=== PATIENT | male | born 1955 | race Caucasian/White ===

== ENCOUNTER → 2020-04-18 10:44 | Outpatient (BNVA) | payer OTHER, SELFPAY | PROVIDERS: Family Provider Family Medicine; Visit Provider Nurse Practitioner | DX: U07.1 COVID-19 (principal) | CPT/HCPCS: 87635 ==

== ENCOUNTER 2021-01-16 09:17 | Outpatient (CLI) | payer OTHER, MEDICARE, SELFPAY ==
--- NOTE | 2021-01-16 09:26 | MR_ITS ---
WS: [id number] MRI LUMBAR SPINE NONCONTRAST HISTORY: Paresthesia; chronic BACK PAIN COMPARISON: CT lumbar spine 02/23/2013 TECHNIQUE: Sagittal and axial multisequence imaging is submitted. Normal lumbar alignment with no compression fractures or marrow edema. Mild disc space narrowing and desiccation at L3-4. No marrow edema or fracture. Conus terminates normally at L1-2 disc level. L1-L2: Normal. L2-L3: Mild asymmetric disc bulging to the LEFT. Broad-based disc protrusion with annular fissure in the LEFT foramen and extraforaminal. L3-L4: Mild annular disc bulging and osteophytic ridging. Mild bilateral foraminal stenosis and subar ticular recess narrowing. L4-L5: Mild annular disc bulging. Diffuse osteophytic ridging around the vertebral bodies with ligame ntum flavum disease and facet arthritis. Moderate bilateral foraminal stenosis L5-S1: Mild annular disc bulge is asymmetric to the LEFT. Disc osteophyte complex extending into the LEFT foramen with facet arthritis. Central shallow disc protrusion. More broad-based disc protrusion with annular fissure into the LEFT foramen. Severe LEFT foraminal stenosis and mild on the RIGHT. Paravertebral soft tissues are normal. MR/MR lumbar spine wo con* [id number] IMPRESSION: 1. No fracture. 2. Severe LEFT foraminal stenosis at L5-S1. 3. Moderate bilateral foraminal stenosis at L4-5. 4. Multilevel facet joint arthritis and spondylosis. 5. Broad-based disc protrusion LEFT foramen and extraforaminal at L2-3.
== END 2021-01-16 09:18 | disposition home or self-care (01) ==
LOC: RADSHAW 09:18
PROVIDERS: PCP Family Medicine; Visit Provider Family Medicine
DX: R20.9 Unspecified disturbances of skin sensation (principal); M54.89 Other dorsalgia; M48.07 Spinal stenosis, lumbosacral region; M48.061 Spinal stenosis, lumbar region without neurogenic claudication; M51.26 Other intervertebral disc displacement, lumbar region; M47.816 Spondylosis without myelopathy or radiculopathy, lumbar region
CPT/HCPCS: 72148

== ENCOUNTER 2021-09-18 14:37 | Outpatient (CLI) | payer MEDICARE, SELFPAY ==
--- NOTE | 2021-09-18 14:43 | XR_ITS ---
WS: [id number] XR shoulder RT min 2V* [id number] REASON FOR EXAM: RIGHT SHOULDER PAIN FINDINGS: No fracture or dislocation. No focal bone lesion. Narrowing of the acromioclavicular joint with marginal osteophytes. Glenohumeral joint is intact and relatively well-preserved. No soft tissue abnormality. XR/XR shoulder RT min 2V* [id number] IMPRESSION: No acute abnormality. Osteoarthritis of the acromioclavicular joint.
== END 2021-09-18 14:38 | disposition home or self-care (01) ==
LOC: RAD 14:40
PROVIDERS: PCP Family Medicine; Visit Provider Family Medicine
DX: M19.011 Primary osteoarthritis, right shoulder (principal)
CPT/HCPCS: 73030

== ENCOUNTER 2021-09-30 12:00 | Outpatient (CLI) | payer MEDICARE, SELFPAY | END 2021-09-30 12:01 | disposition home or self-care (01) | LOC: SLEEP 10-02 11:52 | PROVIDERS: PCP Family Medicine; Visit Provider Family Medicine | DX: G47.10 Hypersomnia, unspecified (principal) | CPT/HCPCS: G0399 ==

== ENCOUNTER → 2022-05-07 09:50 | Outpatient (BNVA) | payer MEDICARE, SELFPAY | PROVIDERS: PCP Family Medicine; Visit Provider Family Medicine | DX: E78.5 Hyperlipidemia, unspecified (principal) | CPT/HCPCS: 80053; 80061 ==

== ENCOUNTER → 2022-08-02 16:03 | Outpatient (BNVA) | payer MEDICARE, SELFPAY | PROVIDERS: PCP Family Medicine; Visit Provider Registered Nurse Neonatal Intensive Care | DX: R05.9 Cough, unspecified (principal) | CPT/HCPCS: 87426 ==

== ENCOUNTER → 2023-02-05 10:16 | Outpatient (BNVA) | payer MEDICARE, SELFPAY | PROVIDERS: PCP Family Medicine; Visit Provider Family Medicine | DX: Z00.00 Encounter for general adult medical examination without abnormal findings (principal); E78.00 Pure hypercholesterolemia, unspecified; I10 Essential (primary) hypertension; Z13.1 Encounter for screening for diabetes mellitus | CPT/HCPCS: 80053; 80061; 83036; 84153; 85025 ==

== ENCOUNTER → 2023-05-13 09:47 | Outpatient (BNVA) | payer MEDICARE, SELFPAY | PROVIDERS: PCP Family Medicine; Visit Provider Family Medicine | DX: E78.5 Hyperlipidemia, unspecified (principal); I25.10 Atherosclerotic heart disease of native coronary artery without angina pectoris | CPT/HCPCS: 80048; 80061 ==

== ENCOUNTER → 2023-07-06 08:38 | Outpatient (BNVA) | payer MEDICARE, SELFPAY | PROVIDERS: PCP Family Medicine; Visit Provider Family Medicine | DX: E78.00 Pure hypercholesterolemia, unspecified (principal) | CPT/HCPCS: 80061 ==

== ENCOUNTER → 2023-11-12 10:03 | Outpatient (BNVA) | payer MEDICARE, SELFPAY | PROVIDERS: PCP Family Medicine; Visit Provider Family Medicine | DX: R73.9 Hyperglycemia, unspecified (principal) | CPT/HCPCS: 83036 ==

== ENCOUNTER → 2023-12-02 10:09 | Outpatient (BNVA) | payer MEDICARE, SELFPAY | PROVIDERS: PCP Family Medicine; Visit Provider Family Medicine | DX: E11.9 Type 2 diabetes mellitus without complications (principal); E78.00 Pure hypercholesterolemia, unspecified | CPT/HCPCS: 80053; 80061; 83036 ==

== ENCOUNTER → 2024-05-02 08:02 | Outpatient (BNVA) | payer MEDICARE, SELFPAY | PROVIDERS: PCP Family Medicine; Visit Provider Family Medicine | DX: Z00.00 Encounter for general adult medical examination without abnormal findings (principal); I10 Essential (primary) hypertension; E78.00 Pure hypercholesterolemia, unspecified; E11.9 Type 2 diabetes mellitus without complications | CPT/HCPCS: 85025 ==

== ENCOUNTER → 2024-05-04 09:50 | Outpatient (BNVA) | payer MEDICARE, SELFPAY | PROVIDERS: PCP Family Medicine; Visit Provider Family Medicine | DX: N18.9 Chronic kidney disease, unspecified (principal) | CPT/HCPCS: 80053; 80061; 83036; 85025 ==

== ENCOUNTER → 2024-09-15 10:00 | Outpatient (BNVA) | payer MEDICARE, SELFPAY | PROVIDERS: PCP Family Medicine; Visit Provider Family Medicine | DX: N18.9 Chronic kidney disease, unspecified (principal); E11.9 Type 2 diabetes mellitus without complications; Z00.00 Encounter for general adult medical examination without abnormal findings; E78.00 Pure hypercholesterolemia, unspecified; I10 Essential (primary) hypertension | CPT/HCPCS: 80053; 80061; 83036; 85025 ==

== ENCOUNTER → 2025-06-20 08:18 | Outpatient (BNVA) | payer MEDICARE, SELFPAY | PROVIDERS: PCP Family Medicine; Visit Provider Family Medicine | DX: R73.9 Hyperglycemia, unspecified (principal); I25.10 Atherosclerotic heart disease of native coronary artery without angina pectoris; R35.1 Nocturia | CPT/HCPCS: 80053; 80061; 83036; 84153; 85025 ==

== ENCOUNTER → 2025-06-25 16:48 | Outpatient (BNVA) | payer MEDICARE, SELFPAY | PROVIDERS: PCP Family Medicine; Visit Provider Family Medicine | DX: R09.81 Nasal congestion (principal) | CPT/HCPCS: 85025; 85651; 86140 ==

== ENCOUNTER 2025-09-03 12:32 | Emergency (ER) | payer MEDICARE, SELFPAY ==
[2025-09-03 12:50] VITALS: BP 167/80; PULSE 58; TEMP 36.6; O2SAT 99; BMI 24.3
--- OUTSIDE RECORDS SUMMARY | 2025-09-03 12:58 | XMS_ITS | Encounter Summary ---
Author Organization [facility] Address [address] [place] [address] Care Team Providers Care Breast Worker Name Role Phone Charlie Magana MD Primary Care Provider + [phone] Encounter Details Date Type Department Care Team (Latest Contact Info) Description 10/26/2006 Outpatient Historical [facility] Cardiology- Johan [address] [place] [address] Gillian Cantu FNP [address] [place] [address] Benign Hypertension (Primary Dx); Family History of Other Cardiovascular Diseases; Other and Unspecified Hyperlipidemia Social History Tobacco Use Types Packs/Day Years Used Date Smoking Tobacco: Never Assessed Sex and Gender Information Value Date Recorded Sex Assigned at Not on file Legal Sex Male 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
--- OUTSIDE RECORDS SUMMARY | 2025-09-03 12:58 | XMS_ITS | Encounter Summary ---
Author Organization [facility] Address [address] [place] [address] Care Team Providers Care Link Machine Operator Name Role Phone Charlie Magana MD Primary Care Provider + [phone] Encounter Details Date Type Department Care Team (Latest Contact Info) Description 08/11/2008 Outpatient Historical [facility] Cardiac [address] [place] [phone] Ed, Physician NO ADDRESS ON FILE Harvey Joseph MD NO ADDRESS ON FILE Jules Mensah MD [address] [place] [address] [place] [phone] Unspecified Chest Pain Social History Tobacco Use Types Packs/Day Years Used Date Smoking Tobacco: Never Assessed Sex and Gender Information Value Date Recorded Sex Assigned at Not on file Legal Sex Male 4:31 AM SUPERVISOR KENNEL Gender Identity Not on file Sexual Orientation Not on file documented as of this encounter Plan of Treatment Not on file documented as of this encounter Procedures Procedure Name Priority Date/Time Associated Diagnosis Comments POC GLUCOSE Routine 08/12/2008 8:54 PM SUPERVISOR KENNEL CARDIAC ENZYMES Routine 08/12/2008 12:25 PM SUPERVISOR KENNEL CARDIAC ENZYMES Routine 08/12/2008 6:09 AM SUPERVISOR KENNEL CBC WITH DIFFERENTIAL Routine 08/12/2008 6:09 AM SUPERVISOR KENNEL BASIC METABOLIC PANEL Routine 08/12/2008 6:09 AM SUPERVISOR KENNEL CARDIAC ENZYMES Stat 08/12/2008 12:25 AM SUPERVISOR KENNEL CBC WITH DIFFERENTIAL Stat 08/12/2008 12:25 AM SUPERVISOR KENNEL PTT Stat 08/12/2008 12:25 AM SUPERVISOR KENNEL PROTIME-INR Stat 08/12/2008 12:25 AM SUPERVISOR KENNEL BASIC METABOLIC PANEL Stat 08/12/2008 12:25 AM SUPERVISOR KENNEL XR CHEST PA OR AP 1 VW Routine 08/12/2008 12:19 AM SUPERVISOR KENNEL documented in this encounter Results * (ABNORMAL) POC GLUCOSE (08/12/2008 8:54 PM SUPERVISOR KENNEL) Pathologist [facility] GLUCOSE POC 119(H) 60 - 100 mg/dL [facility] Venous blood specimen (specimen) 08/12/2008 8:54 PM SUPERVISOR KENNEL 08/12/2008 9:28 PM SUPERVISOR KENNEL us Jules Mensah MD POINT OF CARE TESTING Final Re sult INTERFACE SYSTEM Refer to clinic/hospital department [facility]# [id number] [address] [place] [address] * CARDIAC ENZYMES (08/12/2008 12:25 PM SUPERVISOR KENNEL) [facility] TROPONIN I <0.1 0.0 - 1.3 ng/mL [facility] CKMB 0.3 0.0 - 5.0 ng/mL [facility] Blood specimen (specimen) 08/12/2008 12:25 PM SUPERVISOR KENNEL 08/12/2008 12:31 PM SUPERVISOR KENNEL us Harvey Joseph MD CHEMISTRY ORDERABLES Shaista l Result Performing Organization Address [facility] de Phone Number INTERFACE SYSTEM Refer to clinic/hospital department [facility] CLIA# [id number] [address] [place] [address] * CARDIAC ENZYMES (08/12/2008 6:09 AM SUPERVISOR KENNEL) TROPONIN I <0.1 0.0 - 1.3 ng/mL [facility] CKMB 0.5 0.0 - 5.0 ng/mL [facility] Blood specimen (specimen) 08/12/2008 6:09 AM SUPERVISOR KENNEL 08/12/2008 6:17 AM SUPERVISOR KENNEL Harvey Joseph MD CHEMISTRY ORDERABLES Shaista l Result Performing Organization Address [facility] de Phone Number INTERFACE SYSTEM Refer to clinic/hospital department [facility] CLIA# [id number] [address] [place] [phone] * BASIC METABOLIC PANEL (08/12/2008 6:09 AM SUPERVISOR KENNEL) Pathologist [facility] OSMOLALITY, CALCULATED 293 275 - 295 mOsm/Kg [facility] CREATININE 1.1 0.7 - 1.5 mg/dL [facility] CALCIUM 9.5 8.4 - 10.5 mg/dL [facility] GLUCOSE 110 70 - 110 mg/dL [facility] CHLORIDE 106 95 - 110 mEq/L [facility] ANION GAP 13 9 - 20 mEq/L [facility] SODIUM 141 136 - 145 mEq/L [facility] BUN 18 9 - 20 mg/dL [facility] CO2 26 22 - 32 mmol/l [facility] POTASSIUM 4.2 3.5 - 5.0 mEq/L [facility] Blood specimen (specimen) 08/12/2008 6:09 AM SUPERVISOR KENNEL 08/12/2008 6:17 AM SUPERVISOR KENNEL Jules Mensah MD CHEMISTRY ORDERABLES Final Res ult INTERFACE SYSTEM Refer to clinic/hospital department [facility] CLIA# [id number] [facility] [place] [address] * (ABNORMAL) CBC WITH DIFFERENTIAL (08/12/2008 6:09 AM SUPERVISOR KENNEL) NEUTROPHIL ABSOLUTE 5.3 2.0 - 8.0 K/ul [facility] NEUTROPHILS 62.6 42.2 - 75.2 % [facility] HEMATOCRIT 41.8 41.0 - 53.0 % [facility] EOSINOPHILS 3.3 0.0 - 7.0 % [facility] PLATELETS 276 140 - 440 K/ul [facility] EOSINOPHIL ABSOLUTE 0.3 0.0 - 0.7 K/ul [facility] RBC 4.62 4.60 - 6.20 Mil/ul [facility] LYMPHOCYTES 22.4(L) 24.0 - 44.0 % [facility] MCHC 34.0 30.0 - 35.0 g/dL [facility] LYMPHOCYTE ABSOLUTE 1.9 1.2 - 4.0 K/ul [facility] MCV 90.5 84.0 - 103.0 Fl [facility] MPV 9.1 8.9 - 12.8 Fl [facility] BASOPHILS ABSOLUTE 0.1 0.0 - 0.2 K/ul [facility] BASOPHILS 0.6 0.0 - 1.0 % [facility] HEMOGLOBIN 14.2 14.0 - 18.0 g/dL [facility] RDW 13.3 11.0 - 14.5 % [facility] MONOCYTE ABSOLUTE 0.9(H) 0.1 - 0.6 K/ul [facility] MONOCYTES 11.1(H) 2.0 - 10.0 % [facility] WBC 8.4 4.8 - 10.8 K/ul [facility] MCH 30.7 27.0 - 34.0 pg [facility] Blood specimen (specimen) 08/12/2008 6:09 AM SUPERVISOR KENNEL 08/12/2008 6:17 AM SUPERVISOR KENNEL Jules Mensah MD HEMATOLOGY ORDERABLES Final Re sult Performing Organization Address [facility] Phone Number INTERFACE SYSTEM Refer to clinic/hospital department [facility] CLIA# [id number] [address] [place] [address] * (ABNORMAL) BASIC METABOLIC PANEL (08/12/2008 12:25 AM SUPERVISOR KENNEL) ANION GAP 9 9 - 20 mEq/L [facility] SODIUM 136 136 - 145 mEq/L [facility] BUN 21(H) 9 - 20 mg/dL [facility] CO2 28 22 - 32 mmol/l [facility] POTASSIUM 3.9 3.5 - 5.0 mEq/L [facility] OSMOLALITY, CALCULATED 284 275 - 295 mOsm/Kg [facility] CREATININE 1.1 0.7 - 1.5 mg/dL [facility] CALCIUM 9.6 8.4 - 10.5 mg/dL [facility] GLUCOSE 115(H) 70 - 110 mg/dL [facility] CHLORIDE 103 95 - 110 mEq/L [facility] Blood specimen (specimen) 08/12/2008 12:25 AM SUPERVISOR KENNEL 08/12/2008 12:25 AM SUPERVISOR KENNEL Harvey Joseph MD CHEMISTRY ORDERABLES Shaista l Result Performing Organization Address [facility] Phone Number INTERFACE SYSTEM Refer to clinic/hospital department [facility] CLIA# [id number] [facility] [place] [address] * (ABNORMAL) CBC WITH DIFFERENTIAL (08/12/2008 12:25 AM SUPERVISOR KENNEL) WBC 11.3(H) 4.8 - 10.8 K/ul [facility] MCH 31.1 27.0 - 34.0 pg [facility] NEUTROPHIL ABSOLUTE 8.5(H) 2.0 - 8.0 K/ul [facility] NEUTROPHILS 75.8(H) 42.2 - 75.2 % [facility] HEMATOCRIT 44.6 41.0 - 53.0 % [facility] EOSINOPHILS 2.4 0.0 - 7.0 % [facility] PLATELETS 318 140 - 440 K/ul [facility] EOSINOPHIL ABSOLUTE 0.3 0.0 - 0.7 K/ul [facility] RBC 4.99 4.60 - 6.20 Mil/ul [facility] LYMPHOCYTES 13.5(L) 24.0 - 44.0 % [facility] MCHC 34.8 30.0 - 35.0 g/dL [facility] LYMPHOCYTE ABSOLUTE 1.5 1.2 - 4.0 K/ul [facility] MCV 89.4 84.0 - 103.0 Fl [facility] MPV 9.2 8.9 - 12.8 Fl [facility] BASOPHILS ABSOLUTE 0.0 0.0 - 0.2 K/ul [facility] BASOPHILS 0.3 0.0 - 1.0 % [facility] HEMOGLOBIN 15.5 14.0 - 18.0 g/dL [facility] RDW 13.2 11.0 - 14.5 % [facility] MONOCYTE ABSOLUTE 0.9(H) 0.1 - 0.6 K/ul [facility] MONOCYTES 8.0 2.0 - 10.0 % [facility] Blood specimen (specimen) 08/12/2008 12:25 AM SUPERVISOR KENNEL 08/12/2008 12:25 AM SUPERVISOR KENNEL Harvey Joseph MD HEMATOLOGY ORDERABLES Fin al Result INTERFACE SYSTEM Refer to clinic/hospital department [facility] CLIA# [id number] [address] [place] [phone] * PTT (08/12/2008 12:25 AM SUPERVISOR KENNEL) PTT 31.2 22.5 - 36.5 Secs [facility] Comment: Therapeutic Range: Hi-level PE/DVT heparin protocol 80.1 -95.0 sec Lo-level PE/DVT heparin protocol 67.1 - 80.0 sec Cardiac Heparin Protocol 67.1 - 85.0 sec Neuro Heparin Protocol 67.1 - 80.0 sec As of 12/22/2007 note change in APTT Normal Range. Blood specimen (specimen) 08/12/2008 12:25 AM SUPERVISOR KENNEL 08/12/2008 12:25 AM SUPERVISOR KENNEL us Harvey Joseph MD HEMATOLOGY ORDERABLES Fin al Result INTERFACE SYSTEM Refer to clinic/hospital department [facility] CLIA# [id number] [address] [place] [phone] * PROTIME-INR (08/12/2008 12:25 AM SUPERVISOR KENNEL) INR 1.0 [facility] Comment: Expected Values for INR: DVT/PE Goal INR 2.5; range 2.0 - 3.0 Valve Replacement Tissue Goal INR 2.5; range 2.0 - 3.0 Mechanical Goal INR 3.0; range 2.5 - 3.5 POST-PR Goal INR 2.5; range 2.0 - 3.0 or Goal 3.0; range 2.5 - 3.5 Atrial Fibrillation Goal INR 2.5; range 2.0 - 3.0 Ischemic Stroke Goal INR 2.5; range 2.0 - 3.0 For additional information see Guidelines for Anticoagulation available from the pharmacy [facility] [phone] PROTIME 14.1 12.8 - 15.8 Secs [facility] Comment:As of 2007 not e change in normal range. Blood specimen (specimen) 08/12/2008 12:25 AM SUPERVISOR KENNEL 08/12/2008 12:25 AM SUPERVISOR KENNEL us Harvey Joseph MD HEMATOLOGY ORDERABLES Fin al Result Performing Organization Address [facility] Phone Number INTERFACE SYSTEM Refer to clinic/hospital department [facility] CLIA# [id number] [address] [place] [id number] * CARDIAC ENZYMES (08/12/2008 12:25 AM SUPERVISOR KENNEL) TROPONIN I <0.1 0.0 - 1.3 ng/mL [facility] CKMB 0.3 0.0 - 5.0 ng/mL [facility] Blood specimen (specimen) 08/12/2008 12:25 AM SUPERVISOR KENNEL 08/12/2008 12:25 AM SUPERVISOR KENNEL Harvey Joseph MD CHEMISTRY ORDERABLES Shaista l Result Performing Organization Address [facility] Phone Number INTERFACE SYSTEM Refer to clinic/hospital department [facility] CLIA# [id number] [address] [place] [id number] * XR CHEST PA OR AP (08/12/2008 12:19 AM SUPERVISOR KENNEL) Anatomical Region Laterality Modality Chest Other 08/12/2008 12:1 9 AM SUPERVISOR KENNEL Narrative 08/13/2008 12:52 AM SUPERVISOR KENNEL Exam: Chest - Portable Date/Time of Exam: Aug 12, 2008 12:19:59 AM History: Chest pain. Comparison: None. Findings: Lungs show no confluent airspace disease or air bronchograms. There is a radiodensity over the left anterior 6th rib end that is secondary to confluence of shadows. No effusions are present. Cardiac silhouette and pulmonary vasculature are unremarkable. Extensive calcification in the subcarinal nodes is present. Cardiac silhouette is within normal limits in size. vasculature is unremarkable. Bony structures are unremarkable. Impression: Unremarkable study. - Dictated By: MD Bryce Lyles Electronically Signed By: MD Bryce LylesMD Date Signed: 08/13/08 Procedure Note Bryce Lyles A - 08/13/2008 Exam: Chest - Portable Date/Time of Exam: Aug 12, 2008 12:19:59 AM History: Chest pain. Comparison: None. Findings: Lungs show no confluent airspace disease or air bronchograms. There is aradiodensity over the left anterior 6th rib end that is secondary to confluence of shadows. Noeffusions are present. Cardiac silhouette and pulmonary vasculature are unremarkable. Extensivecalcification in the subcarinal nodes is present. Cardiac silhouette is within normal limits in size. vasculatureis unremarkable. Bony structures are unremarkable. Impression: Unremarkable study. - Dictated By: MD Bryce Lyles Electronically Signed By: MD Bryce LylesMD Date Signed: 08/13/08 Harvey Joseph MD DIAGNOSTIC IMAGING ORDERA BLES Final Result documented in this encounter Visit Diagnoses Diagnosis Chest pain, unspecified documented in this encounter Care Teams Link Machine Operator Relationship Specialty [place] [address] [place] [phone] PCP - General Family Practice 12/01/16 documented as of this encounter
--- OUTSIDE RECORDS SUMMARY | 2025-09-03 12:58 | XMS_ITS | Encounter Summary ---
Author Organization [facility] Address [address] [place] [address] Care Team Providers Care Deflector Operator Name Role Phone Charlie Magana MD Primary Care Provider + [phone] Encounter Details Date Type Department Care Team (Latest Contact Info) Description 09/30/2008 Outpatient Historical [facility] Emergency Department [address] [place] [phone] Ed, Physician NO ADDRESS ON FILE Manny James MD [address] [place] [phone] Jules Mensah MD [address] [place] [address], [place] [address] Unspecified Chest Pain; Unspecified Essential Hypertension; Other and Unspecified Hyperlipidemia; Intermediate Coronary Syndrome (CMS/HCC) Social History Tobacco Use Types Packs/Day Years Used Date Smoking Tobacco: Never Assessed Sex and Gender Information Value Date Recorded Sex Assigned at Not on file Legal Sex Male 4:31 AM ROOFER METAL Gender Identity Not on file Sexual Orientation Not on file documented as of this encounter Plan of Treatment Not on file documented as of this encounter Procedures Procedure Name Priority Date/Time Associated Diagnosis Comments CARDIAC ENZYMES Routine 10/01/2008 6:16 AM ROOFER METAL CARDIAC ENZYMES Routine 10/01/2008 12:03 AM ROOFER METAL XR CHEST PA OR AP 1 VW Routine 09/30/2008 6:30 PM ROOFER METAL CARDIAC ENZYMES Stat 09/30/2008 6:22 PM ROOFER METAL CBC WITH DIFFERENTIAL Stat 09/30/2008 6:22 PM ROOFER METAL PTT Stat 09/30/2008 6:22 PM ROOFER METAL PROTIME-INR Stat 09/30/2008 6:22 PM ROOFER METAL BASIC METABOLIC PANEL Stat 09/30/2008 6:22 PM ROOFER METAL documented in this encounter Results * CARDIAC ENZYMES (10/01/2008 6:16 AM ROOFER METAL) TROPONIN I <0.1 0.0 - 1.3 ng/mL [facility] CKMB 0.5 0.0 - 5.0 ng/mL [facility] Blood specimen (specimen) 10/01/2008 6:16 AM ROOFER METAL 10/01/2008 6:25 AM ROOFER METAL us Manny James MD CHEMISTRY ORDERABLES Final R esult INTERFACE SYSTEM Refer to clinic/hospital department [facility]# [id number] [address] [place] [address] * CARDIAC ENZYMES (10/01/2008 12:03 AM ROOFER METAL) TROPONIN I <0.1 0.0 - 1.3 ng/mL [facility] CKMB 0.6 0.0 - 5.0 ng/mL [facility] Blood specimen (specimen) 10/01/2008 12:03 AM ROOFER METAL 10/01/2008 12:12 AM ROOFER METAL us Manny James MD CHEMISTRY ORDERABLES Final R esult INTERFACE SYSTEM Refer to clinic/hospital department [facility] CLIA# [id number] [facility] [place] [address] * XR CHEST PA OR AP (09/30/2008 6:30 PM ROOFER METAL) Anatomical Region Laterality Modality Chest Other 09/30/2008 6:30 PM ROOFER METAL Narrative 09/30/2008 7:24 PM ROOFER METAL A portable chest at 1826 was obtained and the prior exam is August 12, 2008. Heart size is normal and the aorta is ectatic. Calcified mediastinal lymph nodes are noted. There is no focal airspace opacity or effusion and no pneumothorax. Degenerative changes are noted in the spine. Impression: 1. No active pulmonary disease. Old granulomatous changes are noted. - Dictated By: Miranda Green M.D. Electronically Signed By: Miranda Green M.D. Date Signed: 09/30/08 Procedure Note Miranda Green MD - 09/30/2008 A portable chest at 1826 was obtained and the prior exam is August. Heart size is normal and the aorta is ectatic. Calcified mediastinal lymphnodes are noted. There is no focal airspace opacity or effusion and no pneumothorax. Degenerativechanges are noted in the spine. Impression: 1. No active pulmonary disease. Old granulomatous changes are noted. - Dictated By: Miranda Green M.D. Electronically Signed By: Miranda Green M.D. Date Signed: 09/30/08 us Manny James MD DIAGNOSTIC IMAGING ORDERABLE S Final Result * (ABNORMAL) BASIC METABOLIC PANEL (09/30/2008 6:22 PM ROOFER METAL) POTASSIUM 3.9 3.5 - 5.0 mEq/L [facility] OSMOLALITY, CALCULATED 296(H) 275 - 295 mOsm/Kg [facility] SODIUM 143 136 - 145 mEq/L [facility] CALCIUM 9.7 8.4 - 10.5 mg/dL [facility] CREATININE 1.0 0.7 - 1.5 mg/dL [facility] CHLORIDE 107 95 - 110 mEq/L [facility] BUN 16 9 - 20 mg/dL [facility] ANION GAP 14 9 - 20 mEq/L [facility] GLUCOSE 118(H) 70 - 110 mg/dL [facility] CO2 26 22 - 32 mmol/l [facility] Blood specimen (specimen) 09/30/2008 6:22 PM ROOFER METAL 09/30/2008 6:31 PM ROOFER METAL us Manny James MD CHEMISTRY ORDERABLES Final R esult INTERFACE SYSTEM Refer to clinic/hospital department [facility] CLIA# [id number] [address] [place] [address] * (ABNORMAL) CBC WITH DIFFERENTIAL (09/30/2008 6:22 PM ROOFER METAL) LYMPHOCYTE ABSOLUTE 1.2 1.2 - 4.0 K/ul [facility] MCV 88.2 84.0 - 103.0 Fl [facility] MPV 9.4 8.9 - 12.8 Fl [facility] BASOPHILS ABSOLUTE 0.0 0.0 - 0.2 K/ul [facility] BASOPHILS 0.4 0.0 - 1.0 % [facility] HEMOGLOBIN 15.6 14.0 - 18.0 g/dL [facility] RDW 13.2 11.0 - 14.5 % [facility] MONOCYTE ABSOLUTE 0.9(H) 0.1 - 0.6 K/ul [facility] MONOCYTES 11.1(H) 2.0 - 10.0 % [facility] WBC 8.5 4.8 - 10.8 K/ul [facility] MCH 30.8 27.0 - 34.0 pg [facility] NEUTROPHIL ABSOLUTE 6.1 2.0 - 8.0 K/ul [facility] NEUTROPHILS 72.2 42.2 - 75.2 % [facility] HEMATOCRIT 44.7 41.0 - 53.0 % [facility] EOSINOPHILS 2.2 0.0 - 7.0 % [facility] PLATELETS 287 140 - 440 K/ul [facility] EOSINOPHIL ABSOLUTE 0.2 0.0 - 0.7 K/ul [facility] RBC 5.07 4.60 - 6.20 Mil/ul [facility] LYMPHOCYTES 14.1(L) 24.0 - 44.0 % [facility] MCHC 34.9 30.0 - 35.0 g/dL [facility] Blood specimen (specimen) 09/30/2008 6:22 PM ROOFER METAL 09/30/2008 6:31 PM ROOFER METAL Manny James MD HEMATOLOGY ORDERABLES Final Result Performing Organization Address [facility] Phone Number INTERFACE SYSTEM Refer to clinic/hospital department [facility] CLIA# [id number] [address] [place] [address] * PTT (09/30/2008 6:22 PM ROOFER METAL) PTT 29.0 22.5 - 36.5 Secs [facility] Comment: Therapeutic Range: Hi-level PE/DVT heparin protocol 80.1 -95.0 sec Lo-level PE/DVT heparin protocol 67.1 - 80.0 sec Cardiac Heparin Protocol 67.1 - 85.0 sec Neuro Heparin Protocol 67.1 - 80.0 sec As of 12/22/2007 note change in APTT Normal Range. Blood specimen (specimen) 09/30/2008 6:22 PM ROOFER METAL 09/30/2008 6:31 PM ROOFER METAL Manny James MD HEMATOLOGY ORDERABLES Final Result Performing Organization Address [facility] Phone Number INTERFACE SYSTEM Refer to clinic/hospital department [facility] CLIA# [id number] [address] [place] [address] * PROTIME-INR (09/30/2008 6:22 PM ROOFER METAL) INR 1.0 [facility] Comment: Expected Values for INR: DVT/PE Goal INR 2.5; range 2.0 - 3.0 Valve Replacement Tissue Goal INR 2.5; range 2.0 - 3.0 Mechanical Goal INR 3.0; range 2.5 - 3.5 POST-AZ Goal INR 2.5; range 2.0 - 3.0 or Goal 3.0; range 2.5 - 3.5 Atrial Fibrillation Goal INR 2.5; range 2.0 - 3.0 Ischemic Stroke Goal INR 2.5; range 2.0 - 3.0 For additional information see Guidelines for Anticoagulation available from the pharmacy [facility] [phone] PROTIME 14.0 12.8 - 15.8 Secs [facility] Comment:As of 2007 not e change in normal range. Blood specimen (specimen) 09/30/2008 6:22 PM ROOFER METAL 09/30/2008 6:31 PM ROOFER METAL Manny James MD HEMATOLOGY ORDERABLES Final Result Performing Organization Address [facility] Phone Number INTERFACE SYSTEM Refer to clinic/hospital department [facility] CLIA# [id number] [address] [place] [address] * CARDIAC ENZYMES (09/30/2008 6:22 PM ROOFER METAL) CKMB 0.7 0.0 - 5.0 ng/mL [facility] TROPONIN I <0.1 0.0 - 1.3 ng/mL [facility] Blood specimen (specimen) 09/30/2008 6:22 PM ROOFER METAL 09/30/2008 6:31 PM ROOFER METAL Manny James MD CHEMISTRY ORDERABLES Final R esult Performing Organization Address [facility] de Phone Number INTERFACE SYSTEM Refer to clinic/hospital department [facility] CLIA# [id number] [address] [place] [address] documented in this encounter Visit Diagnoses Diagnosis Chest pain, unspecified Unspecified essential hypertension Other and unspecified hyperlipidemia Intermediate coronary syndrome (CMS/HCC) Intermediate coronary syndrome documented in this encounter Care Teams Deflector Operator Relationship Specialty Start Date End Date Charlie Magana MD [address] [place] [phone] PCP - General Family Practice 12/01/16 documented as of this encounter
--- OUTSIDE RECORDS SUMMARY | 2025-09-03 12:58 | XMS_ITS | Encounter Summary ---
Author Organization [facility] Address [address] [place] [address] Care Team Providers Care Power Reactor Supervisor Name Role Phone Charlie Magana MD Primary Care Provider + [phone] Encounter Details Date Type Department Care Team (Latest Contact Info) Description 05/26/2005 Outpatient Historical [facility] [address] [place] [phone] Pj Meraz MD NO ADDRESS ON FILE Benign hypertension (Primary Dx); MIXED HYPERLIPIDEMIA Social History Tobacco Use Types Packs/Day Years Used Date Smoking Tobacco: Never Assessed Sex and Gender Information Value Date Recorded Sex Assigned at Not on file 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
--- OUTSIDE RECORDS SUMMARY | 2025-09-03 12:58 | XMS_ITS | Clinical Summary ---
Author Organization [facility] Address [address] [place] [address] Care Team Providers Care Booster Pump Operator Name Role Phone Charlie Magana MD Primary Care Provider + [phone] Allergies Active Allergy Reactions Criticality Noted Date Comments Ampicillin Rash High 10/17/2008 Beta-Blockers (Beta-Adrenergic Blocking Agts) Other (See Comments) 11/21/2014 Fatigue and weakness Penicillins Rash,Unknown High 10/17/2008 Medications vit C/E/Zn/coppr/lut ein/zeaxan (PRESERVISION AREDS-2 ORAL) Take by mouth 2 times daily. 9 Active azelastine (ASTELIN) 137 mcg/actuation nasal spray Administer 2 Sprays in each nostril 2 times daily. Active pantoprazole (PROTONIX) 40 mg Tablet, Delayed Release (E.C.) Take 1 Tablet (40 mg) by mouth daily. 90 Tablet 3 3 Active aspirin (ECOTRIN EC) 81 mg Tablet, Delayed Release (E.C.) Take 81 mg by mouth daily. Active loratadine (CLARITIN) 10 mg tablet Active nitroglycerin (NITROSTAT) 0.4 mg Tablet, Sublingual Place 1 Tablet (0.4 mg) under tongue every 5 minutes as needed for Chest Pain. 25 Tablet 3 4 Active clopidogreL (PLAVIX) 75 mg Tablet Take 1 tablet by mouth once daily 90 Tablet 3 5 Active hydroCHLOROthiaz edy 25 mg tablet Take 1 tablet by mouth once daily 90 Tablet 3 5 Active rosuvastatin (CRESTOR) 40 mg tabletIndication s:Coronary artery disease, unspecified vessel or lesion type, unspecified whether angina present, unspecified whether [place] or transplanted heart,Dyslipidem ia TAKE 1 TABLET BY MOUTH ONCE DAILY AT BEDTIME 90 Tablet 3 5 Active dilTIAZem (Cartia XT) 240 mg Controlled Delivery 24 hour capsule Take 1 capsule by mouth once daily 90 Capsule 3 5 Active losartan (COZAAR) 100 mg tablet Take 1 tablet by mouth once daily 90 Tablet 3 5 Active evolocumab (Repatha SureClick) 140 mg/mL Pen Injector Inject 1 mL (140 mg) by subcutaneous injection every 2 weeks. 2 mL Active Active Problems Problem Noted Date Diagnosed Date Dyspnea on exertion 07/18/2024 Decreased exercise tolerance 07/18/2024 Abnormal cardiovascular stress test 07/11/2024 HTN, goal below 130/80 07/06/2024 Dyslipidemia, goal LDL below 70 07/06/2024 Exudative age-related macula r degeneration of left eye with active choroidal neovascularization 03/29/2024 Bilateral carotid artery stenosis 12/07/2018 Dyslipidemia 04/02/2015 Overview (07/06/2024): Dyslipidemia; 04/02/2015 9:05AM by Merlyn De La Rosa CMT, Office Visit; Promoted; acuity set as *; Nuclear sclerotic cataract of both eyes, early 1 10/09/2013 Age-related macular degeneration, dry, both eyes 08/09/2014 Lumbar radiculopathy 02/24/2013 Benign hypertension 10/17/2008 Overview (07/06/2024): HTN - Status is Inactive; 01/28/2018 4:46PM by Merlyn De La Rosa CMT, Annotation/Addendum; Promoted; acuity set as *; Coronary arteriosclerosis 10/17/2008 Overview (07/06/2024): August 2008 - Coronary angiography for evaluation of ACS revealse severe obstructive plaque throughout the proximal, mid and distal codominant RCA. LVEF 65%. Overlapping 3.5 x 18 mm, 3.5 x 28 mm, 3.5 x 33 mm and 3.5 x 23 mm Cypher drug eluting stents were successfully deployed to the RCA. 10/01/2008 - coronary angiography for Evaluation of chest pain reveals an ostial 95% right coronary artery lesion. The long stented area of the proximal to mid right coronary artery was widely patent except for a small focal 70% stenosis in the mid vessel. The left main was widely patent. The circumflex and the codominant vessel. There was a 20% proximal lesion and a 25% lesion in the posterolateral branch. TheLAD had a 25% mid lesion. LVEF 60%. A 3.5 X 13 MM Cypher was deployed to the ostial RCA and a 3.5 x 8 mm Cypher was deployed to the in-stent restenosis of the RCA. 10/19/2008 - Coronary angiography for evaluation of chest pain reveled widely patent stented area from the ostium down to the posterior descending branch of the codominant right coronary artery. Mild calcified obstructive plaque along the proximal and mid circumflex coronary artery and along the mid left anterior descending. Normal left ventricular function. No mitral insufficiency 11/2010 - Stress ECHO for routine evaluation does not reveal any evidence for coronary ischemia. 07/2012 - Nuclear ST for evaluation of chest pAIN: 1. Myocardial perfusion imaging is normal. No obvious reversible defect is noted to suggest significant myocardial ischemia . No obvious fixed defect is noted to suggest transmural myocardial injury. 2. Global left ventricular systolic function is normal without segmental abnormalities and ejection fraction of 68%. 3. Nonischemic response to stress by electrocardiographic criterion with development of chest pain (optimal for myocardial imaging and reported separately). Excellent functional capacity. 4. No previous study is available for direct comparison. August 2008 - Coronary angiography for evaluation of ACS revealse severe obstructive plaque throughout the proximal, mid and distal codominant RCA. LVEF 65%. Overlapping 3.5 x 18 mm, 3.5 x 28 mm, 3.5 x 33 mm and 3.5 x 23 mm Cypher drug eluting stents were successfully deployed to the RCA. 10/01/2008 - coronary angiography for Evaluation of chest pain reveals an ostial 95% right coronary artery lesion. The long stented area of the proximal to mid right coronary artery was widely patent except for a small focal 70% stenosis in the mid vessel. The left main was widely patent. The circumflex and the codominant vessel. There was a 20% proximal lesion and a 25% lesion in the posterolateral branch. TheLAD had a 25% mid lesion. LVEF 60%. A 3.5 X 13 MM Cypher was deployed to the ostial RCA and a 3.5 x 8 mm Cypher was deployed to the in-stent restenosis of the RCA. 10/19/2008 - Coronary angiography for evaluation of chest pain reveled widely patent stented area from the ostium down to the posterior descending branch of the codominant right coronary artery. Mild calcified obstructive plaque along the proximal and mid circumflex coronary artery and along the mid left anterior descending. Normal left ventricular function. No mitral insufficiency 11/2010 - Stress ECHO for routine evaluation does not reveal any evidence for coronary ischemia. 07/2012 - Nuclear ST for evaluation of chest pAIN: 1. Myocardial perfusion imaging is normal. No obvious reversible defect is noted to suggest significant myocardial ischemia . No obvious fixed defect is noted to suggest transmural myocardial injury. 2. Global left ventricular systolic function is normal without segmental abnormalities and ejection fraction of 68%. 3. Nonischemic response to stress by electrocardiographic criterion with development of chest pain (optimal for myocardial imaging and reported separately). Excellent functional capacity. 4. No previous study is available for direct comparison. CAD (CORONARY ARTERY DISEASE); 01/28/2018 4:29PM by Merlyn De La Rosa CMT, Office Visit; Promoted; acuity set as *; Resolved Problems Problem Noted Date Diagnosed Date Resolved Date Post-COVID chronic cough 07/06/202412/2023 Penile pain 07/20/2019 07/06/2024 Acute sinusitis 07/23/2016 07/06/2024 Overview (07/06/2024): ACUTE SINUSITIS - Status is Inactive; Recorded 07/23/2016 4:49PM by Vero Melendez LPN, Annotation/Addendum; Promoted; acuity set as *; Substernal chest pain 07/13/20122023 Other and unspecified hyperlipidemia 12/12/2008 07/06/2024 Overview (01/30/2021): July 2009 - total cholesterol 116 HDL 30 and LDL 65, triglycerides of 106 December 2009 - total cholesterol 163, HDL 36, triglycerides of 110, LDL 105 February 2010 - total cholesterol 127, HDL 41, LDL 70 and [id number] October 2010 - total cholesterol 149, HDL 36, LDL 99 and triglycerides 72 12/2011 - total cholesterol 114, HDL 29, LDL 67 and triglycerides 90, AST 21, ALT 21 Gastritis 11/20/2008 07/06/2024 Overview (07/06/2024): GASTRITIS - Status is Inactive; Recorded 07/23/2016 4:49PM by Vero Melendez LPN, Annotation/Addendum; Promoted; acuity set as *; Burning chest pain 10/17/2008 9 Encounters Date Type Department Care Team Description 06/26/2025 9:40 AM CDT Office Visit [facility] Ophthalmology [place] [address] [place] [address] Leslie Fields MD Exudative age-related macular degeneration of both eyes with active choroidal neovascularization (CMS/HCC) (Primary Dx); Cystoid macular edema of both eyes; Nuclear sclerotic cataract of both eyes; Night blindness 06/19/2025 Refill [facility] [address] [place] [address] Prince Lui MD 06/05/2025 External Device Data STL ABSTRACTION Provider, Abstract from Last 3 Months Immunizations Immunization Administration Dates Next Due (PNEUMOVAX 23)(50 YRS UP) PN EUMOCOCCAL POLYSACCHARIDE (PPV23) 0.5 ML, IM 10/02/2008 (TDVAX)(7 YRS UP) TETANUS AN D DIPHTHERIA TOXOIDS, ADSORBED (2 LF OF TETANUS TOXOID AND 2 LF OF DIPHTHERIA TOXOID), 0.5ML (PF), IM 10/17/1999 Influenza Seasonal Unspecifi ed Formulation IM 07/13/2015,10/02/2008,10/17/2004 Family History Medical History Relation Name Comments Heart Disease Father Macular Degen Father Stroke Father Glaucoma Maternal Grandmother Heart Disease Mother Stroke Mother Glaucoma Paternal Grandfather Macular Degen Paternal Grandfather Glaucoma Paternal Grandmother Macular Degen Paternal Uncle 1 Macular Degen Paternal Uncle 2 Heart Disease Sister Relation Name Status Comments Father Maternal Grandmother Mother Paternal Grandfather Paternal Grandmother Paternal Uncle 1 Paternal Uncle 2 Sister Social History Tobacco Use Types Packs/Day Years Used Date Smoking Tobacco: Never Smokeless Tobacco: Former Quit: 10/04/2015 Tobacco Cessation:Counseling Given: Not Answered Alcohol Use Standard Drinks/Week Comments No 0 (1 standard drink = 0.6 oz pur e alcohol) Feeling Safe Answer Date Recorded Are you in a relationship wi th someone who hurts you emotionally and/or physically? No 07/18/2024 Sex and Gender Information Value Date Recorded Sex Assigned at Not on file Legal Sex Male 7:59 AM GEAR KEEPER Gender Identity Not on file Sexual Orientation Not on file Last Filed Vital Signs Vital Sign Reading Time Taken Comments Blood Pressure 156/82 10/10/2024 12:06 PM GEAR KEEPER Pulse 55 10/10/2024 12:06 PM GEAR KEEPER Temperature 36.5 C (97.7 F) 07/18/2024 8:05 AM CDT Respiratory Rate 18 06/14/2021 7:10 AM CDT Oxygen Saturation 96% 10/10/2024 12:06 PM GEAR KEEPER Inhaled Oxygen Concentration - - Weight 79.8 kg (176 lb) 10/10/2024 12:06 PM GEAR KEEPER Height 175.3 cm (5' 9 ) 10/10/2024 12:06 PM GEAR KEEPER Body Mass Index 25.99 10/10/2024 12:06 PM GEAR KEEPER Plan of Treatment Upcoming Encounters Date Type Department Care Team (Late st Contact Info) Description 09/04/2025 9:50 AM GEAR KEEPER Office Visit [facility] Ophthalmology [place] [address] [address] Leslie Fields MD [address] [place] [address] 10/16/2025 8:30 AM GEAR KEEPER Procedure visit [facility] Audiology [address] [place] [address] Charlie Gardner AU.D [address] [place] [address] 10/16/2025 9:00 AM GEAR KEEPER Office Visit [facility] Th[facility] [address] [place] [address] Ganesh Mari MD [address] [place] [address] Health Maintenance Due Date Last Done Comments DTAP/TDAP/TD VACCINES (1 - Tdap) 10/18/1999 10/17/19 00 COLORECTAL SCREENING 2000 Colorectal Cancer Screening 2000 FIT-DNA Q 3 years 2000 FIT/FOBT Q 1 year 2000 Flex Sig/CT Colonography Q 5 years 2000 RSV VACCINE (60+ or ) (1 - Risk 50-74 years 1-dose series) 2005 ZOSTER VACCINE (1 of 2) 2005 PNEUMOCOCCAL VACCINE 50+ YEA RS (2 of 2 - PCV) 10/02/2009 10/02/2008 INFLUENZA VACCINE (#1) 2025 , 07/10/2020, 07/13/2015, Additional history exists COVID-19 Vaccine (4 - 2024-2 6 season) 2025 10/11/2021, 12/19/2020, 11/19/2020 Pre-Diabetes and Diabetes Screening 09/15/2027 09/15/2024, 11/30/2019 Procedures Procedure Name Priority Date/Time Associated Diagnosis Comments ZINC LEVEL Routine 06/27/2025 8:30 AM CDT Night blindness VITAMIN A LEVEL Routine 06/27/2025 8:30 AM CDT Night blindness INTRAVITREAL INJECTION, PHARMACOLOGIC AGENT - OU - BOTH EYES Routine 06/26/2025 11:36 AM CDT Exudative age-related macular degeneration of both eyes with active choroidal neovascularization (CMS/HCC) EYE DROPS Routine 06/26/2025 11:36 AM CDT Exudative age-related macular degeneration of both eyes with active choroidal neovascularization (CMS/HCC) EYE DROPS Routine 06/26/2025 11:36 AM CDT Exudative age-related macular degeneration of both eyes with active choroidal neovascularization (CMS/HCC) OCT, RETINA - OU - BOTH EYES Routine 06/26/2025 10:26 AM CDT Exudative age-related macular degeneration of both eyes with active choroidal neovascularization (CMS/HCC) HEMOGLOBIN A1C Routine 09/15/2024 from Last 3 Months or Most Recently Relevant to Health Maintenance Results * (ABNORMAL) ZINC LEVEL (06/27/2025 8:30 AM CDT) ZINC LEVEL 140(H) 60 - 130 mcg/dL [facility] Comment: (Note) This test was developed and its analytical performance characteristics have been determined by [facility]. It has not been cleared or approved by the FDA. This assay has been validated pursuant to the CLIA regulations and is used for clinical purposes. [facility] [address] [place] [address],[address] [place] [address] Bella Scott MD, PhD Test Performed at: @[facility] [address] [place] [address], [address] [place] [phone] Bella Scott MD,PhD Blood 06/27/2025 8:30 AM CDT 06/27/2025 8:31 AM CDT Leslie Fields MD CHEMISTRY ORDERABLES Final Resu lt [facility] [phone] [facility] [address] [place] [address], [address] [place] [phone] * VITAMIN A LEVEL (06/27/2025 8:30 AM CDT) VITAMIN A LEVEL 72 38 - 98 mcg/dL [facility] Comment: (Note) Clin Chem Vol. 34.No.8. [id number]. 1998 Vitamin supplementation within 24 hours prior to blood draw may affect the accuracy of results. This test was developed and its analytical performance characteristics have been determined by [facility]. It has not been cleared or approved by the FDA. This assay has been validated pursuant to the CLIA regulations and is used for clinical purposes. [facility] [address] [facility] [address] [facility] [address] Bella Scott MD, PhD Test Performed at: [facility] [address] [place] [address], [address] [place] [address] Bella Scott MD,PhD Blood 06/27/2025 8:30 AM CDT 06/27/2025 8:31 AM CDT Leslie Fields MD CHEMISTRY ORDERABLES Final Resu lt Performing Organization Address City/[facility]/ZIP Co de Phone Number [facility] [phone] [facility] [address] [place] [address], [address] [place] [address] * INTRAVITREAL INJECTION, PHARMACOLOGIC AGENT - OU - BOTH EYES (06/26/2025 11:36 AM CDT) Narrative [facility] - 06/26/2025 11:36 AM CDT Time Out 06/26/2025. 11:25 AM. Confirmed correct patient, procedure, site, and patient consented. Procedure Right Eye Injection: 2 mg aflibercept (EYLEA) 2 mg/0.05 mL intravitreal syringe Route: Intravitreal, Site: Eye, Right ND: 16623-293-81, Lot: [id number], Expiration date: 09/02/2026 Left Eye Injection: 2 mg aflibercept (EYLEA) 2 mg/0.05 mL intravitreal syringe Route: Intravitreal, Site: Eye, Left ND: 37607-191-34, Lot: [id number], Expiration date: 09/02/2026 Leslie Fields MD OPHTH CLINIC PROCEDURES Final R esult [facility] [id number] [address] [address] * EYE DROPS (06/26/2025 11:36 AM CDT) Narrative [facility] - 06/26/2025 11:36 AM CDT Medications Eye Drops: 2 Drop lidocaine PF (AKTEN PF) 3.5 % ophthalmic gel Route: Both Eyes NDC: 79395-973-60, Lot: [id number] 5 Drop povidone-iodine in balanced salt solution 0.25% Route: Topical, Site: Eye, Bilateral NDC: 7535-6322-58-18-001, Lot: [id number], Expiration date: 06/27/2025 5 Drop proparacaine 0.5 % Route: Topical, Site: Eye, Bilateral NDC: 55387-256-81, Lot: [id number], Expiration date: 03/02/2027 5 Drop tetracaine HCl (PF) 0.5 % Route: Topical, Site: Eye, Bilateral NDC: 6196-4454-32, Lot: [id number] Notes Eye drop orders per protocol for Intravitreal Injection Administer the following medications approximately 1 minute apart into the procedural/operative/affected eye 5 drops proparacaine (OPHTHAINE) 0.5% ophthalmic solution 5 drops of tetracaine (PF) 0.5% ophthalmic solution 5 drop of betadine mixture us Leslie Fields MD [facility] PROCEDURES Final R esult [facility] CLIA# [id number] [address] [address] * EYE DROPS (06/26/2025 11:36 AM CDT) Narrative [facility] - 06/26/2025 11:36 AM CDT Medications Eye Drops: 1 Drop phenylephrine 2.5 % Route: Topical NDC: 75569-754-98, Lot: [id number], Expiration date: 03/04/2026 1 Drop proparacaine 0.5 % Route: Topical NDC: 49179-239-46, Lot: [id number], Expiration date: 10/05/2026 1 Drop tropicamide 1 % Route: Topical NDC: 59820-003-67, Lot: [id number], Expiration date: 11/04/2025 Notes Eye drop orders per protocol for Basic Ordnance Engineering Technician Eye Exam (Dilated) 1 Drop proparacaine (OPHTHAINE) 0.5% ophthalmic solution prior to tonometry 1 Drop tropicamide (MYDRIACYL) 1% ophthalmic solution 1 Drop phenylephrine (AK-DILATE, MYDFRIN) 2.5% ophthalmic solution Result [facility] Leslie Fields MD OPHTH CLINIC PROCEDURES Final R esult Performing Organization Address City/[facility] Co de Phone Number [facility] CLIA# [id number] [address] [place] [address] * OCT, RETINA - OU - BOTH EYES (06/26/2025 10:26 AM CDT) Narrative [facility] OPHTHALMOLOGY ORDERS - 06/26/2025 11:36 AM CDT Optical Coherence Tomography ordered to evaluate the status of the macula: RIGHT EYE: Patchy atrophy There is mild intraretinal fluid LEFT EYE: Few cystic changes Patchy atrophy Leslie Fields MD OPHTH TOMOGRAPHY Final Result Performing Organization Address [facility] Co de Phone Number [facility] OPHTHALMOLOGY ORDERS * HEMOGLOBIN A1C (09/15/2024) ABSTRACTED HGB A1C 6.2 % EXTERNAL LAB Blood 09/15/2024 Result [facility] Charlie Magana MD CHEMISTRY ORDERABLES Final R esult Performing Organization Address City/State/[facility] Co de Phone Number EXTERNAL LAB from Last 3 Months or Most Recently Relevant to Health Maintenance Insurance MEDICARE PART A AND B Advance Directives For more information, please contact: [phone] * Full Code (Latest Code Status on File) Date Activated Date Inactivated Comments 07/18/2024 7:44 AM 07/18/2024 4:10 PM Care Teams Booster Pump Operator Relationship Specialty Start Date End Date Charlie Magana MD [address] [place] [address] PCP - General Family Practice 12/01/16
--- OUTSIDE RECORDS SUMMARY | 2025-09-03 12:58 | XMS_ITS | Encounter Summary ---
Author Organization [facility] Address [address] [place] [address] Care Team Providers Care Supervisor Process Testing Name Role Phone Charlie Magana MD Primary Care Provider + [phone] Encounter Details Date Type Department Care Team (Late st Contact Info) Description 11/22/2007 Outpatient Historical [facility] Cardiology- [place] [address] [place] [phone] Jules Mensah MD [address] [place] [phone] Social History Tobacco Use Types Packs/Day Years Used Date Smoking Tobacco: Never Assessed Sex and Gender Information Value Date Recorded Sex Assigned at Not on file Legal Sex Male 4:31 AM GARAGE WORKER Gender Identity Not on file Sexual Orientation Not on file documented as of this encounter Plan of Treatment Not on file documented as of this encounter Visit Diagnoses Not on filedocumented in this encounter Care Teams Supervisor Process Testing Relationship Specialty Start Date End Date Charlie Magana MD [address] [place] [phone] PCP - General Family Practice 12/01/16 documented as of this encounter
--- OUTSIDE RECORDS SUMMARY | 2025-09-03 12:58 | XMS_ITS | Encounter Summary ---
Author Organization [facility] Address [address] [place] [address] Care Team Providers Care Postal Service Sectional Center Manager Name Role Phone Charlie Magana MD Primary Care Provider + [phone] Encounter Details Date Type Department Care Team (Late st Contact Info) Description 11/25/2007 Outpatient Historical [facility] Cardiology Ancillary Services[facility] [address] [place] [address] Marcio Muñoz MD NO ADDRESS ON FILE Social History Tobacco Use Types Packs/Day Years Used Date Smoking Tobacco: Never Assessed Sex and Gender Information Value Date Recorded Sex Assigned at Not on file Legal Sex Male 4:31 AM VISUAL ARTIST Gender Identity Not on file Sexual Orientation Not on file documented as of this encounter Procedure Notes * Martin Moran - 11/25/2007 12:00 AM CSTAssociated Order(s): ECHOCARDIOGRAM REPORT TREADMILL STRESS ECHOCARDIOGRAM PATIENT NAME: Pritesh Saunders ORDERING PHYSICIAN: Jules Mensah M.D. DATE OF SERVICE: 11/25/2007 SEX: M TECH: : 1955 INDICATIONS: Hypertension, hyperlipidemia, dyspnea, family history of CAD. MEDICATIONS: Benicar, Crestor, Zetia, aspirin. VITAL SIGNS: Resting blood pressure was 130/70 mmHg with a heart rate of 67 beats per minute. Peak blood pressure was 160/80 mmHg. Peak heart rate was 153 bpm (91% of maximal predicted heart rate). ELECTROCARDIOGRAM: Resting electrocardiogram shows sinus rhythm with nonspecific ST-T changes. Withstress, up to 0.[address] depression was noted. No significant arrhythmia was seen. EXERCISE AND SYMPTOMS: He walked 11 minutes on a ramped Raymundo protocol. The test was discontinued due to dyspnea and fatigue. No chest pain was reported. Total workload was 12.8 METs with a double product of 24,480. ECHOCARDIOGRAM: Cardiac chambers are normal in size. Left ventricular wall thickness appears mildlyincreased. Overall systolic function appears normal with an ejection fraction of around 55-60%. Trace mitral, tricuspid and pulmonic insufficiency is seen. Inferior vena cava is normal in size. Rightventricular systolic function appears normal. Post stress, there appears to be improvement in left ventricular contractility and reduction of LV cavity size. No definite new wall motion abnormalities are seen. IMPRESSION: 1. Normal left ventricular systolic function with an ejection fraction of 55-60% and mild hypertrophy, no gross cardiac chamber enlargement or trace valvular regurgitation. 2. Excellent exercise tolerance, attaining 12.8 METs of workload. 3. Mild electrocardiographic changes are seen with exercise, which do not meet diagnostic criteria for ischemia. He denied any chest pain and no new echocardiographic changes were seen post stress tosuggest ischemia at high workload and 91% of maximal predicted heart rate. Martin Moran M.D., F.A.C.C. Cardiology Electronically Signed by Martin Moran M.D. 11/28/2007 08:59 11/25/2007, 4:26 P 11/25/2007 4:59 P, 575 Document #: [id number] cc: AL ARTIST documented in this encounter Plan of Treatment Not on file documented as of this encounter Procedures Procedure Name Priority Date/Time Associated Diagnosis Comments ECHOCARDIOGRAM REPORT 11/28/2007 8:59 AM VISUAL ARTIST documented in this encounter Results * ECHOCARDIOGRAM REPORT (11/28/2007 8:59 AM VISUAL ARTIST) Narrative Transcriptions Martin Moran - 11/25/2007 12:00 AM CST TREADMILL STRESS ECHOCARDIOGRAM PATIENT NAME: Pritesh Saunders ORDERING PHYSICIAN: Jules Mensah M.D. DATE OF SERVICE: 11/25/2007 SEX: M TECH: : 1955 INDICATIONS: Hypertension, hyperlipidemia, dyspnea, family history ofCAD. MEDICATIONS: Benicar, Crestor, Zetia, aspirin. VITAL SIGNS: Resting blood pressure was 130/70 mmHg with a heart rate of67 beats per minute. Peak blood pressure was 160/80 mmHg. Peak heart ratewas 153 bpm (91% of maximal predicted heart rate). ELECTROCARDIOGRAM: Resting electrocardiogram shows sinus rhythm withnonspecific ST-T changes. With stress, up to 0.8 mm upsloping STdepression was noted. No significant arrhythmia was seen. EXERCISE AND SYMPTOMS: He walked 11 minutes on a ramped Raymundo protocol.The test was discontinued due to dyspnea and fatigue. No chest pain wasreported. Total workload was 12.8 METs with a double product of 24,480. ECHOCARDIOGRAM: Cardiac chambers are normal in size. Left ventricularwall thickness appears mildly increased. Overall systolic function appearsnormal with an ejection fraction of around 55-60%. Trace mitral,tricuspid and pulmonic insufficiency is seen. Inferior vena cava is normalin size. Right ventricular systolic function appears normal. Post stress, there appears to be improvement in left ventricularcontractility and reduction of LV cavity size. No definite new wallmotion abnormalities are seen. IMPRESSION: 1. Normal left ventricular systolic function with an ejection fraction of55-60% and mild hypertrophy, no gross cardiac chamber enlargement or tracevalvular regurgitation. 2. Excellent exercise tolerance, attaining 12.8 METs of workload. 3. Mild electrocardiographic changes are seen with exercise, which do notmeet diagnostic criteria for ischemia. He denied any chest pain and no newechocardiographic changes were seen post stress to suggest ischemia athigh workload and 91% of maximal predicted heart rate. Martin Moran M.D., F.A.C.C. Cardiology Electronically Signed by Martin Moran M.D. 11/28/2007 08:59 11/25/2007, 4:26 P 11/25/2007 4:59 P, 575 Document #: [id number] cc: us Martin Moran MD ECHO ORDERABLES Final Result documented in this encounter Visit Diagnoses Not on filedocumented in this encounter Care Teams Postal [employer] Sectional Center Manager Relationship Specialty Start Date End Date Charlie Magana MD [address] [place] [address] PCP - General Family Practice 12/01/16 documented as of this encounter
--- OUTSIDE RECORDS SUMMARY | 2025-09-03 12:58 | XMS_ITS | Encounter Summary ---
Author Organization [facility] Address [address] [place] [address] Care Team Providers Care Broaching Machine Operator Name Role Phone Charlie Magana MD Primary Care Provider + [phone] Encounter Details Date Type Department Care Team (Late st Contact Info) Description 10/07/2008 Emergency [facility] Emergency Department [address] [place] [phone] Ed, Physician NO ADDRESS ON FILE Eddie Quijano MD NO ADDRESS ON FILE Social History Tobacco Use Types Packs/Day Years Used Date Smoking Tobacco: Never Assessed Sex and Gender Information Value Date Recorded Sex Assigned at Not on file Legal Sex Male 4:31 AM ANALYSIS MANAGER Gender Identity Not on file Sexual Orientation Not on file documented as of this encounter Plan of Treatment Not on file documented as of this encounter Procedures Procedure Name Priority Date/Time Associated Diagnosis Comments XR CHEST PA OR AP 1 VW Routine 10/07/2008 5:57 PM ANALYSIS MANAGER CARDIAC ENZYMES Stat 10/07/2008 5:48 PM ANALYSIS MANAGER CBC WITH DIFFERENTIAL Stat 10/07/2008 5:48 PM ANALYSIS MANAGER PTT Stat 10/07/2008 5:48 PM ANALYSIS MANAGER PROTIME-INR Stat 10/07/2008 5:48 PM ANALYSIS MANAGER BASIC METABOLIC PANEL Stat 10/07/2008 5:48 PM ANALYSIS MANAGER documented in this encounter Results * XR CHEST PA OR AP (10/07/2008 5:57 PM ANALYSIS MANAGER) Anatomical Region Laterality Modality Chest Other 10/07/2008 5:57 PM ANALYSIS MANAGER Narrative 10/08/2008 12:36 AM ANALYSIS MANAGER Exam: Chest - Portable Date/Time of Exam: Oct 07, 2008 5:57:49 PM History: Chest pain. Comparison: Prior study 09/30/2008. Findings: The lungs show no confluent airspace disease or air bronchograms. Cardiac silhouette and pulmonary vasculature is unremarkable. No silhouetting of the hemidiaphragms is noted. Comparison to prior study shows no new findings. Impression: Stable exam. - Dictated By: MD Bryce Lyles Electronically Signed By: MD Catarina Lyles Date Signed: 10/08/08 SDM Procedure Note Bryce Lyles MD - 10/08/2008 Exam: Chest - Portable Date/Time of Exam: Oct 07, 2008 5:57:49 PM History: Chest pain. Comparison: Prior study 09/30/2008. Findings: The lungs show no confluent airspace disease or air bronchograms. Cardiacsilhouette and pulmonary vasculature is unremarkable. No silhouetting of the hemidiaphragms isnoted. Comparison to prior study shows no new findings. Impression: Stable exam. - Dictated By: MD Bryce Lyles Electronically Signed By: MD Bryce LylesMD Date Signed: 10/08/08 SDM Eddie Quijano MD DIAGNOSTIC IMAGING ORDERABLES Fi nal Result * (ABNORMAL) BASIC METABOLIC PANEL (10/07/2008 5:48 PM ANALYSIS MANAGER) CREATININE 1.0 0.7 - 1.5 mg/dL [facility] CALCIUM 9.9 8.4 - 10.5 mg/dL [facility] GLUCOSE 150(H) 70 - 110 mg/dL [facility] CHLORIDE 105 95 - 110 mEq/L [facility] SODIUM 140 136 - 145 mEq/L [facility] ANION GAP 13 9 - 20 mEq/L [facility] BUN 14 9 - 20 mg/dL [facility] CO2 26 22 - 32 mmol/l [facility] OSMOLALITY, CALCULATED 291 275 - 295 mOsm/Kg [facility] POTASSIUM 4.0 3.5 - 5.0 mEq/L [facility] Blood specimen (specimen) 10/07/2008 5:48 PM ANALYSIS MANAGER 10/07/2008 6:16 PM ANALYSIS MANAGER us Eddie Quijano MD CHEMISTRY ORDERABLES Final Resul t INTERFACE SYSTEM Refer to clinic/hospital department [facility] CLIA# [id number] [address] [place] [address] * (ABNORMAL) CBC WITH DIFFERENTIAL (10/07/2008 5:48 PM ANALYSIS MANAGER) EOSINOPHIL ABSOLUTE 0.2 0.0 - 0.7 K/ul [facility] RBC 5.67 4.60 - 6.20 Mil/ul [facility] LYMPHOCYTES 17.6(L) 24.0 - 44.0 % [facility] MCHC 34.5 30.0 - 35.0 g/dL [facility] LYMPHOCYTE ABSOLUTE 1.5 1.2 - 4.0 K/ul [facility] MCV 88.4 84.0 - 103.0 Fl [facility] MPV 9.5 8.9 - 12.8 Fl [facility] BASOPHILS ABSOLUTE 0.0 0.0 - 0.2 K/ul [facility] BASOPHILS 0.5 0.0 - 1.0 % [facility] HEMOGLOBIN 17.3 14.0 - 18.0 g/dL [facility] RDW 13.2 11.0 - 14.5 % [facility] MONOCYTE ABSOLUTE 0.7(H) 0.1 - 0.6 K/ul [facility] MONOCYTES 8.6 2.0 - 10.0 % [facility] WBC 8.6 4.8 - 10.8 K/ul [facility] MCH 30.5 27.0 - 34.0 pg [facility] NEUTROPHIL ABSOLUTE 6.1 2.0 - 8.0 K/ul [facility] NEUTROPHILS 70.6 42.2 - 75.2 % [facility] HEMATOCRIT 50.1 41.0 - 53.0 % [facility] EOSINOPHILS 2.7 0.0 - 7.0 % [facility] PLATELETS 303 140 - 440 K/ul [facility] Blood specimen (specimen) 10/07/2008 5:48 PM ANALYSIS MANAGER 10/07/2008 6:16 PM ANALYSIS MANAGER us Eddie Quijano MD HEMATOLOGY ORDERABLES Final Resu lt Performing Organization Address [facility] Phone Number INTERFACE SYSTEM Refer to clinic/hospital department [facility] CLIA# [id number] [address] [place] [place] [address] * PTT (10/07/2008 5:48 PM ANALYSIS MANAGER) PTT 26.0 22.5 - 36.5 Secs [facility] Comment: Therapeutic Range: Hi-level PE/DVT heparin protocol 80.1 -95.0 sec Lo-level PE/DVT heparin protocol 67.1 - 80.0 sec Cardiac Heparin Protocol 67.1 - 85.0 sec Neuro Heparin Protocol 67.1 - 80.0 sec As of 12/22/2007 note change in APTT Normal Range. Blood specimen (specimen) 10/07/2008 5:48 PM ANALYSIS MANAGER 10/07/2008 6:16 PM ANALYSIS MANAGER us Eddie Quijano MD HEMATOLOGY ORDERABLES Final Resu lt Performing Organization Address [facility] de Phone Number INTERFACE SYSTEM Refer to clinic/hospital department [facility] CLIA# [id number] [address] [place] [place] [address] * PROTIME-INR (10/07/2008 5:48 PM ANALYSIS MANAGER) INR 0.9 [facility] Comment: Expected Values for INR: DVT/PE Goal INR 2.5; range 2.0 - 3.0 Valve Replacement Tissue Goal INR 2.5; range 2.0 - 3.0 Mechanical Goal INR 3.0; range 2.5 - 3.5 POST-CT Goal INR 2.5; range 2.0 - 3.0 or Goal 3.0; range 2.5 - 3.5 Atrial Fibrillation Goal INR 2.5; range 2.0 - 3.0 Ischemic Stroke Goal INR 2.5; range 2.0 - 3.0 For additional information see Guidelines for Anticoagulation available from the pharmacy Meredith Viramontes D. [phone] PROTIME 13.5 12.8 - 15.8 Secs [facility] Comment:As of 2007 not e change in normal range. Blood specimen (specimen) 10/07/2008 5:48 PM ANALYSIS MANAGER 10/07/2008 6:16 PM ANALYSIS MANAGER us Eddie Quijano MD HEMATOLOGY ORDERABLES Final Resu lt Performing Organization Address [facility] de Phone Number INTERFACE SYSTEM Refer to clinic/hospital department [facility] CLIA# [id number] [address] [place] [address] * CARDIAC ENZYMES (10/07/2008 5:48 PM ANALYSIS MANAGER) CKMB 0.6 0.0 - 5.0 ng/mL [facility] TROPONIN I <0.1 0.0 - 1.3 ng/mL [facility] Blood specimen (specimen) 10/07/2008 5:48 PM ANALYSIS MANAGER 10/07/2008 6:16 PM ANALYSIS MANAGER us Eddie Quijano MD CHEMISTRY ORDERABLES Final Resul t Performing Organization Address [facility] Co de Phone Number INTERFACE SYSTEM Refer to clinic/hospital department [facility] CLIA# [id number] [address] [place] [address] documented in this encounter Visit Diagnoses Not on filedocumented in this encounter Care Teams Broaching Machine Operator Relationship Specialty Start Date End Date Charlie Magana MD [address] [place] [phone] PCP - General Family Practice 12/01/16 documented as of this encounter
--- OUTSIDE RECORDS SUMMARY | 2025-09-03 12:58 | XMS_ITS | Clinical Summary ---
Author Organization [facility] Address [address] [place] [address] Care Team Providers Care Staff Nurse Midwife Name Role Phone Charlie Magana MD Primary Care Provider + [phone] Allergies Active Allergy Reactions Criticality Noted Date Comments Ampicillin Rash High 10/17/2008 Beta-Blockers (Beta-Adrenergic Blocking Agts) Other (See Comments) 11/21/2014 Fatigue and weakness Medications azelastine (ASTELIN) 137 mcg/actuation nasal spray Administer 2 Sprays in each nostril 2 times daily. Active FLUoxetine (PROzac) 10 mg tablet Take 10 mg by mouth daily. Active aspirin (ECOTRIN EC) 81 mg Tablet, Delayed Release (E.C.) Take 81 mg by mouth daily. Active nitroglycerin (NITROSTAT) 0.4 mg Tablet, Sublingual Place 1 Tablet (0.4 mg) under tongue every 5 minutes as needed for Chest Pain. 25 Tablet 3 8 Active vit C/E/Zn/coppr/real tein/zeaxan (PRESERVISION AREDS-2 ORAL) Take by mouth 2 times daily. Active sildenafil, antihypertensiv e, (REVATIO) 20 mg Tablet Take 1-5 Tablets (20-100 mg) by mouth 1 time daily as needed for Other (See Comment) (ED). 30 Tablet 11 9 Active diltiaZEM (CARDIZEM CD) 240 mg Controlled Delivery 24 hour capsule TAKE 1 CAPSULE BY MOUTH DAILY 90 Capsule 3 10/21/202 0 Active clopidogreL (PLAVIX) 75 mg Tablet TAKE 1 TABLET BY MOUTH DAILY 90 Tablet 3 0 Active HYDROCHLOROTHIA ZIDE 25 mg tablet TAKE 1 TABLET BY MOUTH EVERY DAY 90 Tablet 3 0 Active ezetimibe (ZETIA) 10 mg tablet TAKE 1 TABLET BY MOUTH DAILY 90 Tablet 3 1 Active pantoprazole (PROTONIX) 40 mg Tablet, Delayed Release (E.C.) TAKE 1 TABLET BY MOUTH EVERY DAY 90 Tablet 3 1 Active losartan (COZAAR) 50 mg tablet Take 1 Tablet (50 mg) by mouth daily. 90 Tablet 3 1 Active niacin (NIASPAN ER) 1,000 mg Extended Release 24 hour tablet TAKE 2 TABLETS BY MOUTH AT BEDTIME 60 Tablet 2 1 Active rosuvastatin (CRESTOR) 40 mg tablet Take 1 Tablet (40 mg) by mouth daily at bedtime. 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 06/19/2015 Age-related macular degeneration, dry, both eyes 08/09/2014 Nuclear sclerotic cataract of both eyes, early 1 10/09/2013 Lumbar radiculopathy 02/24/2013 Substernal chest pain 07/13/2012 Other and unspecified hyperlipidemia 12/12/2008 Overview (12/18/2011): July 2009 - total cholesterol 116 HDL 30 and LDL 65, triglycerides of 106 December 2009 - total cholesterol 163, HDL 36, triglycerides of 110, LDL 105 February 2010 - total cholesterol 127, HDL 41, LDL 70 and [id number] October 2010 - total cholesterol 149, HDL 36, LDL 99 and triglycerides 72 12/2011 - total cholesterol 114, HDL 29, LDL 67 and triglycerides 90, AST 21, ALT 21 GERD (gastroesophageal reflux disease) 9 CAD (coronary artery disease) 10/17/2008 Overview (07/19/2012): August 2008 - Coronary angiography for evaluation [...] previous study is available for direct comparison. 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 Gender Identity Not on file Sexual Orientation Not on file Last Filed Vital Signs Vital Sign Reading Time Taken Comments Blood Pressure 140/62 04/15/2020 2:11 PM CDT Pulse 70 04/15/2020 2:11 PM CDT Temperature 36.9 C (98.4 F) 03/20/2013 10:43 AM CDT Respiratory Rate 16 03/20/2013 10:43 AM CDT Oxygen Saturation 97% 03/20/2013 10:43 AM CDT Inhaled Oxygen Concentration - - Weight 81.6 kg (180 lb) 04/15/2020 2:11 PM CDT Height 175.3 cm (5' 9 ) 04/15/2020 2:11 PM CDT Body Mass Index 26.58 04/15/2020 2:11 PM CDT Plan of Treatment Health Maintenance Due Date Last Done Comments [...] PCV) 10/02/2009 10/02/2008 INFLUENZA VACCINE (#1) 2025 5, 10/02/2008, 10/17/2004 Insurance [facility] Advance Directives For more information, please contact: [phone] * Full Code (Latest Code Status on File) Date Activated Date Inactivated Comments 10/18/2008 3:50 PM 10/20/2008 9:32 PM Care Teams Staff Nurse Midwife Relationship Specialty Start Date End Date Charlie Magana MD [address] [place] [address] PCP - General Family Practice 12/01/16
--- OUTSIDE RECORDS SUMMARY | 2025-09-03 12:58 | XMS_ITS | Encounter Summary ---
Author Organization [facility] Address [address] [place] [address] Care Team Providers Care Director Marketing Communications Name Role Phone Charlie Magana MD Primary Care Provider + [phone] Encounter Details Date Type Department Care Team (Late st Contact Info) Description 11/12/2010 Ancillary Orders [facility] [address] [place] [phone] Jenniffer Mensah, [facility] [address] [facility] [address] [place] [address] CAD (coronary artery disease) Social History Tobacco Use Types Packs/Day Years Used Date Smoking Tobacco: Every Day Cigarettes Smokeless Tobacco: Current Chew Alcohol Use Standard Drinks/Week Comments No 0 (1 standard drink = 0.6 oz pur e alcohol) Sex and Gender Information Value Date Recorded Sex Assigned at Not on file Legal Sex Male 4:31 AM DISTANCE EDUCATION TEACHER Gender Identity Not on file Sexual Orientation Not on file documented as of this encounter Plan of Treatment Not on file documented as of this encounter Procedures Procedure Name Priority Date/Time Associated Diagnosis Comments ECHO PRE TEST Routine 11/12/2010 11:32 AM DISTANCE EDUCATION TEACHER CAD (coronary artery disease) documented in this encounter Results * ECHO PRE TEST (11/12/2010 11:32 AM DISTANCE EDUCATION TEACHER) Narrative [facility] - 04/05/2013 11:30 AM CDT Final status, expect no report. Procedure Note Sgf Robert Donald, Radiologist, - 04/05/2013 Final status, expect no report. us Jenniffer Mensah LOCKS INSPECTOR US ORDERABLES Final Result [facility] documented in this encounter Visit Diagnoses Diagnosis CAD (coronary artery disease) Coronary atherosclerosis of unspecified type of vessel, levelock or graft documented in this encounter Care Teams Director Marketing Communications Relationship Specialty Start Date End Date Charlie Magana MD [address] [place] [phone] PCP - General Family Practice 12/01/16 documented as of this encounter
--- OUTSIDE RECORDS SUMMARY | 2025-09-03 12:58 | XMS_ITS | Encounter Summary ---
Author Organization [facility] Address [address] [place] [address] Care Team Providers Care Microbiology Technologist Name Role Phone Charlie Magana MD Primary Care Provider + [phone] Encounter Details Date Type Department Care Team (Late st Contact Info) Description 08/03/2008 Inpatient Historical HIS IN BED Jules Mensah MD [address] [place] [address] [address] [place] [phone] Unspecified Chest Pain; Intermediate Coronary Syndrome (CMS/HCC); Unspecified Essential Hypertension; Other and Unspecified Hyperlipidemia; Family History of Ischemic Heart Disease; Family History of Stroke (Cerebrovascular) Social History Tobacco Use Types Packs/Day Years Used Date Smoking Tobacco: Never Assessed Sex and Gender Information Value Date Recorded Sex Assigned at Not on file 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 Gender Identity Not on file Sexual Orientation Not on file documented as of this encounter Plan of Treatment Not on file documented as of this encounter Procedures Procedure Name Priority Date/Time Associated Diagnosis Comments POC ACTIVATED CLOTTING TIME Routine 08/04/2008 3:25 PM CDT POC ACTIVATED CLOTTING TIME Routine 08/04/2008 1:45 PM CDT POC ACTIVATED CLOTTING TIME Routine 08/04/2008 12:49 PM CDT MRSA CULTURE Routine 08/04/2008 11:27 AM CDT PT AND APTT Routine 08/04/2008 7:33 AM CDT CARDIAC ENZYMES Routine 08/04/2008 7:33 AM CDT CBC WITH DIFFERENTIAL Routine 08/04/2008 7:33 AM CDT BASIC METABOLIC PANEL Routine 08/04/2008 7:33 AM CDT CARDIAC ENZYMES Routine 08/04/2008 1:11 AM CDT CARDIAC ENZYMES Routine 08/03/2008 7:18 PM CDT documented in this encounter Results * POC ACTIVATED CLOTTING TIME (08/04/2008 3:25 PM CDT) [facility] POC 143 79 - 149 sec [facility] Blood specimen (specimen) 08/04/2008 3:25 PM CDT 08/05/2008 3:48 PM IRRIGATOR VALVE PIPE Jules Mensah MD POINT OF CARE TESTING Final Re sult Performing Organization Address [facility] de Phone Number INTERFACE SYSTEM Refer to clinic/hospital department [facility] CLIA# [id number] [address] [place] [address] * (ABNORMAL) POC ACTIVATED CLOTTING TIME (08/04/2008 1:45 PM CDT) [facility] ACT POC 170(H) 79 - 149 sec [facility] Blood specimen (specimen) 08/04/2008 1:45 PM CDT 08/05/2008 3:48 PM IRRIGATOR VALVE PIPE Jules Mensah MD POINT OF CARE TESTING Final Re sult Performing Organization Address [facility] de Phone Number INTERFACE SYSTEM Refer to clinic/hospital department [facility] CLIA# [id number] [address] [place] [address] * (ABNORMAL) POC ACTIVATED CLOTTING TIME (08/04/2008 12:49 PM CDT) ACT POC 179(H) 79 - 149 sec [facility] Blood specimen (specimen) 08/04/2008 12:49 PM CDT 08/05/2008 3:48 PM IRRIGATOR VALVE PIPE Jules Mensah MD POINT OF CARE TESTING Final Re sult Performing Organization Address [facility] de Phone Number INTERFACE SYSTEM Refer to clinic/hospital department [facility] CLIA# [id number] [address] [place] [address] * MRSA CULTURE (08/04/2008 11:27 AM CDT) FINAL REPORT Culture screen for MRSA negative INTERFACE SYSTEM ANTERIOR NARES SWAB / Unknown 08/04/2008 11:27 AM CDT 08/04/2008 2:11 PM CDT Jules Mensah MD MICROBIOLOGY - GENERAL ORDERAB LES Final Result Performing Organization Address [facility] Phone Number INTERFACE SYSTEM Refer to clinic/hospital department * PT AND APTT (08/04/2008 7:33 AM CDT) INR 1.0 [facility] Comment: Expected Values for INR: DVT/PE Goal INR 2.5; range 2.0 - 3.0 Valve Replacement Tissue Goal INR 2.5; range 2.0 - 3.0 Mechanical Goal INR 3.0; range 2.5 - 3.5 POST-OK Goal INR 2.5; range 2.0 - 3.0 or Goal 3.0; range 2.5 - 3.5 Atrial Fibrillation Goal INR 2.5; range 2.0 - 3.0 Ischemic Stroke Goal INR 2.5; range 2.0 - 3.0 For additional information see Guidelines for Anticoagulation available from the pharmacy [facility] [phone] PTT 34.6 22.5 - 36.5 Secs [facility] Comment: Therapeutic Range: Hi-level PE/DVT heparin protocol 80.1 -95.0 sec Lo-level PE/DVT heparin protocol 67.1 - 80.0 sec Cardiac Heparin Protocol 67.1 - 85.0 sec Neuro Heparin Protocol 67.1 - 80.0 sec As of 12/22/2007 note change in APTT Normal Range. PROTIME 14.8 12.8 - 15.8 Secs [facility] Comment:As of 2007 not e change in normal range. Blood specimen (specimen) 08/04/2008 7:33 AM CDT 08/04/2008 7:48 AM CDT Jules Mensah MD HEMATOLOGY ORDERABLES Edited Performing Organization Address [facility] de Phone Number INTERFACE SYSTEM Refer to clinic/hospital department [facility] CLIA# [id number] [address] [place] [address] * BASIC METABOLIC PANEL (08/04/2008 7:33 AM CDT) BUN 17 9 - 20 mg/dL [facility] CO2 27 22 - 32 mmol/l [facility] OSMOLALITY, CALCULATED 288 275 - 295 mOsm/Kg [facility] POTASSIUM 4.2 3.5 - 5.0 mEq/L [facility] CREATININE 1.0 0.7 - 1.5 mg/dL [facility] CALCIUM 9.8 8.4 - 10.5 mg/dL [facility] GLUCOSE 102 70 - 110 mg/dL [facility] CHLORIDE 106 95 - 110 mEq/L [facility] SODIUM 139 136 - 145 mEq/L [facility] ANION GAP 10 9 - 20 mEq/L [facility] Blood specimen (specimen) 08/04/2008 7:33 AM CDT 08/04/2008 7:48 AM CDT Jules Mensah MD CHEMISTRY ORDERABLES Final Res ult INTERFACE SYSTEM Refer to clinic/hospital department [facility] CLIA# [id number] [place] [address] * (ABNORMAL) CBC WITH DIFFERENTIAL (08/04/2008 7:33 AM CDT) MCV 88.8 84.0 - 103.0 Fl [facility] BASOPHILS 0.5 0.0 - 1.0 % [facility] MPV 9.2 8.9 - 12.8 Fl [facility] BASOPHILS ABSOLUTE 0.0 0.0 - 0.2 K/ul [facility] HEMOGLOBIN 15.7 14.0 - 18.0 g/dL [facility] MONOCYTES 11.5(H) 2.0 - 10.0 % [facility] RDW 13.5 11.0 - 14.5 % [facility] MONOCYTE ABSOLUTE 0.9(H) 0.1 - 0.6 K/ul [facility] WBC 7.5 4.8 - 10.8 K/ul [facility] NEUTROPHILS 64.2 42.2 - 75.2 % [facility] MCH 30.8 27.0 - 34.0 pg [facility] NEUTROPHIL ABSOLUTE 4.8 2.0 - 8.0 K/ul [facility] HEMATOCRIT 45.3 41.0 - 53.0 % [facility] PLATELETS 253 140 - 440 K/ul [facility] EOSINOPHIL ABSOLUTE 0.4 0.0 - 0.7 K/ul [facility] EOSINOPHILS 4.7 0.0 - 7.0 % [facility] RBC 5.10 4.60 - 6.20 Mil/ul [facility] MCHC 34.7 30.0 - 35.0 g/dL [facility] LYMPHOCYTE ABSOLUTE 1.4 1.2 - 4.0 K/ul [facility] LYMPHOCYTES 19.1(L) 24.0 - 44.0 % [facility] Blood specimen (specimen) 08/04/2008 7:33 AM CDT 08/04/2008 7:48 AM CDT Jules Mensah MD HEMATOLOGY ORDERABLES Final Re sult Performing Organization Address [facility] de Phone Number INTERFACE SYSTEM Refer to clinic/hospital department [facility] CLIA# [id number] [address] [place] [address] * CARDIAC ENZYMES (08/04/2008 7:33 AM CDT) TROPONIN I <0.1 0.0 - 1.3 ng/mL [facility] CKMB 0.7 0.0 - 5.0 ng/mL [facility] Blood specimen (specimen) 08/04/2008 7:33 AM CDT 08/04/2008 7:48 AM CDT Jules Mensah MD CHEMISTRY ORDERABLES Final Res ult Performing Organization Address [facility] de Phone Number INTERFACE SYSTEM Refer to clinic/hospital department [facility] CLIA# [id number] [address] [place] [address] * CARDIAC ENZYMES (08/04/2008 1:11 AM CDT) TROPONIN I <0.1 0.0 - 1.3 ng/mL [facility] CKMB 0.5 0.0 - 5.0 ng/mL [facility] Blood specimen (specimen) 08/04/2008 1:11 AM CDT 08/04/2008 1:55 AM CDT Jules Mensah MD CHEMISTRY ORDERABLES Final Res ult Performing Organization Address [facility] de Phone Number INTERFACE SYSTEM Refer to clinic/hospital department [facility] CLIA# [id number] [address] [place] [address] * CARDIAC ENZYMES (08/03/2008 7:18 PM CDT) TROPONIN I <0.1 0.0 - 1.3 ng/mL [facility] CKMB 0.7 0.0 - 5.0 ng/mL [facility] Blood specimen (specimen) 08/03/2008 7:18 PM CDT 08/03/2008 7:18 PM CDT us Jules Mensah MD CHEMISTRY ORDERABLES Final Res ult INTERFACE SYSTEM Refer to clinic/hospital department [facility] CLIA# [id number] [address] [place] [address] documented in this encounter Visit Diagnoses Diagnosis Chest pain, unspecified Intermediate coronary syndrome (CMS/HCC) Intermediate coronary syndrome Unspecified essential hypertension Other and unspecified hyperlipidemia Family history of ischemic heart disease Family history of stroke (cerebrovascular) documented in this encounter Care Teams Microbiology Technologist Relationship Specialty Start Date End Date Charlie Magana MD [address] [place] [id number] PCP - General Family Practice 12/01/16 documented as of this encounter
--- OUTSIDE RECORDS SUMMARY | 2025-09-03 12:58 | XMS_ITS | Encounter Summary ---
Author Organization [facility] Address [address] [place] [address] Care Team Providers Care Supervisor Pressing Department Name Role Phone Charlie Magana MD Primary Care Provider + [phone] Encounter Details Date Type Department Care Team (Late st Contact Info) Description 04/24/2005 Outpatient Historical [facility] Card[facility] [address] [place] [address] Martin Moran MD [address] [place] [address] CHEST PAIN NOS (Primary Dx) Social History Tobacco Use Types Packs/Day Years Used Date Smoking Tobacco: Never Assessed Sex and Gender Information Value Date Recorded Sex Assigned at Not on file 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
[2025-09-03 13:21] LABS: Glucose Urine UA Negative (Normal); Nitrate Urine Negative (Negative); Specific Gravity, Urine 1.012 (1.005-1.030)
--- NOTE | 2025-09-03 13:22 | ED_ITS ---
HPI - Abdominal Pain 2 General: Chief Complaint: Abdominal Pain Stated Complaint: nausea pain in back left side Time Seen by Provider: 09/03/25 13:09 History of Present Illness: 69-year-old male presents emergency room complaining of left flank pain posterior lower ribs.'s worse with palpation states it is better if he twists or stretches the area denies dysuria urgency or frequency no fever sweats or chills he had been constipated and had taken something for that 6 had loose stools for last couple days denies hematochezia melena hematemesis or coffee-ground emesis. He has been very nauseous but not had any vomiting no chest pain. He has no history of nephrolithiasis. Associated Symptoms: Denies chills, dysuria and fever(s) Related Data Home Medications ?Medication ?Instructions ?Recorded ?Confirmed clopidogrel 75 mg tablet 75 mg PO DAILY 02/25/2310/28 diltiazem HCl 240 mg 240 mg PO DAILY 02/25/2310/28 capsule,extended release 24 hr hydrochlorothiazide 25 mg tablet 25 mg PO DAILY 09/03/25 rosuvastatin 40 mg tablet 40 mg PO BEDTIME 02/25/23 evolocumab 140 mg/mL subcutaneous 140 mg SUBCUT .Q2W 0 11/22/23 09/03/25 pen injector (Wilman Almodovar) nitroglycerin 0.4 mg sublingual See Rx Instructions .R oute .COMPLEX 09/03/25 09/03/25 tablet spironolactone 25 mg tablet 12.5 mg PO DAILY 09/03/25 09/03/25 (Aldactone) Previous Rx's ?Medication ?Instructions ?Recorded losartan 100 mg tablet 100 mg PO DAILY #30 tabs pantoprazole 40 mg tablet,delayed 40 mg PO DAILY #90 t abs 05/10/25 release diclofenac sodium 75 mg 75 mg PO Q12H PRN pain #20 t abs 09/03/25 tablet,delayed release tizanidine 4 mg tablet 4 mg PO Q6H PRN muscle spast icity 09/03/25 #20 tabs Allergies Allergy/AdvReac Type Severity Reaction Status Date / Time Penicillins Allergy Unknown unknown Verified 09/03/25 12:54 Review of Systems 2 Const: Denies: fever(s) or chills Card: Denies: chest pain Resp: Denies: dyspnea GI: Denies: abdominal pain : Denies: dysuria, urinary frequency or urinary urgency Musc: Denies: neck pain or back pain Skin/Breast: Denies: rash PFSH ED 2 PFSH: Medical History Coronary artery disease Diabetes mellitus Hypertension High cholesterol Surgical History History of heart artery stent Family History Other Cancer Diabetes Social History Smoking and tobacco/nicotine status: never used tobacco/nicotine Alcohol intake: never Household members: spouse Marital status: Current occupational status: employed Current occupation: [employer] Physical Exam 2 Const: COMMON NORMALS: no acute distress GENERAL APPEARANCE: cooperative and comfortable ORIENTATION/CONSCIOUSNESS: Yes awake, Yes oriented to person, Yes oriented to place and Yes oriented to time HENMT: COMMON NORMALS: normocephalic, atraumatic and hearing grossly normal bilaterally HEAD & SCALP: normocephalic and atraumatic Resp: COMMON NORMALS: normal respiratory effort, No retractions, No use of accessory muscles and clear to auscultation bilaterally AUSCULTATION: clear to auscultation bilaterally Cardio: COMMON NORMALS: regular rate, regular rhythm and No murmurs present (Cardio) RATE: regular rate RHYTHM: regular rhythm GI: COMMON NORMALS: Soft to palpation and No hepatosplenomegaly present A USCULTATION: Yes normoactive bowel sounds PALPATION: Yes Soft to palpation, No Tenderness to palpation present (GI), No Guarding due to palpation present (GI) and Yes No hepatosplenomegaly present Extremity: COMMON NORMALS: normal to inspection, capillary refill normal, no clubbing, cyanosis or edema, no calf tenderness and no pedal edema Neuro: SENSORIUM/ORIENTATION: Yes oriented to person, Yes oriented to place and Yes oriented to time Skin: COMMON NORMALS: no rashes or lesions noted GENERAL SKIN EXAM: no rashes or lesions noted Course 2 Vital Signs: Vital signs: Vital Signs Temperature 97.9 F 09/03/25 12:50 Pulse Rate 77 09/03/25 14:32 Blood Pressure 141/85 09/03/25 14:32 Pulse Oximetry 96 09/03/25 14:32 Oxygen Delivery Me thod Room Air 09/03/25 12:50 MDM - Abdominal Pain Medical Decision Making Medical decision making Social determinants: None I reviewed the patient's medical record. I reviewed the patient's current home meds Alternate historians: None Differential diagnosis pyelonephritis musculoskeletal back pain varicella- zoster Lab Review: On the chart no leukocytosis slight elevation in liver functions T. bili and alk phos normal rest of chemistries normal UA unremarkable Imaging: None Assessment of risk: Level of risk: Low Hospitalization considerations: No consideration for hospitalization Reexamination: Repeat exam mild improvement after Toradol Assessment and plan: On exam patient has reproducible pain with palpation along the posterior lower ribs. It is also reproducible with some movement. More musculoskeletal in nature. Discharge patient home with anti-inflammatories follow-up with primary care Medical Records I reviewed the patient's medical records. Lab Data I reviewed the patient's lab results. 09/03/25 13:21 09/03/25 13:21 Labs/Radiology: Laboratory Results WBC 10.80 10^3/uL (3.29-11.43) 09/03/25 13:21 RBC 5.27 10^6/uL (3.85-5.65) 09/03/25 13:21 Hgb 14.90 g/dL (11.27-16.99) 09/03/25 13:21 Hct 44.8 % (37-53) 09/03/25 13:21 MCV 85.0 fl (82-101) 09/03/25 13:21 MCH 28.3 pg (27-33) 09/03/25 13:21 MCHC 33.3 g/dL (30-55) 09/03/25 13:21 RDW 15.9 % (12.1-15.1) H 09/03/25 13:21 Plt Count 346 10^3/cmm (157-399) 09/03/25 13:21 MPV 8.8 fL (7.4-10.4) 09/03/25 13:21 Neut % (Auto) 75.0 % 09/03/25 13:21 Lymph % (Auto) 11.0 % 09/03/25 13:21 Glascock % (Auto) 10.3 % 09/03/25 13:21 Eos % (Auto) 2.6 % 09/03/25 13:21 Baso % (Auto) 0.6 % 09/03/25 13:21 Neut # (Auto) 8.10 10^3/uL (1.8-7.7) H 09/03/25 13:21 Lymph # (Auto) 1.2 10^3/uL (0.8-4.8) 09/03/25 13:21 Glascock # (Auto) 1.1 10^3/uL (0.2-0.9) H 09/03/25 13:21 Eos # (Auto) 0.3 10^3/uL (0.0-0.8) 09/03/25 13:21 Baso # (Auto) 0.1 10^3/uL (0.0-0.1) 09/03/25 13:21 Nucleated RBC % (auto) 0 % 09/03/25 13:21 Nucleated RBCs # 0.0 /100WBC 09/03/25 13:21 Sodium 135 mmol/L (136-145) L 09/03/25 13:21 Potassium 4.0 mmol/L (3.5-5.1) 09/03/25 13:21 Chloride 99 mmol/L (98-107) 09/03/25 13:21 Carbon Dioxide 25 mmol/L (22-29) 09/03/25 13:21 Anion Gap 15.0 (5-19) 09/03/25 13:21 BUN 15 mg/dL (8-23) 09/03/25 13:21 Creatinine 1.1 mg/dL (0.7-1.2) 09/03/25 13:21 GFR Calculation 66.4 mL/min (90-130) L 09/03/25 13:21 Glucose 103 mg/dL (65-115) 09/03/25 13:21 Calculated Osmolality 281 mOsm/kg (285-295) L 09/03/25 13:21 Calcium 9.3 mg/dL (8.5-10.5) 09/03/25 13:21 Total Bilirubin 0.7 mg/dL (0.15-1.2) 09/03/25 13:21 AST 44 U/L (0-40) H 09/03/25 13:21 ALT 45 U/L (0-41) H 09/03/25 13:21 Alkaline Phosphatase 116 U/L (40-130) 09/03/25 13:21 Total Protein 8.1 g/dL (6.6-8.7) 09/03/25 13:21 Albumin 4.7 g/dL (3.5-5.2) 09/03/25 13:21 Globulin 3.4 g/dL (1.3-4.6) 09/03/25 13:21 Lipase 30 U/L (13-60) 09/03/25 13:21 Urine Color Yellow (Yellow) 09/03/25 13:02 Urine Appearance Clear (CLEAR) 09/03/25 13:02 Urine pH 8.0 (5-7) A 09/03/25 13:02 Ur Specific Wilmore 1.012 (1.005-1.030) 09/03/25 13:02 Urine Protein Trace (Negative) A 09/03/25 13:02 Urine Glucose (UA) Negative (Normal) 09/03/25 13:02 Urine Ketones Negative (Negative) 09/03/25 13:02 Urine Blood Negative (Negative) 09/03/25 13:02 Urine Nitrate Negative (Negative) 09/03/25 13:02 Urine Bilirubin Negative (Negative) 09/03/25 13:02 Urine Urobilinogen 1.0 mg/dL (Negative) 09/03/25 13:02 Ur Leukocyte Esterase Trace (Negative) A 09/03/25 13:02 Urine RBC 0-2 /hpf (0-2) 09/03/25 13:02 Urine WBC 0-5 /hpf (0-5) 09/03/25 13:02 Ur Squamous Epith Cells 0-5 /hpf (0-5) 09/03/25 13:02 Amorphous Sediment Not Reportable 09/03/25 13:02 Urine Bacteria None seen /hpf (NONE) 09/03/25 13:02 Hyaline Casts 0-4 /lpf H 09/03/25 13:02 No radiology studies performed this visit Discharge Plan Discharge Patient Disposition: Home Clinical Impression: Back pain Condition: Stable Prescriptions: New diclofenac sodium 75 mg tablet,delayed release (DR/EC) 75 mg PO Q12H PRN (Reason: pain) Qty: 20 0RF tizanidine 4 mg tablet 4 mg PO Q6H PRN (Reason: muscle spasticity) Qty: 20 0RF Rx Instructions: do not exceed 3 doses per 24 hrs No Action clopidogrel 75 mg tablet 75 mg PO DAILY diltiazem HCl 240 mg capsule,extended release 24hr 240 mg PO DAILY hydrochlorothiazide 25 mg tablet 25 mg PO DAILY rosuvastatin 40 mg tablet 40 mg PO BEDTIME losartan 100 mg tablet 100 mg PO DAILY Qty: 30 11RF Repatha SureClick 140 mg/mL pen injector 140 mg SUBCUT .Q2W pantoprazole 40 mg tablet,delayed release (DR/EC) 40 mg PO DAILY Qty: 90 3RF nitroglycerin 0.4 mg tablet, sublingual See Rx Instructions .ROUTE .COMPLEX Rx Instructions: DISSOLVE ONE TABLET UNDER THE TONGUE EVERY 5 MINUTES NEEDED FOR CHEST PAIN. DO NOT EXCEED A TOTAL OF 3 DOSES IN 15 MINUTES spironolactone [Aldactone] 25 mg Tablet 12.5 mg PO DAILY Discharge Orders: Discharge ED (Routine); Ordered 09/03/25 Ordered By: Dallin Salmon Referrals: Charlie Magana MD [Primary Care Provider, Family Practice] Discharge Diet: Usual diet Discharge Activity: Resume usual activity Patient Instructions: Abdominal Pain (ED), Opioid Safety, Pain Management, Patient Portal & Hai Instructions Activity Restrictions/Additional Instructions: Thank you for choosing [facility] for your healthcare needs today. It is very important that you follow up as instructed or that you return to the Emergency Department should you have concerns or if your condition changes or worsens in any way. Emergency department visits are focused on emergent conditions, in some cases you may require further evaluation on an outpatient basis. You are seen in the emergency room for back and flank pain. Your white count was normal your chemistries did not show significant abnormality. Your exam showed reproducible pain with palpation at the lower portion of your ribs. Urine did not show any signs nephrolithiasis. Will discharge you home with anti-inflammatories to use for muscle pain and have you follow-up with your primary care doctor (Please note that included in your discharge packet is information concerning opioid safety and pain management. This information is given to all patients were discharged from the ER regardless of their discharge diagnosis or the medicines they usually take or are prescribed.) Print Language: German Coding Level of Care Code ED Acid Blower for Radames Campuzano
[2025-09-03 13:27] LABS: Add Urine Microscopic? YES
[2025-09-03 13:29] LABS: Hematocrit 44.8 % (37-53); Hemoglobin 14.90 g/dL (11.27-16.99); Mean Corpuscular HGB Conc 33.3 g/dL (30-55); Mean Corpuscular Hemoglobin 28.3 pg (27-33); Mean Corpuscular Volume 85.0 fl (82-101); Nucleated Red Blood Cells % 0 %; Platelet Count 346 10^3/cmm (157-399); Red Blood Count 5.27 10^6/uL (3.85-5.65); White Blood Count 10.80 10^3/uL (3.29-11.43)
[2025-09-03 13:49] LABS: Alanine Aminotransferase 45 U/L (0-41); Albumin Level 4.7 g/dL (3.5-5.2); Alkaline Phosphatase 116 U/L (40-130); Anion Gap 15.0 (5-19); Aspartate Amino Transferase 44 U/L (0-40); Blood Urea Nitrogen 15 mg/dL (8-23); Calcium 9.3 mg/dL (8.5-10.5); Carbon Dioxide 25 mmol/L (22-29); Chloride 99 mmol/L (98-107); Creatinine Clr Calc Pharmacy 64.8657; Globulin 3.4 g/dL (1.3-4.6); Glucose 103 mg/dL (65-115); Lipase 30 U/L (13-60); Osmolality Calculated 281 mOsm/kg (285-295); Potassium 4.0 mmol/L (3.5-5.1); Sodium 135 mmol/L (136-145); Total Protein 8.1 g/dL (6.6-8.7)
[2025-09-03 14:32] VITALS: BP 141/85; PULSE 77; O2SAT 96
== END 2025-09-03 14:35 | disposition home or self-care (01) ==
PROVIDERS: Emergency Provider Family Medicine; PCP Family Medicine
DX: M54.9 Dorsalgia, unspecified (principal); Z79.02 Long term (current) use of antithrombotics/antiplatelets; I25.10 Atherosclerotic heart disease of native coronary artery without angina pectoris; E11.9 Type 2 diabetes mellitus without complications; I10 Essential (primary) hypertension
CPT/HCPCS: 36415; 80053; 81001; 83690; 85025; 96374; 99284; J1885

== ENCOUNTER 2025-09-08 10:24 | Emergency (ER) | payer MEDICARE, SELFPAY ==
--- OUTSIDE RECORDS SUMMARY | 2025-09-04 09:50 | XMS_ITS | Encounter Summary ---
Author Organization [facility] Address [address] [place] [address] Care Team Providers Care Reconciliation Coordinator Name Role Phone Charlie Magana MD Primary Care Provider + [phone] Reason for Visit * Reason Comments Follow Up Encounter Details Date Type Department Care Team (Latest Contact Info) Description 09/04/2025 9:50 AM STORE LEADER Office Visit [facility] [place] [address] [place] [phone] Leslie Coleman MD [address] [place] [address] Exudative age-related macular degeneration of both eyes with active choroidal neovascularization (CMS/HCC) (Primary Dx) Social History Tobacco Use Types Packs/Day Years Used Date Smoking Tobacco: Never Smokeless Tobacco: Former Quit: 10/04/2015 Alcohol Use Standard Drinks/Week Comments No 0 (1 standard drink = 0.6 oz pur e alcohol) Feeling Safe Answer Date Recorded Are you in a relationship wi th someone who hurts you emotionally and/or physically? No 07/18/2024 Sex and Gender Information Value Date Recorded Sex Assigned at Not on file Legal Sex Male 7:59 AM STORE LEADER Gender Identity Not on file Sexual Orientation Not on file documented as of this encounter Progress Notes * Margo Pritchard RN - 09/04/2025 9:50 AM CST Pritesh Saunders is a 69 y.o. male Chief Complaint Patient presents with Follow Up HPI Pritesh Saunders is a 69 y.o. male returns for a 10 week follow up of Wet AMD OU. Patient states his vision is stable. Pt states negative for flashes, OU. Pt states positive for floaters. OU, intermittent. X years, nothing new. Pt states negative for pain/discomfort, OU. Drops: Pataday PRN OU Systane PRN OU Vitamins: Preservision, PO BID Last edited by Kavin Ordonez on 09/04/2025 9:47 AM. ROS Positive for: Gastrointestinal, Neurological, Cardiovascular, Eyes Negative for: Constitutional, Skin, Genitourinary, Musculoskeletal, HENT, Endocrine, Respiratory, Psychiatric, Allergic/Imm, Heme/Lymph Last edited by Kavin Ordonez on 09/04/2025 9:44 AM. Visual Acuity Right +/- Left +/- Distance sc: 20/30 20/50 cc: ph sc: 20/25 20/40 ph cc: Near sc: cc: IOP Right Left Tonopen 12 13 Procedures and Testing: OCT, Retina - OU - Both Eyes Optical Coherence Tomography ordered to evaluate the status of the macula: RIGHT EYE: Patchy atrophy There is mild intraretinal fluid Progressed intraretinal fluid LEFT EYE: Few cystic changes Patchy atrophy Progressed intraretinal fluid EYE DROPS Medications Eye Drops: 1 Drop proparacaine 0.5 % Route: Topical NDC: 66142-906-76, Lot: [id number], Expiration date: 10/04/2026 Notes Eye drop orders per protocol for Basic Major Appliance Assembly Supervisor Eye Exam (Non-Dilated) Instill proparacaine (OPHTHAINE) 0.5% ophthalmic solution. Amount: 1 drop per eye prior to tonometry If applanation is preferred method of tonometry: Instill fluorescein-benoxinate (FLURATE) 0.3-0.4 % ophthalmic solution 1 drop per eye during applanation EYE DROPS Medications Eye Drops: 2 Drop lidocaine (PF) 3.5 % Route: Topical, Site: Eye, Bilateral NDC: 85110-729-82, Lot: [id number], Expiration date: 07/03/2027 5 Drop povidone-iodine in balanced salt solution 0.25% Route: Topical, Site: Eye, Bilateral NDC: 5558-1448-77-18-001, Lot: [id number], Expiration date: 09/05/2025 5 Drop proparacaine 0.5 % Route: Topical, Site: Eye, Bilateral NDC: 80617-829-68, Lot: [id number], Expiration date: 03/02/2027 5 Drop tetracaine 0.5 % Route: Topical, Site: Eye, Bilateral NDC: 16560-834-16, Lot: [id number], Expiration date: 07/03/2026 Notes Eye drop orders per protocol for Intravitreal Injection Administer the following medications approximately 1 minute apart into the procedural/operative/affected eye 5 drops proparacaine (OPHTHAINE) 0.5% ophthalmic solution 5 drops of tetracaine (PF) 0.5% ophthalmic solution 5 drop of betadine mixture Intravitreal Injection, Pharmacologic Agent - OU - Both Eyes (38300) Time Out 09/04/2025. 11:14 AM. Confirmed correct patient, procedure, site, and patient consented. Procedure Right Eye Injection: 2 mg aflibercept 2 mg/0.05 mL Route: Intravitreal, Site: Eye, Right NDC: 00102-318-54, Lot: [id number], Expiration date: 09/02/2026 Left Eye Injection: 2 mg aflibercept 2 mg/0.05 mL Route: Intravitreal, Site: Eye, Left NDC: 46807-570-12, Lot: [id number], Expiration date: 10/03/2026 Encounter Diagnosis Name Primary? Exudative age-related macular degeneration of both eyes with active choroidal neovascularization (CMS/HCC) Yes Right Eye: History of Eylea right eye: worsening leakage/activity from the patient's condition Left Eye: History of Eylea left eye: worsening leakage/activity from the patient's condition PLAN: Patient counseled on the above findings. Based on today's diagnostic studies, and/or exam, and/or review of records we discussed the need for continued injections as a maintenance therapy to preserve/improve the current level of vision and reduce the risk of further vision loss. The determination was made for treatment today. Proceed with Eylea injection BOTH eyes today. Mr. Saunders understands and agrees with the plan. Tighten to 8 weeks. Symptoms of endophthalmitis reviewed. She understands the importance of continuing to monitor her vision carefully, including the use of an Amsler grid, and to call right away with any changes including worsening vision, distortion, or new areas of scotoma. We have discussed the pros and cons of doing injections in both eyes on the same day, versus on separate days. All questions answered RETURN: Return in about 8 weeks (around 10/30/2025) for OCT OU, DILATE OU. I reviewed the documentation of the patient's history, examination, and encounter visit. I have verified and edited as necessary, the systems technician and/or scribe's documentation of the patient's visit. Today's exam and progress note was completed with the assistance of Margo Pritchard RN, acting as behavioral medical director. LESLIE COLEMAN MD. E LEADER documented in this encounter Miscellaneous Notes * Patient Instructions - Leslie Coleman MD - 09/04/2025 11:16 AM CST Images from the original note were not included. After Your Injection Prepared for: Pritesh Saunders 09/04/2025 Leslie Coleman MD [facility] Please review these instructions carefully. 1. It is normal to have some blurred vision for several hours after the injection. It is also normal to have a deep red area of blood on the white part of your eye. This is due to bleeding from a surface blood vessel, is considered normal, and will improve over the next one to two weeks. 2. Occasionally, there are irregularities of the surface of the eye in the first several hours after an injection. This can cause fairly significant discomfort, and a arabella or foreign body sensation of the eye. When this happens, it usually lasts only a few hours, and gets better on its own overnight. Keep a cool wash cloth on the eyes and try to keep both eyes closed. If the pain persists beyond 24 hours, please call the office. 3. Eyedrops: Use artificial tears as often as you wish, to help soothe the surface of the eye. 4. Infection can rarely occur after an injection, and can be a serious complication. The symptoms may include worsening redness, increasing pain, and decreasing vision. If these symptoms develop in the first few days after the injection, make sure to call our office right away so we can determine if you should be seen. 5. Remember that the injections are intended to stabilize your vision, though many patients do experience some improvement. This can take several weeks, however. 6. If you start to have worsening vision more than a week or so before your next visit, please callour office so we can determine if you should be seen sooner. We encourage you to use your Amsler Grid to monitor your vision, preferably on a daily basis. 7. With the medications we used to treat your eye today, there is a theoretical risk of stroke or other blood vessel complications. In the studies that have been done to date, however, there is no clear increase in this complication in patients receiving this treatment, when compared to the people not receiving the treatment. Although the likelihood of serious complications affecting other organs of my body is low, immediately contact your primary care physician or go to the Emergency Room if you experience abdominal painassociated with constipation and vomiting, abnormal bleeding, chest pain, severe headache, slurred speech, or weakness on one side of the body. As soon as possible, also notify our office. Please remember: Your eyes have been dilated (your pupils have been made large) for today's examination. This dilation will usually last for three to five hours. During that time, you may have some blurring of your vision, and a significant amount of glare. Because of this, we strongly recommend that you do not drive until the dilation of your pupils has resolved. You can expect that one or both of your pupils will be dilated at each of your examinations, and for that reason, we also recommend that you have a bellman driver for each visit. Please remember: Your eyes have been dilated (your pupils have been made large) for today's examination. This dilation will usually last for three to five hours. During that time, you may have some blurring of your vision, and a significant amount of glare. We strongly recommend that you DO NOT DRIVE until the dilation of your pupils has resolved. You can expect that one or both of your pupils will be dilated at each of your examinations, and for that reason, we also recommend that you have a bellman driver for each visit. Thanks, The [facility] Retina Team [facility] Patient Instructions Dilated Retinal Exam: About This Test What is it? A dilated retinal exam is a test that lets your doctor see the inside of the back of your eye. To do this, your doctor uses a magnifying instrument called an ophthalmoscope and a light source. A testdone with an ophthalmoscope is called ophthalmoscopy. Why is this test done? A dilated retinal exam is done to look for eye problems and eye diseases. It also can be used to find other problems, such as head injuries or brain tumors. This exam is usually done as part of a regular eye exam. Other eye tests that may be done include vision testing and testing for glaucoma. What happens during the test? Your doctor will use eyedrops to widen (dilate) your pupils. This makes it easier to see the back of the eye. Your doctor may also use eyedrops to numb the surface of your eyes. It takes about 15 to 20 minutes to fully dilate the pupils. The dilating eyedrops may make your eyes sting and cause a medicine taste in your mouth. When your pupils are dilated, your doctor will shine a bright light into your eyes and examine them. Tell your doctor if you or anyone in your family has glaucoma and if you are allergic to any type of eyedrops. What happens after the test? Your vision will be blurry for several hours. You will probably be able to go home or back to your usual activities right away. But your eyes will be sensitive. Protect them from the sun by wearing sunglasses. Do not drive for several hours after your eyes have been dilated. When should you call for help? Watch closely for changes in your health, and be sure to contact your doctor if you have questions about the test. Follow-up care is a ring part of your treatment and safety. Be sure to make and go to all appointments, and call your doctor if you are having problems. It's also a good idea to keep a list of the medicines you take. Ask your doctor when you can expect to have your test results. Where can you learn more? Go to [email or web address].net in the Health Information search box. Enter A863 in the search box to learn more about Dilated Retinal Exam: About This Test. Last Revised: September 24, 2011 ?? [id number] [employer]. Care instructions adapted under license by [employer]. [employer] disclaims any warranty or liability for your use of this information. This information is not intended to represent the ethical and latter-day beliefs of [facility]. This care instruction is for use with your licensed healthcare professional. If you have questions about a medical condition or this instruction, always ask your healthcare professional. [employer], [facility] disclaims any warranty or liability for your use of this information. If you have any questions, a quick way to get answers is to use Results Scorecard. Please go to [email or web address] and follow the easy instructions to get signed up. Then you can use Results Scorecard to send questions and information directly to your physician and staff. No more worries about missing a return call, because the answer comes right back to you in your [employer] Inbox. You can use [employer]card to ask questions, request refills, make payments and much more. It is also available right from your smartphone or other mobile device, so you can manage your healthcare wherever you are. E LEADER documented in this encounter Plan of Treatment Upcoming Encounters Date Type Department Care Team (Late st Contact Info) Description 10/16/2025 8:30 AM STORE LEADER Procedure visit [facility] [address] [address] [place] [phone] Charlie Gardner AU.D [address] [place] [phone] 10/16/2025 9:00 AM STORE LEADER Office Visit [facility] [address] [place] [phone] Ganesh Mari MD [address] [place] [phone] 10/29/2025 10:40 AM STORE LEADER Procedure visit [facility] Ophthalmology [place] [address] [place] [address] Leslie Coleman MD [address] [place] [address] documented as of this encounter Procedures Procedure Name Priority Date/Time Associated Diagnosis Comments INTRAVITREAL INJECTION, PHARMACOLOGIC AGENT - OU - BOTH EYES Routine 09/04/2025 11:14 AM STORE LEADER Exudative age-related macular degeneration of both eyes with active choroidal neovascularization (CMS/HCC) EYE DROPS Routine 09/04/2025 11:01 AM STORE LEADER Exudative age-related macular degeneration of both eyes with active choroidal neovascularization (CMS/HCC) OCT, RETINA - OU - BOTH EYES Routine 09/04/2025 10:12 AM STORE LEADER Exudative age-related macular degeneration of both eyes with active choroidal neovascularization (CMS/HCC) EYE DROPS Routine 09/04/2025 9:53 AM STORE LEADER Exudative age-related macular degeneration of both eyes with active choroidal neovascularization (CMS/HCC) documented in this encounter Results * INTRAVITREAL INJECTION, PHARMACOLOGIC AGENT - OU - BOTH EYES (09/04/2025 11:14 AM STORE LEADER) Narrative [facility] - 09/04/2025 11:14 AM STORE LEADER Time Out 09/04/2025. 11:14 AM. Confirmed correct patient, procedure, site, and patient consented. Procedure Right Eye Injection: 2 mg aflibercept 2 mg/0.05 mL Route: Intravitreal, Site: Eye, Right ND: 99955-065-70, Lot: [id number], Expiration date: 09/02/2026 Left Eye Injection: 2 mg aflibercept 2 mg/0.05 mL Route: Intravitreal, Site: Eye, Left ND: 86400-188-32, Lot: [id number], Expiration date: 10/03/2026 us Leslie Coleman MD OPH CLINIC PROCEDURES Final R esult [facility] CLIA# [id number] [address] [address] * EYE DROPS (09/04/2025 11:01 AM STORE LEADER) Narrative [facility] - 09/04/2025 11:14 AM STORE LEADER Medications Eye Drops: 2 Drop lidocaine (PF) 3.5 % Route: Topical, Site: Eye, Bilateral NDC: 66163-262-01, Lot: [id number], Expiration date: 07/03/2027 5 Drop povidone-iodine in balanced salt solution 0.25% Route: Topical, Site: Eye, Bilateral NDC: 4616-6993-76-18-001, Lot: [id number], Expiration date: 09/05/2025 5 Drop proparacaine 0.5 % Route: Topical, Site: Eye, Bilateral NDC: 19446-265-56, Lot: [id number], Expiration date: 03/02/2027 5 Drop tetracaine 0.5 % Route: Topical, Site: Eye, Bilateral NDC: 08165-323-21, Lot: [id number], Expiration date: 07/03/2026 Notes Eye drop orders per protocol for Intravitreal Injection Administer the following medications approximately 1 minute apart into the procedural/operative/affected eye 5 drops proparacaine (OPHTHAINE) 0.5% ophthalmic solution 5 drops of tetracaine (PF) 0.5% ophthalmic solution 5 drop of betadine mixture us Leslie Coleman MD [facility] PROCEDURES Final R esult [facility] CLIA# [id number] [address] [place] [address] * OCT, RETINA - OU - BOTH EYES (09/04/2025 10:12 AM STORE LEADER) Narrative [facility] OPHTHALMOLOGY ORDERS - 09/04/2025 11:14 AM STORE LEADER Optical Coherence Tomography ordered to evaluate the status of the macula: RIGHT EYE: Patchy atrophy There is mild intraretinal fluid Progressed intraretinal fluid LEFT EYE: Few cystic changes Patchy atrophy Progressed intraretinal fluid Leslie Coleman MD OPHTH TOMOGRAPHY Final Result Performing Organization Address [facility]/ZIP Co de Phone Number [facility] OPHTHALMOLOGY ORDERS * EYE DROPS (09/04/2025 9:53 AM STORE LEADER) Narrative [facility] 09/04/2025 11:14 AM STORE LEADER Medications Eye Drops: 1 Drop proparacaine 0.5 % Route: Topical ND: 77293-007-93, Lot: [id number], Expiration date: 10/04/2026 Notes Eye drop orders per protocol for Basic Major Appliance Assembly Supervisor Eye Exam (Non-Dilated) Instill proparacaine (OPHTHAINE) 0.5% ophthalmic solution. Amount: 1 drop per eye prior to tonometry If applanation is preferred method of tonometry: Instill fluorescein-benoxinate (FLURATE) 0.3-0.4 % ophthalmic solution 1 drop per eye during applanation Leslie Coleman MD OPH CLINIC PROCEDURES Final R esult Performing Organization Address [facility] Co de Phone Number [facility] CLIA# [id number] [address] [place] [address] documented in this encounter Visit Diagnoses Diagnosis Exudative age-related macular degeneration of both eyes with active choroidal neovascularization (CMS/HCC)- Primary documented in this encounter Administered Medications Inactive Administered Medications - up to 3 most recent administrations Medication Order MAR Action Action Date Dose Rate Site aflibercept (EYLEA) 2 mg/0.05 mL syringe 2 mg 2 mg, Intravitreal, INTRA-PROCEDURE ONCE PRN, 1 dose, Starting on Wed09/04/25 at 1114, Until Wed09/04/25 at 1114, RoutineIndications:Exudative age-related macular degeneration of both eyes with active choroidal neovascularization (CMS/HCC) Given 09/04/2025 11:14 AM STORE LEADER 2 mg Eye, Right aflibercept (EYLEA) 2 mg/0.05 mL syringe 2 mg 2 mg, Intravitreal, INTRA-PROCEDURE ONCE PRN, 1 dose, Starting on Wed09/04/25 at 1114, Until Wed09/04/25 at 1114, RoutineIndications:Exudative age-related macular degeneration of both eyes with active choroidal neovascularization (CMS/HCC) Given 09/04/2025 11:14 AM STORE LEADER 2 mg Eye, Left lidocaine (PF) (AKTEN PF) 3.5 % ophthalmic gel 2 Drop 2 Drop, INTRA-PROCEDURE ONCE PRN, 1 dose, Starting on Wed09/04/25 at 1114, Until Wed09/04/25 at 1114, RoutineIndications:Exudative age-related macular degeneration of both eyes with active choroidal neovascularization (CMS/HCC) Given 09/04/2025 11:14 AM STORE LEADER 2 Drops Eye, Bilateral povidone-iodine in balanced salt solution 0.25% eye drop 5 Drop 5 Drop, INTRA-PROCEDURE ONCE PRN, 1 dose, Starting on Wed09/04/25 at 1114, Until Wed09/04/25 at 1114, RoutineIndications:Exudative age-related macular degeneration of both eyes with active choroidal neovascularization (CMS/HCC) Given 09/04/2025 11:14 AM STORE LEADER 5 Drops Eye, Bilateral proparacaine (OPTHAINE) 0.5 % ophthalmic solution 1 Drop 1 Drop, INTRA-PROCEDURE ONCE PRN, 1 dose, Starting on Wed09/04/25 at 1114, Until Wed09/04/25 at 1114, RoutineIndications:Exudative age-related macular degeneration of both eyes with active choroidal neovascularization (CMS/HCC) Given 09/04/2025 11:14 AM STORE LEADER 1 Drop proparacaine (OPTHAINE) 0.5 % ophthalmic solution 5 Drop 5 Drop, INTRA-PROCEDURE ONCE PRN, 1 dose, Starting on Wed09/04/25 at 1114, Until Wed09/04/25 at 1114, RoutineIndications:Exudative age-related macular degeneration of both eyes with active choroidal neovascularization (CMS/HCC) Given 09/04/2025 11:14 AM STORE LEADER 5 Drops Eye, Bilateral tetracaine (AK-T-CLARA) 0.5 % ophthalmic solution 5 Drop 5 Drop, INTRA-PROCEDURE ONCE PRN, 1 dose, Starting on Wed09/04/25 at 1114, Until Wed09/04/25 at 1114, RoutineIndications:Exudative age-related macular degeneration of both eyes with active choroidal neovascularization (CMS/HCC) Given 09/04/2025 11:14 AM STORE LEADER 5 Drops Eye, Bilateral documented in this encounter Care Teams Reconciliation Coordinator Relationship Specialty Start Date End Date Charlie Magana MD [address] [place] [phone] PCP - General Family Practice 12/01/16 documented as of this encounter
--- OUTSIDE RECORDS SUMMARY | 2025-09-08 10:28 | XMS_ITS | Encounter Summary ---
Author Organization [facility] Address [address] [place] [address] Care Team Providers Care Agricultural Extension Educator Name Role Phone Charlie Magana MD Primary Care Provider + [phone] Encounter Details Date Type Department Care Team (Late st Contact Info) Description 04/24/2005 Outpatient Historical [facility] Cardiology [facility] [address] [place] [address] Martin Moran MD [address] [facility] [address] [place] [address] CHEST PAIN NOS (Primary Dx) Social History Tobacco Use Types Packs/Day Years Used Date Smoking Tobacco: Never Assessed Sex and Gender Information Value Date Recorded Sex Assigned at Not on file Legal Sex Male 4:31 AM SPECIAL EVENTS COORDINATOR Gender Identity Not on file Sexual Orientation Not on file documented as of this encounter Plan of Treatment Not on file documented as of this encounter Visit Diagnoses Diagnosis Chest pain, unspecified- Primary documented in this encounter Care Teams Agricultural Extension Educator Relationship Specialty [place] [address] [place] [phone] PCP - General Family Practice 12/01/16 documented as of this encounter
--- OUTSIDE RECORDS SUMMARY | 2025-09-08 10:28 | XMS_ITS | Data Portability ---
Author Organization [facility] Trevor Cortez [facility] Address [address] [facility] [address] [place] [address] Assessment No assessment recorded. Plan of Treatment Reminders Order Date Submit Date Provider Last Modified By Organization Details Last Modified Time Details Appointments None recorded. Lab SARS CoV 2 RNA, QL, nasopharynx [address] ([facility]), [address] [place], [address], 3 11:51:37 Referral None recorded. Procedures None recorded. Surgeries None recorded. Imaging None recorded. Medication Orders levofloxaci n 500 mg tablet [address]/Pharmacy #[id number], [address], [address], 3 11:34:50 Paxlovid 150 mg-100 mg tablets in a dose pack (Moderate Renal Dose) 2022 023 [facility]/Pharmacy #[id number], [address], [address], 3 11:51:40 benzonatate 200 mg capsule 2022 023 [facility]/Pharmacy #[id number], [address], [address], 3 11:52:36 Patient TargetsNo targets recorded. Patient Instructions Encounter Date Encounter Id Patient Instructions Last Modified By Organization Details Last Modified Time 05/22/2023 [id number] Patient will monitor BP and HR at home. Not available 05/22/2023 11:51:58 Reason for Referral None Reported. Results Created Date Observation Date Name Description Value Unit Range Abnormal Flag Note LastModifiedBy Organization Detail LastModifiedTime 05/22/20 23 05/22/2023 SARS CoV 2 RNA, QL, nasop haryn x COVID positi ve Not Available [facility] ([facility]) [address] [place] [address], [address], 05/22/2023 11:28:25 Result Notes None recorded. Problems Name Problem SNOMED Code Status Onset Date Resolution Date Notes Provider Name and Address Organization Details Recorded Time Dyslipid emia 066048356 Active 2014 Dyslipid emia; 04/02/20 15 9:05AM by Merlyn De La Rosa CMT, Office Visit; Promoted ; acuity set as *; Not Available [facility] 3 03:16:35 Acute sinusiti s 82381644 Completed 201507/23/2016 ACUTE SINUSITI S - Status is Inactive ; Recorded 07/23/20 16 4:49PM by Vero Melendez LPN, Annotati on/Adden dum; Promoted ; acuity set as *; Not Available [facility] 3 03:16:29 Gastriti s 4530156 Completed 201507/23/2016 GASTRITI S - Status is Inactive ; Recorded 07/23/20 16 4:49PM by Vero Melendez LPN, Annotati on/Adden dum; Promoted ; acuity set as *; Not Available [facility] 3 03:16:40 Coronary arterios clerosis 92422562 Active 2017 CAD (CORONAR Y ARTERY DISEASE) ; 01/29/20 18 4:29PM by Merlyn De La Rosa CMT, Office Visit; Promoted ; acuity set as *; Not Available [facility] 3 03:16:38 Benign hyperten parul 36941492 Completed 201701/28/2018 HTN - Status is Inactive ; 01/29/20 18 4:46PM by Merlyn De La Rosa CMT, Annotati on/Adden dum; Promoted ; acuity set as *; Not Available [facility] 3 03:16:43 Problem Notes None recorded. Medical Equipment None Reported. Allergies Allergen ID Allergen Name Allergen Category Reaction Reaction Severity Criticality Documentation Date Start Date Code Code System Note Provider Name and Address Organization Details Recorded Time 04772 penicilli n V potassium medicatio n Not available Not available Not available 05/01/202386867 5 RxNorm Comme nt: Recor ded 01/28 4:28P M by Harry barrera CMT, Offic e Visit ; Agatha temple; Tiffanie stafford ce: *; Reaso n: Drug aller gy; ; Not Available [facility] 3 02:24:01 Medications Name Sig Start Date Stop Date Status Note LastModified by Organization Details LastModified Time losartan 50 mg tablet TAKE 1 TABLET BY MOUTH ONCE DAILY active Not Available Not Available No t Available promethazi ne-DM 6.25 mg-15 mg/5 mL oral syrup every six hours, as needed 2020 active VO AB/tg; Recorded 07/04/2021 1:47PM by Kinsey Rodriguez, Historical Summary; Refill Quantity: 0; Not Available Not Available Not Available Protonix 40 mg tablet,del ayed release daily active 0; Recorded 01/28/2018 4:47PM by Merlyn De La Rosa CMT, Office Visit; Not Available Not Available Not Available niacin ER 1,000 mg tablet,ext ended release 24 hr TAKE 1 TABLET BY MOUTH TWICE DAILY active Not Available Not Available No t Available benzonatat e 200 mg capsule Take 1 capsule 3 times a day by oral route for 7 days. active Not Available Not Available No t Available diltiazem CD 240 mg capsule,ex tended release 24 hr TAKE 1 CAPSULE BY MOUTH ONCE DAILY active Not Available Not Available No t Available meloxicam 15 mg tablet TAKE 1 TABLET BY MOUTH ONCE DAILY WITH FOOD active Not Available Not Available No t Available prednisone 20 mg tablet TAKE 1 TABLET BY MOUTH ONCE DAILY WITH FOOD active Not Available Not Available No t Available clopidogre l 75 mg tablet TAKE 1 TABLET BY MOUTH ONCE DAILY active Not Available Not Available No t Available ciprofloxa alondra 500 mg tablet TAKE 1 TABLET BY MOUTH TWICE DAILY active Not Available Not Available No t Available hydrochlor othiazide 25 mg tablet TAKE 1 TABLET BY MOUTH ONCE DAILY active Not Available Not Available No t Available levofloxac in 500 mg tablet Take 1 tablet every 24 hours by oral route for 5 days. 2022 active Not Available Not Available Not Avai lable ezetimibe 10 mg tablet TAKE 1 TABLET BY MOUTH ONCE DAILY active Not Available Not Available No t Available rosuvastat in 40 mg tablet TAKE 1 TABLET BY MOUTH ONCE DAILY AT BEDTIME active Not Available Not Available No t Available aspirin daily active 0; Recorded 01/28/2018 4:48PM by Merlyn De La Rosa CMT, Office Visit; Not Available Not Available Not Available hydrochlor othiazide daily active 0; Recorded 01/28/2018 4:48PM by Merlyn De La Rosa CMT, Office Visit; Not Available Not Available Not Available Plavix daily active Recorded 01/28/2018 4:47PM by Merlyn De La Rosa CMT, Office Visit; Not Available Not Available Not Available losartan potassium (bulk) daily active 0; Recorded 01/28/2018 4:47PM by Merlyn De La Rosa CMT, Office Visit; Not Available Not Available Not Available Paxlovid 300 mg (150 mg x 2)-100 mg tablets in a dose pack Take 1 dose pk every day by oral route for 5 days. 2022 active Not Available Not Available Not Avai lable Paxlovid 150 mg-100 mg tablets in a dose pack (Moderate Renal Dose) Take 1 dose pk every 12 hours by oral route for 5 days. 2022 active Not Available Not Available Not Avai lable Vitals Date Recorded Body height Body mass index (BMI) Body weight Oxygen saturation Heart rate Respiratory rate Body temperature Systolic And Diastolic Provider Name and Address Organization Details Last Updated DateTime 3 175.26 cm 27.8 kg/m2 54241.3 7 g 94 % 73 /min 20 /min 98 [degF] 160/71 mm[Hg] [facility] 3 11:26:35 Date Recorded Body height Body mass index (BMI) Body weight Oxygen saturation Heart rate Respiratory rate Body temperature Provider Name and Address Organization Details Last Updated DateTime 3 175.26 cm 26.9 kg/m2 84919.8 1 g 96 % 62 /min 19 /min 97.3 [degF] [facility] 3 10:47:18 Social History None recorded. Functional Status None recorded. Mental Status None recorded. Family History Nothing Reported. Medical History No medical history recorded. Immunizations Vaccine Type Date Status Note Provider Nam e and Address Organization Details Recorded Time Influenza, high-dose, quadrivalent, PF 2 completed [facility] 05/22/2023 11:26:58 COVID-19, mRNA, LNP-S, PF, 100 mcg/0.5mL dose or 50 mcg/0.25mL dose 2 completed [facility] 05/22/2023 11:26:58 COVID-19, mRNA, LNP-S, PF, 100 mcg/0.5mL dose or 50 mcg/0.25mL dose 1 completed [facility] 05/22/2023 11:26:58 COVID-19, mRNA, LNP-S, PF, 100 mcg/0.5mL dose or 50 mcg/0.25mL dose 1 completed [facility] 05/22/2023 11:26:58 Influenza, split virus, trivalent, preservative 0 completed [facility] 05/22/2023 11:26:58 Influenza, split virus, trivalent, preservative 4 completed [facility] 05/22/2023 11:26:58 Influenza, split virus, trivalent, preservative 4 completed [facility] 05/22/2023 11:26:58 Past Encounters Encounter ID Performer Location Encounter Start Date Encounter Closed Date Diagnosis/Indication Diagnosis SNOMED-CT Code Diagnosis ICD10 Code Diagnosis IMO Codes Diagnosis Note [id number] [facility]ETTE BELL [facility] ([facility]) [address] [place] [address] 05/22/2023 11:15:37 05/22/2023 12:43:51 Cough 30423802 R05.9 COVID-19 837891647 U07.1 [id number] YVETTE BELL [facility] ([facility]) [address] [place] [address] 06/19/2023 10:34:39 06/19/2023 11:41:29 Acute sinusitis 57878988 J01.90 Increase po fluids. Continue OTC antihistam ine. Use flonase 2 sprays daily. Health Concerns Section Related Observation LastModified by Organization Detai ls LastModified Time None Recorded Concern Status LastModified by Organization Details LastModified Time None Recorded Advance Directives Directive None Recorded Payers Insurance Date Sequence Insurance Name Policy Number Policy Keller Covered Member ID Keller Member ID Guarantor Name 06/19/2023 1 [place] Pritesh Saunders [id number] Pritesh Saunders 06/27/2023 2 [employer] (MEDICARE SUPPLEMENT) Pritesh Saunders [id number] Pritesh Saunders 06/19/2023 [place] - [facility] (MEDICARE) Pritesh Saunders [id number] Pritesh Saunders Notes Date Note Type Note Provider Name and Address Organization Details Recorded Time 05/22/2023 text/html Upper Respirator y SymptomsReported by PatientUpper Respiratory SymptomsFor quality, patient reportsdry coughandnasal discharge. For associated symptoms, patient reportsshortness of breath,difficulty breathing at night,fatigue, andheadachebut reportsno chest painandno sputum production. For location, patient reportsheadandchest. For severity, patient reportsmoderate. For duration, patient reportssymptoms lasting less than 2 weeks. For onset/timing, patient reportssudden. For context, patient reportsno sick contacts.ROS as noted in the HPI YVETTE BELL [address] [place] [address], [id number], [facility] 05/22/2023 11:52:45 06/19/2023 text/html Upper Respirator y SymptomsReported by PatientUpper Respiratory SymptomsFor quality, patient reportscongested. For associated symptoms, patient reportsyellow sputum,fatigue, andheadachebut reportsno chest pain. For location, patient reportsheadandnasal. For severity, patient reportsmoderate. For duration, patient reportssymptoms lasting over 2 weeks. For onset/timing, patient reportsgradual. For context, patient reportsno sick contacts.ROS as noted in the HPI YVETTE BELL [address] [place], [address], [facility] 06/[facility]/2023 11:36:23
--- OUTSIDE RECORDS SUMMARY | 2025-09-08 10:28 | XMS_ITS | Encounter Summary ---
Author Organization [facility] Address [address] [place] [address] Care Team Providers Care Psychometrist Name Role Phone Charlie Magana MD Primary Care Provider + [phone] Encounter Details Date Type Department Care Team (Latest Contact Info) Description 09/30/2008 Outpatient Historical [facility] Emergency Department [address] 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 Gender Identity Not on file Sexual Orientation Not on file documented as of this encounter Plan of Treatment Not on file documented as of this encounter Procedures Procedure Name Priority Date/Time Associated Diagnosis Comments CARDIAC ENZYMES Routine 10/01/2008 6:16 AM TILE PROFESSIONAL CARDIAC ENZYMES Routine 10/01/2008 12:03 AM TILE PROFESSIONAL XR CHEST PA OR AP 1 VW Routine 09/30/2008 6:30 PM TILE PROFESSIONAL CARDIAC ENZYMES Stat 09/30/2008 6:22 PM TILE PROFESSIONAL CBC WITH DIFFERENTIAL Stat 09/30/2008 6:22 PM TILE PROFESSIONAL PTT Stat 09/30/2008 6:22 PM TILE PROFESSIONAL PROTIME-INR Stat 09/30/2008 6:22 PM TILE PROFESSIONAL BASIC METABOLIC PANEL Stat 09/30/2008 6:22 PM TILE PROFESSIONAL documented in this encounter Results * CARDIAC ENZYMES (10/01/2008 6:16 AM TILE PROFESSIONAL) TROPONIN I <0.1 0.0 - 1.3 ng/mL [facility] CKMB 0.5 0.0 - 5.0 ng/mL [facility] Blood specimen (specimen) 10/01/2008 6:16 AM TILE PROFESSIONAL 10/01/2008 6:25 AM TILE PROFESSIONAL us Manny James MD CHEMISTRY ORDERABLES Final R esult INTERFACE SYSTEM Refer to clinic/hospital department [facility]# [id number] [address] [place] [address] * CARDIAC ENZYMES (10/01/2008 12:03 AM TILE PROFESSIONAL) TROPONIN I <0.1 0.0 - 1.3 ng/mL [facility] CKMB 0.6 0.0 - 5.0 ng/mL [facility] Blood specimen (specimen) 10/01/2008 12:03 AM TILE PROFESSIONAL 10/01/2008 12:12 AM TILE PROFESSIONAL us Manny James MD CHEMISTRY ORDERABLES Final R esult INTERFACE SYSTEM Refer to clinic/hospital department [facility] CLIA# [id number] [facility] [address] * XR CHEST PA OR AP (09/30/2008 6:30 PM TILE PROFESSIONAL) Anatomical Region Laterality Modality Chest Other 09/30/2008 6:30 PM TILE PROFESSIONAL Narrative 09/30/2008 7:24 PM TILE PROFESSIONAL A portable chest at 1826 was obtained [...] (ABNORMAL) BASIC METABOLIC PANEL (09/30/2008 6:22 PM TILE PROFESSIONAL) POTASSIUM 3.9 3.5 - 5.0 mEq/L [facility] OSMOLALITY, CALCULATED 296(H) 275 - 295 mOsm/Kg [facility] SODIUM 143 136 - 145 mEq/L [facility] CALCIUM 9.7 8.4 - 10.5 mg/dL [facility] CREATININE 1.0 0.7 - 1.5 mg/dL [facility] CHLORIDE 107 95 - 110 mEq/L [facility] BUN 16 9 - 20 mg/dL [facility] ANION GAP 14 9 - 20 mEq/L [facility] GLUCOSE 118(H) 70 - 110 mg/dL [facility] CO2 26 22 - 32 mmol/l [facility] Blood specimen (specimen) 09/30/2008 6:22 PM TILE PROFESSIONAL 09/30/2008 6:31 PM TILE PROFESSIONAL us Manny James MD CHEMISTRY ORDERABLES Final R esult INTERFACE SYSTEM Refer to clinic/hospital department [facility] CLIA# [id number] [address] [place] [address] * (ABNORMAL) CBC WITH DIFFERENTIAL (09/30/2008 6:22 PM TILE PROFESSIONAL) LYMPHOCYTE ABSOLUTE 1.2 1.2 - 4.0 K/ul [facility] MCV 88.2 84.0 - 103.0 Fl [facility] MPV 9.4 8.9 - 12.8 Fl [facility] BASOPHILS ABSOLUTE 0.0 0.0 - 0.2 K/ul [facility] BASOPHILS 0.4 0.0 - 1.0 % [facility] HEMOGLOBIN 15.6 14.0 - 18.0 g/dL [facility] RDW 13.2 11.0 - 14.5 % [facility] MONOCYTE ABSOLUTE 0.9(H) 0.1 - 0.6 K/ul [facility] MONOCYTES 11.1(H) 2.0 - 10.0 % [facility] WBC 8.5 4.8 - 10.8 K/ul [facility] MCH 30.8 27.0 - 34.0 pg [facility] NEUTROPHIL ABSOLUTE 6.1 2.0 - 8.0 K/ul [facility] NEUTROPHILS 72.2 42.2 - 75.2 % [facility] HEMATOCRIT 44.7 41.0 - 53.0 % [facility] EOSINOPHILS 2.2 0.0 - 7.0 % [facility] PLATELETS 287 140 - 440 K/ul [facility] EOSINOPHIL ABSOLUTE 0.2 0.0 - 0.7 K/ul [facility] RBC 5.07 4.60 - 6.20 Mil/ul [facility] LYMPHOCYTES 14.1(L) 24.0 - 44.0 % [facility] MCHC 34.9 30.0 - 35.0 g/dL [facility] Blood specimen (specimen) 09/30/2008 6:22 PM TILE PROFESSIONAL 09/30/2008 6:31 PM TILE PROFESSIONAL Manny James MD HEMATOLOGY ORDERABLES Final Result Performing Organization Address [facility] Phone Number INTERFACE SYSTEM Refer to clinic/hospital department [facility] CLIA# [id number] [address] [place] [address] * PTT (09/30/2008 6:22 PM TILE PROFESSIONAL) PTT 29.0 22.5 - 36.5 Secs [facility] Comment: Therapeutic Range: Hi-level PE/DVT heparin protocol 80.1 -95.0 sec Lo-level PE/DVT heparin protocol 67.1 - 80.0 sec Cardiac Heparin Protocol 67.1 - 85.0 sec Neuro Heparin Protocol 67.1 - 80.0 sec As of 12/22/2007 note change in APTT Normal Range. Blood specimen (specimen) 09/30/2008 6:22 PM TILE PROFESSIONAL 09/30/2008 6:31 PM TILE PROFESSIONAL Manny James MD HEMATOLOGY ORDERABLES Final Result Performing Organization Address [facility] Phone Number INTERFACE SYSTEM Refer to clinic/hospital department [facility] CLIA# [id number] [address] [place] [phone] * PROTIME-INR (09/30/2008 6:22 PM TILE PROFESSIONAL) INR 1.0 [facility] Comment: Expected Values for INR: DVT/PE Goal INR 2.5; range 2.0 - 3.0 Valve Replacement Tissue Goal INR 2.5; range 2.0 - 3.0 Mechanical Goal INR 3.0; range 2.5 - 3.5 POST-UT Goal INR 2.5; range 2.0 - 3.0 or Goal 3.0; range 2.5 - 3.5 Atrial Fibrillation Goal INR 2.5; range 2.0 - 3.0 Ischemic Stroke Goal INR 2.5; range 2.0 - 3.0 For additional information see Guidelines for Anticoagulation available from the pharmacy Meredith Viramontes [phone] PROTIME 14.0 12.8 - 15.8 Secs [facility] Comment:As of 2007 not e change in normal range. Blood specimen (specimen) 09/30/2008 6:22 PM TILE PROFESSIONAL 09/30/2008 6:31 PM TILE PROFESSIONAL Manny James MD HEMATOLOGY ORDERABLES Final Result Performing Organization Address [facility] Phone Number INTERFACE SYSTEM Refer to clinic/hospital department [facility] CLIA# [id number] [address] [place] [address] * CARDIAC ENZYMES (09/30/2008 6:22 PM TILE PROFESSIONAL) CKMB 0.7 0.0 - 5.0 ng/mL [facility] TROPONIN I <0.1 0.0 - 1.3 ng/mL [facility] Blood specimen (specimen) 09/30/2008 6:22 PM TILE PROFESSIONAL 09/30/2008 6:31 PM TILE PROFESSIONAL Manny James MD CHEMISTRY ORDERABLES Final R esult Performing Organization Address [facility] de Phone Number INTERFACE SYSTEM Refer to clinic/hospital department [facility] CLIA# [id number] [address] [place] [address] documented in this encounter Visit Diagnoses Diagnosis Chest pain, unspecified Unspecified essential hypertension Other and unspecified hyperlipidemia Intermediate coronary syndrome (CMS/HCC) Intermediate coronary syndrome documented in this encounter Care Teams Psychometrist Relationship Specialty Start Date End Date Charlie Magana MD [address] [place] [address] PCP - General Family Practice 12/01/16 documented as of this encounter
--- OUTSIDE RECORDS SUMMARY | 2025-09-08 10:28 | XMS_ITS | Encounter Summary ---
Author Organization [facility] Address [address] [place] [address] Care Team Providers Care Systems Eng Name Role Phone Charlie Magana MD Primary Care Provider + [phone] Encounter Details Date Type Department Care Team (Latest Contact Info) Description 05/26/2005 Outpatient Historical [facility] Cardiology- [place] [address] [place] [phone] Pj Meraz MD NO ADDRESS ON FILE Benign hypertension (Primary Dx); MIXED HYPERLIPIDEMIA Social History Tobacco Use Types Packs/Day Years Used Date Smoking Tobacco: Never Assessed Sex and Gender Information Value Date Recorded Sex Assigned at Not on file 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
--- OUTSIDE RECORDS SUMMARY | 2025-09-08 10:28 | XMS_ITS | Encounter Summary ---
Author Organization [facility] Address [address] [place] [address] Care Team Providers Care Binding End Stitcher Name Role Phone Charlie Magana MD Primary Care Provider + [phone] Encounter Details Date Type Department Care Team (Latest Contact Info) Description 08/11/2008 Outpatient Historical [facility] 4B Cardiac [address] 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 Gender Identity Not on file Sexual Orientation Not on file documented as of this encounter Plan of Treatment Not on file documented as of this encounter Procedures Procedure Name Priority Date/Time Associated Diagnosis Comments POC GLUCOSE Routine 08/12/2008 8:54 PM INFORMATION SYSTEMS PROJECT MANAGER CARDIAC ENZYMES Routine 08/12/2008 12:25 PM INFORMATION SYSTEMS PROJECT MANAGER CARDIAC ENZYMES Routine 08/12/2008 6:09 AM INFORMATION SYSTEMS PROJECT MANAGER CBC WITH DIFFERENTIAL Routine 08/12/2008 6:09 AM INFORMATION SYSTEMS PROJECT MANAGER BASIC METABOLIC PANEL Routine 08/12/2008 6:09 AM INFORMATION SYSTEMS PROJECT MANAGER CARDIAC ENZYMES Stat 08/12/2008 12:25 AM INFORMATION SYSTEMS PROJECT MANAGER CBC WITH DIFFERENTIAL Stat 08/12/2008 12:25 AM INFORMATION SYSTEMS PROJECT MANAGER PTT Stat 08/12/2008 12:25 AM INFORMATION SYSTEMS PROJECT MANAGER PROTIME-INR Stat 08/12/2008 12:25 AM INFORMATION SYSTEMS PROJECT MANAGER BASIC METABOLIC PANEL Stat 08/12/2008 12:25 AM INFORMATION SYSTEMS PROJECT MANAGER XR CHEST PA OR AP 1 VW Routine 08/12/2008 12:19 AM INFORMATION SYSTEMS PROJECT MANAGER documented in this encounter Results * (ABNORMAL) POC GLUCOSE (08/12/2008 8:54 PM INFORMATION SYSTEMS PROJECT MANAGER) Pathologist [facility] GLUCOSE POC 119(H) 60 - 100 mg/dL [facility] Venous blood specimen (specimen) 08/12/2008 8:54 PM INFORMATION SYSTEMS PROJECT MANAGER 08/12/2008 9:28 PM INFORMATION SYSTEMS PROJECT MANAGER us Jules Mensah MD POINT OF CARE TESTING Final Re sult INTERFACE SYSTEM Refer to clinic/hospital department [facility]# [id number] [address] [place] [address] * CARDIAC ENZYMES (08/12/2008 12:25 PM INFORMATION SYSTEMS PROJECT MANAGER) [facility] TROPONIN I <0.1 0.0 - 1.3 ng/mL [facility] CKMB 0.3 0.0 - 5.0 ng/mL [facility] Blood specimen (specimen) 08/12/2008 12:25 PM INFORMATION SYSTEMS PROJECT MANAGER 08/12/2008 12:31 PM INFORMATION SYSTEMS PROJECT MANAGER us Harvey Joseph MD CHEMISTRY ORDERABLES Shaista l Result Performing Organization Address [facility] de Phone Number INTERFACE SYSTEM Refer to clinic/hospital department [facility] CLIA# [id number] [address] [place] [address] * CARDIAC ENZYMES (08/12/2008 6:09 AM INFORMATION SYSTEMS PROJECT MANAGER) TROPONIN I <0.1 0.0 - 1.3 ng/mL [facility] CKMB 0.5 0.0 - 5.0 ng/mL [facility] Blood specimen (specimen) 08/12/2008 6:09 AM INFORMATION SYSTEMS PROJECT MANAGER 08/12/2008 6:17 AM INFORMATION SYSTEMS PROJECT MANAGER Harvey Joseph MD CHEMISTRY ORDERABLES Shaista l Result Performing Organization Address [facility] de Phone Number INTERFACE SYSTEM Refer to clinic/hospital department [facility] CLIA# [id number] [address] [place] [address] * BASIC METABOLIC PANEL (08/12/2008 6:09 AM INFORMATION SYSTEMS PROJECT MANAGER) Pathologist [facility] OSMOLALITY, CALCULATED 293 275 - 295 mOsm/Kg [facility] CREATININE 1.1 0.7 - 1.5 mg/dL [facility] CALCIUM 9.5 8.4 - 10.5 mg/dL [facility] GLUCOSE 110 70 - 110 mg/dL [facility] CHLORIDE 106 95 - 110 mEq/L [facility] ANION GAP 13 9 - 20 mEq/L [facility] SODIUM 141 136 - 145 mEq/L [facility] BUN 18 9 - 20 mg/dL [facility] CO2 26 22 - 32 mmol/l [facility] POTASSIUM 4.2 3.5 - 5.0 mEq/L [facility] Blood specimen (specimen) 08/12/2008 6:09 AM INFORMATION SYSTEMS PROJECT MANAGER 08/12/2008 6:17 AM INFORMATION SYSTEMS PROJECT MANAGER Jules Mensah MD CHEMISTRY ORDERABLES Final Res ult INTERFACE SYSTEM Refer to clinic/hospital department [facility] CLIA# [id number] [facility] [place] [address] * (ABNORMAL) CBC WITH DIFFERENTIAL (08/12/2008 6:09 AM INFORMATION SYSTEMS PROJECT MANAGER) NEUTROPHIL ABSOLUTE 5.3 2.0 - 8.0 K/ul [facility] NEUTROPHILS 62.6 42.2 - 75.2 % [facility] HEMATOCRIT 41.8 41.0 - 53.0 % [facility] EOSINOPHILS 3.3 0.0 - 7.0 % [facility] PLATELETS 276 140 - 440 K/ul [facility] EOSINOPHIL ABSOLUTE 0.3 0.0 - 0.7 K/ul [facility] RBC 4.62 4.60 - 6.20 Mil/ul [facility] LYMPHOCYTES 22.4(L) 24.0 - 44.0 % [facility] MCHC 34.0 30.0 - 35.0 g/dL [facility] LYMPHOCYTE ABSOLUTE 1.9 1.2 - 4.0 K/ul [facility] MCV 90.5 84.0 - 103.0 Fl [facility] MPV 9.1 8.9 - 12.8 Fl [facility] BASOPHILS ABSOLUTE 0.1 0.0 - 0.2 K/ul [facility] BASOPHILS 0.6 0.0 - 1.0 % [facility] HEMOGLOBIN 14.2 14.0 - 18.0 g/dL [facility] RDW 13.3 11.0 - 14.5 % [facility] MONOCYTE ABSOLUTE 0.9(H) 0.1 - 0.6 K/ul [facility] MONOCYTES 11.1(H) 2.0 - 10.0 % [facility] WBC 8.4 4.8 - 10.8 K/ul [facility] MCH 30.7 27.0 - 34.0 pg [facility] Blood specimen (specimen) 08/12/2008 6:09 AM INFORMATION SYSTEMS PROJECT MANAGER 08/12/2008 6:17 AM INFORMATION SYSTEMS PROJECT MANAGER Jules Mensah MD HEMATOLOGY ORDERABLES Final Re sult Performing Organization Address [facility] Phone Number INTERFACE SYSTEM Refer to clinic/hospital department [facility] CLIA# [id number] [address] [place] [address] * (ABNORMAL) BASIC METABOLIC PANEL (08/12/2008 12:25 AM INFORMATION SYSTEMS PROJECT MANAGER) ANION GAP 9 9 - 20 mEq/L [facility] SODIUM 136 136 - 145 mEq/L [facility] BUN 21(H) 9 - 20 mg/dL [facility] CO2 28 22 - 32 mmol/l [facility] POTASSIUM 3.9 3.5 - 5.0 mEq/L [facility] OSMOLALITY, CALCULATED 284 275 - 295 mOsm/Kg [facility] CREATININE 1.1 0.7 - 1.5 mg/dL [facility] CALCIUM 9.6 8.4 - 10.5 mg/dL [facility] GLUCOSE 115(H) 70 - 110 mg/dL [facility] CHLORIDE 103 95 - 110 mEq/L [facility] Blood specimen (specimen) 08/12/2008 12:25 AM INFORMATION SYSTEMS PROJECT MANAGER 08/12/2008 12:25 AM INFORMATION SYSTEMS PROJECT MANAGER Harvey Joseph MD CHEMISTRY ORDERABLES Shaista l Result Performing Organization Address [facility] Phone Number INTERFACE SYSTEM Refer to clinic/hospital department [facility] CLIA# [id number] [facility] [place] [address] * (ABNORMAL) CBC WITH DIFFERENTIAL (08/12/2008 12:25 AM INFORMATION SYSTEMS PROJECT MANAGER) WBC 11.3(H) 4.8 - 10.8 K/ul [facility] MCH 31.1 27.0 - 34.0 pg [facility] NEUTROPHIL ABSOLUTE 8.5(H) 2.0 - 8.0 K/ul [facility] NEUTROPHILS 75.8(H) 42.2 - 75.2 % [facility] HEMATOCRIT 44.6 41.0 - 53.0 % [facility] EOSINOPHILS 2.4 0.0 - 7.0 % [facility] PLATELETS 318 140 - 440 K/ul [facility] EOSINOPHIL ABSOLUTE 0.3 0.0 - 0.7 K/ul [facility] RBC 4.99 4.60 - 6.20 Mil/ul [facility] LYMPHOCYTES 13.5(L) 24.0 - 44.0 % [facility] MCHC 34.8 30.0 - 35.0 g/dL [facility] LYMPHOCYTE ABSOLUTE 1.5 1.2 - 4.0 K/ul [facility] MCV 89.4 84.0 - 103.0 Fl [facility] MPV 9.2 8.9 - 12.8 Fl [facility] BASOPHILS ABSOLUTE 0.0 0.0 - 0.2 K/ul [facility] BASOPHILS 0.3 0.0 - 1.0 % [facility] HEMOGLOBIN 15.5 14.0 - 18.0 g/dL [facility] RDW 13.2 11.0 - 14.5 % [facility] MONOCYTE ABSOLUTE 0.9(H) 0.1 - 0.6 K/ul [facility] MONOCYTES 8.0 2.0 - 10.0 % [facility] Blood specimen (specimen) 08/12/2008 12:25 AM INFORMATION SYSTEMS PROJECT MANAGER 08/12/2008 12:25 AM INFORMATION SYSTEMS PROJECT MANAGER Harvey Joseph MD HEMATOLOGY ORDERABLES Fin al Result INTERFACE SYSTEM Refer to clinic/hospital department [facility] CLIA# [id number] [address] [place] [address] * PTT (08/12/2008 12:25 AM INFORMATION SYSTEMS PROJECT MANAGER) PTT 31.2 22.5 - 36.5 Secs [facility] Comment: Therapeutic Range: Hi-level PE/DVT heparin protocol 80.1 -95.0 sec Lo-level PE/DVT heparin protocol 67.1 - 80.0 sec Cardiac Heparin Protocol 67.1 - 85.0 sec Neuro Heparin Protocol 67.1 - 80.0 sec As of 12/22/2007 note change in APTT Normal Range. Blood specimen (specimen) 08/12/2008 12:25 AM INFORMATION SYSTEMS PROJECT MANAGER 08/12/2008 12:25 AM INFORMATION SYSTEMS PROJECT MANAGER us Harvey Joseph MD HEMATOLOGY ORDERABLES Fin al Result INTERFACE SYSTEM Refer to clinic/hospital department [facility] CLIA# [id number] [address] [place] [address] * PROTIME-INR (08/12/2008 12:25 AM INFORMATION SYSTEMS PROJECT MANAGER) INR 1.0 [facility] Comment: Expected Values for INR: DVT/PE Goal INR 2.5; range 2.0 - 3.0 Valve Replacement Tissue Goal INR 2.5; range 2.0 - 3.0 Mechanical Goal INR 3.0; range 2.5 - 3.5 POST-NH Goal INR 2.5; range 2.0 - 3.0 or Goal 3.0; range 2.5 - 3.5 Atrial Fibrillation Goal INR 2.5; range 2.0 - 3.0 Ischemic Stroke Goal INR 2.5; range 2.0 - 3.0 For additional information see Guidelines for Anticoagulation available from the pharmacy [facility] Viramontes [phone] PROTIME 14.1 12.8 - 15.8 Secs [facility] Comment:As of 2007 not e change in normal range. Blood specimen (specimen) 08/12/2008 12:25 AM INFORMATION SYSTEMS PROJECT MANAGER 08/12/2008 12:25 AM INFORMATION SYSTEMS PROJECT MANAGER us Harvey Joseph MD HEMATOLOGY ORDERABLES Fin al Result Performing Organization Address [facility] Phone Number INTERFACE SYSTEM Refer to clinic/hospital department [facility] CLIA# [id number] [address] [place] [address] * CARDIAC ENZYMES (08/12/2008 12:25 AM INFORMATION SYSTEMS PROJECT MANAGER) TROPONIN I <0.1 0.0 - 1.3 ng/mL [facility] CKMB 0.3 0.0 - 5.0 ng/mL [facility] Blood specimen (specimen) 08/12/2008 12:25 AM INFORMATION SYSTEMS PROJECT MANAGER 08/12/2008 12:25 AM INFORMATION SYSTEMS PROJECT MANAGER Harvey Joseph MD CHEMISTRY ORDERABLES Shaista l Result Performing Organization Address [facility] Phone Number INTERFACE SYSTEM Refer to clinic/hospital department [facility] CLIA# [id number] [address] [place] [address] * XR CHEST PA OR AP (08/12/2008 12:19 AM INFORMATION SYSTEMS PROJECT MANAGER) Anatomical Region Laterality Modality Chest Other 08/12/2008 12:1 9 AM INFORMATION SYSTEMS PROJECT MANAGER Narrative 08/13/2008 12:52 AM INFORMATION SYSTEMS PROJECT MANAGER Exam: Chest - Portable Date/Time of [...] unspecified documented in this encounter Care Teams Binding End Stitcher Relationship Specialty [place] [address] [place] [phone] PCP - General Family Practice 12/01/16 documented as of this encounter
--- OUTSIDE RECORDS SUMMARY | 2025-09-08 10:28 | XMS_ITS | Encounter Summary ---
Author Organization [facility] Address [address] [place] [address] Care Team Providers Care Instrument And Controls Technician Name Role Phone Charlie Magana MD Primary Care Provider + [phone] Encounter Details Date Type Department Care Team (Late st Contact Info) Description 08/03/2008 Inpatient Historical [facility] IN BED Jules Mensah MD [address] [place] [address] [address] [place] [phone] Unspecified Chest Pain; Intermediate Coronary Syndrome (CMS/HCC); Unspecified Essential Hypertension; Other and Unspecified Hyperlipidemia; Family History of Ischemic Heart Disease; Family History of Stroke (Cerebrovascular) Social History Tobacco Use Types Packs/Day Years Used Date Smoking Tobacco: Never Assessed Sex and Gender Information Value Date Recorded Sex Assigned at Not on file 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 Gender Identity Not on file [...] CLOTTING TIME (08/04/2008 3:25 PM CDT) [facility] POC 143 79 - 149 sec [facility] Blood specimen (specimen) 08/04/2008 3:25 PM CDT 08/05/2008 3:48 PM TAG MACHINE OPERATOR Jules Mensah MD POINT OF CARE TESTING Final Re sult Performing Organization Address [facility] de Phone Number INTERFACE SYSTEM Refer to clinic/hospital department [facility] CLIA# [id number] [address] [place] [address] * (ABNORMAL) POC ACTIVATED CLOTTING TIME (08/04/2008 1:45 PM CDT) [facility] ACT POC 170(H) 79 - 149 sec [facility] Blood specimen (specimen) 08/04/2008 1:45 PM CDT 08/05/2008 3:48 PM TAG MACHINE OPERATOR Jules Mensah MD POINT OF CARE TESTING Final Re sult Performing Organization Address [facility] de Phone Number INTERFACE SYSTEM Refer to clinic/hospital department [facility] CLIA# [id number] [address] [place] [address] * (ABNORMAL) POC ACTIVATED CLOTTING TIME (08/04/2008 12:49 PM CDT) ACT POC 179(H) 79 - 149 sec [facility] Blood specimen (specimen) 08/04/2008 12:49 PM CDT 08/05/2008 3:48 PM TAG MACHINE OPERATOR Jules Mensah MD POINT OF CARE TESTING Final Re sult Performing Organization Address [facility] de Phone Number INTERFACE SYSTEM Refer to clinic/hospital department [facility] CLIA# [id number] [address] [place] [address] * MRSA CULTURE (08/04/2008 11:27 AM CDT) FINAL REPORT Culture screen for MRSA negative INTERFACE SYSTEM ANTERIOR NARES SWAB / Unknown 08/04/2008 11:27 AM CDT 08/04/2008 2:11 PM CDT Jules Mensah MD MICROBIOLOGY - GENERAL ORDERAB LES Final Result Performing Organization Address [facility] Phone Number INTERFACE SYSTEM Refer to clinic/hospital department * PT AND APTT (08/04/2008 7:33 AM CDT) INR 1.0 [facility] Comment: Expected Values for INR: DVT/PE Goal INR 2.5; range 2.0 - 3.0 Valve Replacement Tissue Goal INR 2.5; range 2.0 - 3.0 Mechanical Goal INR 3.0; range 2.5 - 3.5 POST-TN Goal INR 2.5; range 2.0 - 3.0 or Goal 3.0; range 2.5 - 3.5 Atrial Fibrillation Goal INR 2.5; range 2.0 - 3.0 Ischemic Stroke Goal INR 2.5; range 2.0 - 3.0 For additional information see Guidelines for Anticoagulation available from the pharmacy [facility] Viramontes [phone] PTT 34.6 22.5 - 36.5 Secs [facility] Comment: Therapeutic Range: Hi-level PE/DVT heparin protocol 80.1 -95.0 sec Lo-level PE/DVT heparin protocol 67.1 - 80.0 sec Cardiac Heparin Protocol 67.1 - 85.0 sec Neuro Heparin Protocol 67.1 - 80.0 sec As of 12/22/2007 note change in APTT Normal Range. PROTIME 14.8 12.8 - 15.8 Secs [facility] Comment:As of 2007 not e change in normal range. Blood specimen (specimen) 08/04/2008 7:33 AM CDT 08/04/2008 7:48 AM CDT Jules Mensah MD HEMATOLOGY ORDERABLES Edited Performing Organization Address [facility] de Phone Number INTERFACE SYSTEM Refer to clinic/hospital department [facility] CLIA# [id number] [address] [place] [address] * BASIC METABOLIC PANEL (08/04/2008 7:33 AM CDT) BUN 17 9 - 20 mg/dL [facility] CO2 27 22 - 32 mmol/l [facility] OSMOLALITY, CALCULATED 288 275 - 295 mOsm/Kg [facility] POTASSIUM 4.2 3.5 - 5.0 mEq/L [facility] CREATININE 1.0 0.7 - 1.5 mg/dL [facility] CALCIUM 9.8 8.4 - 10.5 mg/dL [facility] GLUCOSE 102 70 - 110 mg/dL [facility] CHLORIDE 106 95 - 110 mEq/L [facility] SODIUM 139 136 - 145 mEq/L [facility] ANION GAP 10 9 - 20 mEq/L [facility] Blood specimen (specimen) 08/04/2008 7:33 AM CDT 08/04/2008 7:48 AM CDT Jules Mensah MD CHEMISTRY ORDERABLES Final Res ult INTERFACE SYSTEM Refer to clinic/hospital department [facility] CLIA# [id number] [facility] [place] [address] * (ABNORMAL) CBC WITH DIFFERENTIAL (08/04/2008 7:33 AM CDT) MCV 88.8 84.0 - 103.0 Fl [facility] BASOPHILS 0.5 0.0 - 1.0 % [facility] MPV 9.2 8.9 - 12.8 Fl [facility] BASOPHILS ABSOLUTE 0.0 0.0 - 0.2 K/ul [facility] HEMOGLOBIN 15.7 14.0 - 18.0 g/dL [facility] MONOCYTES 11.5(H) 2.0 - 10.0 % [facility] RDW 13.5 11.0 - 14.5 % [facility] MONOCYTE ABSOLUTE 0.9(H) 0.1 - 0.6 K/ul [facility] WBC 7.5 4.8 - 10.8 K/ul [facility] NEUTROPHILS 64.2 42.2 - 75.2 % [facility] MCH 30.8 27.0 - 34.0 pg [facility] NEUTROPHIL ABSOLUTE 4.8 2.0 - 8.0 K/ul [facility] HEMATOCRIT 45.3 41.0 - 53.0 % [facility] PLATELETS 253 140 - 440 K/ul [facility] EOSINOPHIL ABSOLUTE 0.4 0.0 - 0.7 K/ul [facility] EOSINOPHILS 4.7 0.0 - 7.0 % [facility] RBC 5.10 4.60 - 6.20 Mil/ul [facility] MCHC 34.7 30.0 - 35.0 g/dL [facility] LYMPHOCYTE ABSOLUTE 1.4 1.2 - 4.0 K/ul [facility] LYMPHOCYTES 19.1(L) 24.0 - 44.0 % [facility] Blood specimen (specimen) 08/04/2008 7:33 AM CDT 08/04/2008 7:48 AM CDT Jules Mensah MD HEMATOLOGY ORDERABLES Final Re sult Performing Organization Address [facility] de Phone Number INTERFACE SYSTEM Refer to clinic/hospital department [facility] CLIA# [id number] [address] [place] [address] * CARDIAC ENZYMES (08/04/2008 7:33 AM CDT) TROPONIN I <0.1 0.0 - 1.3 ng/mL [facility] CKMB 0.7 0.0 - 5.0 ng/mL [facility] Blood specimen (specimen) 08/04/2008 7:33 AM CDT 08/04/2008 7:48 AM CDT Jules Mensah MD CHEMISTRY ORDERABLES Final Res ult Performing Organization Address [facility] de Phone Number INTERFACE SYSTEM Refer to clinic/hospital department [facility] CLIA# [id number] [address] [place] [address] * CARDIAC ENZYMES (08/04/2008 1:11 AM CDT) TROPONIN I <0.1 0.0 - 1.3 ng/mL [facility] CKMB 0.5 0.0 - 5.0 ng/mL [facility] Blood specimen (specimen) 08/04/2008 1:11 AM CDT 08/04/2008 1:55 AM CDT Jules Mensah MD CHEMISTRY ORDERABLES Final Res ult Performing Organization Address [facility] de Phone Number INTERFACE SYSTEM Refer to clinic/hospital department [facility] CLIA# [id number] [address] [place] [address] * CARDIAC ENZYMES (08/03/2008 7:18 PM CDT) TROPONIN I <0.1 0.0 - 1.3 ng/mL [facility] CKMB 0.7 0.0 - 5.0 ng/mL [facility] Blood specimen (specimen) 08/03/2008 7:18 PM CDT 08/03/2008 7:18 PM CDT us Jules Mensah MD CHEMISTRY ORDERABLES Final Res ult INTERFACE SYSTEM Refer to clinic/hospital department [facility] CLIA# [id number] [address] [place] [address] documented in this encounter Visit Diagnoses Diagnosis Chest pain, unspecified Intermediate coronary syndrome (CMS/HCC) Intermediate coronary syndrome Unspecified essential hypertension Other and unspecified hyperlipidemia Family history of ischemic heart disease Family history of stroke (cerebrovascular) documented in this encounter Care Teams Instrument And Controls Technician Relationship Specialty Start Date End Date Charlie Magana MD [address] [place] [phone] PCP - General Family Practice 12/01/16 documented as of this encounter
--- OUTSIDE RECORDS SUMMARY | 2025-09-08 10:28 | XMS_ITS | Clinical Summary ---
Author Organization [facility] tone Address [address] [place] [address] Care Team Providers Care Accountant Controller Name Role Phone Charlie Magana MD Primary Care Provider + [phone] Allergies Active Allergy Reactions Criticality Noted Date [...] type, unspecified whether angina present, unspecified whether unga or transplanted heart,Dyslipidem ia TAKE 1 TABLET [...] subcutaneous injection every 2 weeks. 2 mL 5 Active Hospital, Clinic, or Other Facility Administered Medication Ordered Dose Route Frequency Start Date End Date Status aflibercept (EYLEA) 2 mg/0.05 mL syringe 2 mgIndications:Exudative age-related macular degeneration of both eyes with active choroidal neovascularization (CMS/HCC) 2 mg IZ INTRA-PROCEDURE ONCE PRN 09/04/2025 5 Ended aflibercept (EYLEA) 2 mg/0.05 mL syringe 2 mgIndications:Exudative age-related macular degeneration of both eyes with active choroidal neovascularization (CMS/HCC) 2 mg IZ INTRA-PROCEDURE ONCE PRN 09/04/2025 5 Ended proparacaine (OPTHAINE) 0.5 % ophthalmic solution 1 DropIndications:Exudativ e age-related macular degeneration of both eyes with active choroidal neovascularization (CMS/HCC) 1 Drop INTRA-PROCEDURE ONCE PRN 09/04/2025 5 Ended lidocaine (PF) (AKTEN PF) 3.5 % ophthalmic gel 2 DropIndications:Exudativ e age-related macular degeneration of both eyes with active choroidal neovascularization (CMS/HCC) 2 Drop INTRA-PROCEDURE ONCE PRN 09/04/2025 5 Ended povidone-iodine in balanced salt solution 0.25% eye drop 5 DropIndications:Exudativ e age-related macular degeneration of both eyes with active choroidal neovascularization (CMS/HCC) 5 Drop INTRA-PROCEDURE ONCE PRN 09/04/2025 5 Ended proparacaine (OPTHAINE) 0.5 % ophthalmic solution 5 DropIndications:Exudativ e age-related macular degeneration of both eyes with active choroidal neovascularization (CMS/HCC) 5 Drop INTRA-PROCEDURE ONCE PRN 09/04/2025 5 Ended tetracaine (AK-T-CLARA) 0.5 % ophthalmic solution 5 DropIndications:Exudativ e age-related macular degeneration of both eyes with active choroidal neovascularization (CMS/HCC) 5 Drop INTRA-PROCEDURE ONCE PRN 09/04/2025 5 Ended Active Problems Problem Noted Date Diagnosed Date [...] cholesterol 127, HDL 41, LDL 70 and [id number] October 2010 - total cholesterol 149, HDL 36, LDL 99 and triglycerides 72 12/2011 - total cholesterol 114, HDL 29, LDL 67 and triglycerides 90, AST 21, ALT 21 Gastritis 11/20/2008 07/06/2024 Overview (07/06/2024): GASTRITIS - Status is Inactive; Recorded 07/23/2016 4:49PM by Vero Melendez LPN, Annotation/Addendum; Promoted; acuity set as *; Burning chest pain 10/17/2008 12/200 9 Encounters Date Type Department Care Team Description 09/04/2025 9:50 AM HONING MACHINE OPERATOR TOOL Office Visit [facility] [place] [address] [address] Leslie Fields MD Exudative age-related macular degeneration of both eyes with active choroidal neovascularization (CMS/HCC) (Primary Dx) 06/26/2025 9:40 AM CDT Office Visit [facility] [address] [phone] Leslie Fields MD Exudative age-related macular degeneration of both eyes with active choroidal neovascularization (CMS/HCC) (Primary Dx); Cystoid macular edema of both eyes; Nuclear sclerotic cataract of both eyes; Night blindness 06/19/2025 Refill [facility] [address], [facility] [address] [place] [address] Prince Lui MD from Last 3 Months Immunizations Immunization Administration [...] on file Legal Sex Male 7:59 AM HONING MACHINE OPERATOR TOOL Gender Identity Not on file Sexual Orientation Not on file Last Filed Vital Signs Vital Sign Reading Time Taken Comments Blood Pressure 156/82 10/10/2024 12:06 PM HONING MACHINE OPERATOR TOOL Pulse 55 10/10/2024 12:06 PM HONING MACHINE OPERATOR TOOL Temperature 36.5 C (97.7 F) 07/18/2024 8:05 AM CDT Respiratory Rate 18 06/14/2021 7:10 AM CDT Oxygen Saturation 96% 10/10/2024 12:06 PM HONING MACHINE OPERATOR TOOL Inhaled Oxygen Concentration - - Weight 79.8 kg (176 lb) 10/10/2024 12:06 PM HONING MACHINE OPERATOR TOOL Height 175.3 cm (5' 9 ) 10/10/2024 12:06 PM HONING MACHINE OPERATOR TOOL Body Mass Index 25.99 10/10/2024 12:06 PM HONING MACHINE OPERATOR TOOL Plan of Treatment Upcoming Encounters Date Type Department Care Team (Late st Contact Info) Description 10/16/2025 8:30 AM HONING MACHINE OPERATOR TOOL Procedure visit [facility] Audiology [address] [place] [address] Charlie Gardner AU.D [address] [place] [address] 10/16/2025 9:00 AM HONING MACHINE OPERATOR TOOL Office Visit [facility] Ear, Nose and Throat [address] [place] [address] Ganesh Mari MD [address] [place] [address] 10/29/2025 10:40 AM HONING MACHINE OPERATOR TOOL Procedure visit [facility] Ophthalmology [place] [address] [place] [address] Leslie Fields MD [address] [place] [address] Health Maintenance Due Date Last [...] PCV) 10/02/2009 10/02/2008 INFLUENZA VACCINE (#1) 2025 2, 07/10/2020, 07/13/2015, Additional history exists COVID-19 Vaccine (4 - 2024-2 6 season) 2025 10/11/2021, 12/19/2020, 11/19/2020 Pre-Diabetes and Diabetes Screening 09/15/2027 09/15/2024, 11/30/2019 Procedures Procedure Name Priority Date/Time Associated Diagnosis Comments INTRAVITREAL INJECTION, PHARMACOLOGIC AGENT - OU - BOTH EYES Routine 09/04/2025 11:14 AM HONING MACHINE OPERATOR TOOL Exudative age-related macular degeneration of both eyes with active choroidal neovascularization (CMS/HCC) EYE DROPS Routine 09/04/2025 11:01 AM HONING MACHINE OPERATOR TOOL Exudative age-related macular degeneration of both eyes with active choroidal neovascularization (CMS/HCC) OCT, RETINA - OU - BOTH EYES Routine 09/04/2025 10:12 AM HONING MACHINE OPERATOR TOOL Exudative age-related macular degeneration of both eyes with active choroidal neovascularization (CMS/HCC) EYE DROPS Routine 09/04/2025 9:53 AM HONING MACHINE OPERATOR TOOL Exudative age-related macular degeneration of both eyes with active choroidal neovascularization (CMS/HCC) ZINC LEVEL Routine 06/27/2025 8:30 AM CDT [...] Recently Relevant to Health Maintenance Results * INTRAVITREAL INJECTION, PHARMACOLOGIC AGENT - OU - BOTH EYES (09/04/2025 11:14 AM HONING MACHINE OPERATOR TOOL) Narrative [facility] 09/04/2025 11:14 AM HONING MACHINE OPERATOR TOOL Time Out 09/04/2025. 11:14 AM. Confirmed correct patient, procedure, site, and patient consented. Procedure Right Eye Injection: 2 mg aflibercept 2 mg/0.05 mL Route: Intravitreal, Site: Eye, Right [facility]: 07400-335-96, Lot: [id number], Expiration date: 09/02/2026 Left Eye Injection: 2 mg aflibercept 2 mg/0.05 mL Route: Intravitreal, Site: Eye, Left NDC: 89212-113-92, Lot: [id number], Expiration date: 10/03/2026 Leslie Fields MD OPHTH CLINIC PROCEDURES Final R esult Performing Organization Address [facility] Co de Phone Number [facility]# [id number] [address] [place] [address] * EYE DROPS (09/04/2025 11:01 AM HONING MACHINE OPERATOR TOOL) Narrative [facility] - 09/04/2025 11:14 AM HONING MACHINE OPERATOR TOOL Medications Eye Drops: 2 Drop lidocaine (PF) 3.5 % Route: Topical, Site: Eye, Bilateral NDC: 86030-004-61, Lot: [id number], Expiration date: 07/03/2027 5 Drop povidone-iodine in balanced salt solution 0.25% Route: Topical, Site: Eye, Bilateral NDC: 1855-2410-02-18-001, Lot: [id number], Expiration date: 09/05/2025 5 Drop proparacaine 0.5 % Route: Topical, Site: Eye, Bilateral NDC: 23684-964-59, Lot: [id number], Expiration date: 03/02/2027 5 Drop tetracaine 0.5 % Route: Topical, Site: Eye, Bilateral NDC: 99415-447-36, Lot: [id number], Expiration date: 07/03/2026 Notes Eye drop orders per protocol for Intravitreal Injection Administer the following medications approximately 1 minute apart into the procedural/operative/affected eye 5 drops proparacaine (OPHTHAINE) 0.5% ophthalmic solution 5 drops of tetracaine (PF) 0.5% ophthalmic solution 5 drop of betadine mixture Leslie Fields MD OPHTH CLINIC PROCEDURES Final R esult Performing Organization Address [facility]/ZIP Co de Phone Number [facility]# [id number] [address] [address] * OCT, RETINA - OU - BOTH EYES (09/04/2025 10:12 AM HONING MACHINE OPERATOR TOOL) Narrative [facility] [place] - 09/04/2025 11:14 AM HONING MACHINE OPERATOR TOOL Optical Coherence Tomography ordered to evaluate the status of the macula: RIGHT EYE: Patchy atrophy There is mild intraretinal fluid Progressed intraretinal fluid LEFT EYE: Few cystic changes Patchy atrophy Progressed intraretinal fluid Leslie Fields MD OPHTH TOMOGRAPHY Final Result Performing Organization Address [facility] de Phone Number [facility]PHTH[place] ORDERS * EYE DROPS (09/04/2025 9:53 AM HONING MACHINE OPERATOR TOOL) Narrative [facility] - 09/04/2025 11:14 AM HONING MACHINE OPERATOR TOOL Medications Eye Drops: 1 Drop proparacaine 0.5 % Route: Topical NDC: 59093-024-97, Lot: [id number], Expiration date: 10/04/2026 Notes Eye drop orders per protocol for Basic Stud Sheep Farmer Eye Exam (Non-Dilated) Instill proparacaine (OPHTHAINE) 0.5% ophthalmic solution. Amount: 1 drop per eye prior to tonometry If applanation is preferred method of tonometry: Instill fluorescein-benoxinate (FLURATE) 0.3-0.4 % ophthalmic solution 1 drop per eye during applanation Leslie Fields MD OPHTH CLINIC PROCEDURES Final R esult Performing Organization Address [facility] Co de Phone Number [facility] CLIA# [id number] [address] [place] [address] * (ABNORMAL) ZINC LEVEL (06/27/2025 8:30 AM CDT) ZINC LEVEL 140(H) 60 - 130 mcg/dL [facility] Comment: (Note) This test was developed and its analytical performance characteristics have been determined by [employer]. It has not been cleared or approved by the FDA. This assay has been validated pursuant to the CLIA regulations and is used for clinical purposes. [facility] [address] [address],[address] [place], [place] [phone] Bella Scott MD, PhD Test Performed at: [facility] [address] [place] [address], [address] [place] [phone] Bella Scott MD,PhD Blood 06/27/2025 8:30 AM CDT 06/27/2025 8:31 AM CDT Leslie Fields MD CHEMISTRY ORDERABLES Final Resu lt [facility] [phone] [facility] [address] [place] [address], [address] [place] [phone] * VITAMIN A LEVEL (06/27/2025 8:30 AM CDT) [facility] VITAMIN A LEVEL 72 38 - 98 mcg/dL [employer] Comment: (Note) Clin Chem Vol. 34.No.8. [id number]. 1998 Vitamin supplementation within 24 hours prior to blood draw may affect the accuracy of results. This test was developed and its analytical performance characteristics have been determined by [employer]. It has not been cleared or approved by the FDA. This assay has been validated pursuant to the CLIA regulations and is used for clinical purposes. [facility] [address] [place] [address],[address] [place], [place] [phone] Bella Scott MD, PhD Test Performed at: [facility] [address] [place] [address], [address] [place] [phone] Bella Scott MD,PhD Blood 06/27/2025 8:30 AM CDT 06/27/2025 8:31 AM CDT Leslie Fields MD CHEMISTRY ORDERABLES Final Resu lt [facility] [phone] [facility] [address] [place] [address], [address] [place] [phone] * INTRAVITREAL INJECTION, PHARMACOLOGIC AGENT - OU - BOTH EYES (06/26/2025 11:36 AM CDT) Narrative [facility] - 06/26/2025 11:36 AM CDT Time Out 06/26/2025. 11:25 AM. Confirmed correct patient, procedure, site, and patient consented. Procedure Right Eye Injection: 2 mg aflibercept (EYLEA) 2 mg/0.05 mL intravitreal syringe Route: Intravitreal, Site: Eye, Right NDC: 20386-351-17, Lot: [id number], Expiration date: 09/02/2026 Left Eye Injection: 2 mg aflibercept (EYLEA) 2 mg/0.05 mL intravitreal syringe Route: Intravitreal, Site: Eye, Left NDC: 13172-371-80, Lot: [id number], Expiration date: 09/02/2026 Leslie Fields MD OPHTH CLINIC PROCEDURES Final R esult Performing Organization Address City/State/[facility] Co de Phone Number [facility] CLIA# [id number] [address] [place] [address] * EYE DROPS (06/26/2025 11:36 AM CDT) [facility] - 06/26/2025 11:36 AM CDT Medications Eye Drops: 2 Drop lidocaine PF (AKTEN PF) 3.5 % ophthalmic gel Route: Both Eyes NDC: 49934-481-79, Lot: [id number] 5 Drop povidone-iodine in balanced salt solution 0.25% Route: Topical, Site: Eye, Bilateral NDC: 5878-8319-27-18-001, Lot: [id number], Expiration date: 06/27/2025 5 Drop proparacaine 0.5 % Route: Topical, Site: Eye, Bilateral NDC: 82333-366-86, Lot: [id number], Expiration date: 03/02/2027 5 Drop tetracaine HCl (PF) 0.5 % Route: Topical, Site: Eye, Bilateral NDC: 5498-7745-19, Lot: [id number] Notes Eye drop orders per protocol for Intravitreal Injection Administer the following medications approximately 1 minute apart into the procedural/operative/affected eye 5 drops proparacaine (OPHTHAINE) 0.5% ophthalmic solution 5 drops of tetracaine (PF) 0.5% ophthalmic solution 5 drop of betadine mixture Leslie Fields MD [facility] PROCEDURES Final R esult Performing Organization Address City/[facility]/ZIP Co de Phone Number [facility] CLIA# [id number] [address] [place] [address] * EYE DROPS (06/26/2025 11:36 AM CDT) Narrative [facility] - 06/26/2025 11:36 AM CDT Medications Eye Drops: 1 Drop phenylephrine 2.5 % Route: Topical [facility]: 93022-276-94, Lot: [id number], Expiration date: 03/04/2026 1 Drop proparacaine 0.5 % Route: Topical ND: 93616-476-12, Lot: [id number], Expiration date: 10/05/2026 1 Drop tropicamide 1 % Route: Topical ND: 24600-821-02, Lot: [id number], Expiration date: 11/04/2025 Notes Eye drop orders per protocol for Basic Stud Sheep Farmer Eye Exam (Dilated) 1 Drop proparacaine (OPHTHAINE) 0.5% ophthalmic solution prior to tonometry 1 Drop tropicamide (MYDRIACYL) 1% ophthalmic solution 1 Drop phenylephrine (AK-DILATE, MYDFRIN) 2.5% ophthalmic solution Leslie Fields MD [facility] PROCEDURES Final R esult [facility] CLIA# [id number] [address] [address] * OCT, RETINA - OU - BOTH EYES (06/26/2025 10:26 AM CDT) Narrative [facility] [place]DERS - 06/26/2025 11:36 AM CDT Optical Coherence Tomography ordered to evaluate the status of the macula: RIGHT EYE: Patchy atrophy There is mild intraretinal fluid LEFT EYE: Few cystic changes Patchy atrophy us Leslie Fields MD OPHTH TOMOGRAPHY Final Result [facility] OPHTH[facility]Y ORDERS * HEMOGLOBIN A1C (09/15/2024) ABSTRACTED HGB A1C 6.2 % EXTERNAL LAB Blood 09/15/2024 us Charlie Magana MD CHEMISTRY ORDERABLES Final R esult EXTERNAL LAB from Last 3 Months or Most Recently Relevant to Health Maintenance Insurance MEDICARE PART A AND B Advance Directives For more information, please contact: [phone] * Full Code (Latest Code Status on File) Date Activated Date Inactivated Comments 07/18/2024 7:44 AM 07/18/2024 4:10 PM Care Teams Accountant Controller Relationship Specialty Start Date End Date Charlie Magana MD [facility] [place] [address] PCP - General Family Practice 12/01/16
--- OUTSIDE RECORDS SUMMARY | 2025-09-08 10:28 | XMS_ITS | Encounter Summary ---
Author Organization [facility] Address [address] [place] [address] Care Team Providers Care Commodity Merchant Name Role Phone Charlie Magana MD Primary Care Provider + [phone] Encounter Details Date Type Department Care Team (Late st Contact Info) Description 11/12/2010 [facility] [address] [place] [phone] Jenniffer Mensah, [facility] [address] [facility] [address] [place] [address] CAD (coronary artery disease) Social History Tobacco Use Types Packs/Day Years Used Date Smoking Tobacco: Every Day Cigarettes Smokeless Tobacco: Current Chew Alcohol Use Standard Drinks/Week Comments No 0 (1 standard drink = 0.6 oz pur e alcohol) Sex and Gender Information Value Date Recorded Sex Assigned at Not on file Legal Sex Male 4:31 AM PLANT DIRECTOR Gender Identity Not on file Sexual Orientation Not on file documented as of this encounter Plan of Treatment Not on file documented as of this encounter Procedures Procedure Name Priority Date/Time Associated Diagnosis Comments ECHO PRE TEST Routine 11/12/2010 11:32 AM PLANT DIRECTOR CAD (coronary artery disease) documented in this encounter Results * ECHO PRE TEST (11/12/2010 11:32 AM PLANT DIRECTOR) Narrative [facility] - 04/05/2013 11:30 AM CDT Final status, expect no report. Procedure Note Sgf Robert Donald, Radiologist, - 04/05/2013 Final status, expect no report. us Jenniffer Mensah [employer] US ORDERABLES Final Result [facility] documented in this encounter Visit Diagnoses Diagnosis CAD (coronary artery disease) Coronary atherosclerosis of unspecified type of vessel, [place] or graft documented in this encounter Care Teams Commodity Merchant Relationship Specialty Start Date End Date Charlie Magana MD [address] [place] [phone] PCP - General Family Practice 12/01/16 documented as of this encounter
--- OUTSIDE RECORDS SUMMARY | 2025-09-08 10:28 | XMS_ITS | Encounter Summary ---
Author Organization [facility] Address [address] [place] [address] Care Team Providers Care Tobacco Sweeper Name Role Phone Charlie Magana MD Primary Care Provider + [phone] Encounter Details Date Type Department Care Team (Late st Contact Info) Description 11/25/2007 Outpatient Historical [facility] Cardiology [facility] [address] [place] [address] Marcio Muñoz MD NO ADDRESS ON FILE Social History Tobacco Use Types Packs/Day Years Used Date Smoking Tobacco: Never Assessed Sex and Gender Information Value Date Recorded Sex Assigned at Not on file Legal Sex Male 4:31 AM PLANNING ANALYST Gender Identity Not on file Sexual Orientation [...] P 11/25/2007 4:59 P, 575 Document #: [id number] cc: NING ANALYST documented in this encounter Plan of Treatment Not on file documented as of this encounter Procedures Procedure Name Priority Date/Time Associated Diagnosis Comments ECHOCARDIOGRAM REPORT 11/28/2007 8:59 AM PLANNING ANALYST documented in this encounter Results * ECHOCARDIOGRAM REPORT (11/28/2007 8:59 AM PLANNING ANALYST) Narrative Transcriptions Martin Moran - 11/25/2007 12:00 [...] P 11/25/2007 4:59 P, 575 Document #: [id number] cc: us Martin Moran MD ECHO ORDERABLES Final Result documented in this encounter Visit Diagnoses Not on filedocumented in this encounter Care Teams Tobacco Sweeper Relationship Specialty Start Date End Date Charlie Magana MD [address] [place] [address] PCP - General Family Practice 12/01/16 documented as of this encounter
--- OUTSIDE RECORDS SUMMARY | 2025-09-08 10:28 | XMS_ITS | Encounter Summary ---
Author Organization [facility] Address [address] [place] [address] Care Team Providers Care Box Spinner Name Role Phone Charlie Magana MD Primary Care Provider + [phone] Encounter Details Date Type Department Care Team (Late st Contact Info) Description 11/22/2007 Outpatient Historical [facility] Cardiology- [place] [address] [place] [phone] Jules Mensah MD [address] [place] [phone] Social History Tobacco Use Types Packs/Day Years Used Date Smoking Tobacco: Never Assessed Sex and Gender Information Value Date Recorded Sex Assigned at Not on file Legal Sex Male 4:31 AM CASTING CHIPPER Gender Identity Not on file Sexual Orientation Not on file documented as of this encounter Plan of Treatment Not on file documented as of this encounter Visit Diagnoses Not on filedocumented in this encounter Care Teams Box Spinner Relationship Specialty Start Date End Date Charlie Magana MD [address] [place] [phone] PCP - General Family Practice 12/01/16 documented as of this encounter
--- OUTSIDE RECORDS SUMMARY | 2025-09-08 10:28 | XMS_ITS | Encounter Summary ---
Author Organization [facility] Address [address] [place] [address] Care Team Providers Care Charge Rn Name Role Phone Charlie Magana MD Primary Care Provider + [phone] Encounter Details Date Type Department Care Team (Latest Contact Info) Description 10/26/[address] 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
--- OUTSIDE RECORDS SUMMARY | 2025-09-08 10:28 | XMS_ITS | Encounter Summary ---
Author Organization [facility] Address [address] [place] [address] Care Team Providers Care Shipping Supervisor Name Role Phone Charlie Magana MD Primary Care Provider + [phone] Encounter Details Date Type Department Care Team (Late st Contact Info) Description 10/07/2008 Emergency [facility] [address] 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 Gender Identity Not on file Sexual Orientation Not on file documented as of this encounter Plan of Treatment Not on file documented as of this encounter Procedures Procedure Name Priority Date/Time Associated Diagnosis Comments XR CHEST PA OR AP 1 VW Routine 10/07/2008 5:57 PM TERRITORY SALES REPRESENTATIVE CARDIAC ENZYMES Stat 10/07/2008 5:48 PM TERRITORY SALES REPRESENTATIVE CBC WITH DIFFERENTIAL Stat 10/07/2008 5:48 PM TERRITORY SALES REPRESENTATIVE PTT Stat 10/07/2008 5:48 PM TERRITORY SALES REPRESENTATIVE PROTIME-INR Stat 10/07/2008 5:48 PM TERRITORY SALES REPRESENTATIVE BASIC METABOLIC PANEL Stat 10/07/2008 5:48 PM TERRITORY SALES REPRESENTATIVE documented in this encounter Results * XR CHEST PA OR AP (10/07/2008 5:57 PM TERRITORY SALES REPRESENTATIVE) Anatomical Region Laterality Modality Chest Other 10/07/2008 5:57 PM TERRITORY SALES REPRESENTATIVE Narrative 10/08/2008 12:36 AM TERRITORY SALES REPRESENTATIVE Exam: Chest - Portable Date/Time of Exam: [...] (ABNORMAL) BASIC METABOLIC PANEL (10/07/2008 5:48 PM TERRITORY SALES REPRESENTATIVE) CREATININE 1.0 0.7 - 1.5 mg/dL [facility] CALCIUM 9.9 8.4 - 10.5 mg/dL [facility] GLUCOSE 150(H) 70 - 110 mg/dL [facility] CHLORIDE 105 95 - 110 mEq/L [facility] SODIUM 140 136 - 145 mEq/L [facility] ANION GAP 13 9 - 20 mEq/L [facility] BUN 14 9 - 20 mg/dL [facility] CO2 26 22 - 32 mmol/l [facility] OSMOLALITY, CALCULATED 291 275 - 295 mOsm/Kg [facility] POTASSIUM 4.0 3.5 - 5.0 mEq/L [facility] Blood specimen (specimen) 10/07/2008 5:48 PM TERRITORY SALES REPRESENTATIVE 10/07/2008 6:16 PM TERRITORY SALES REPRESENTATIVE us Eddie Quijano MD CHEMISTRY ORDERABLES Final Resul t INTERFACE SYSTEM Refer to clinic/hospital department [facility] CLIA# [id number] [address] [place] [address] * (ABNORMAL) CBC WITH DIFFERENTIAL (10/07/2008 5:48 PM TERRITORY SALES REPRESENTATIVE) EOSINOPHIL ABSOLUTE 0.2 0.0 - 0.7 K/ul [facility] RBC 5.67 4.60 - 6.20 Mil/ul [facility] LYMPHOCYTES 17.6(L) 24.0 - 44.0 % [facility] MCHC 34.5 30.0 - 35.0 g/dL [facility] LYMPHOCYTE ABSOLUTE 1.5 1.2 - 4.0 K/ul [facility] MCV 88.4 84.0 - 103.0 Fl [facility] MPV 9.5 8.9 - 12.8 Fl [facility] BASOPHILS ABSOLUTE 0.0 0.0 - 0.2 K/ul [facility] BASOPHILS 0.5 0.0 - 1.0 % [facility] HEMOGLOBIN 17.3 14.0 - 18.0 g/dL [facility] RDW 13.2 11.0 - 14.5 % [facility] MONOCYTE ABSOLUTE 0.7(H) 0.1 - 0.6 K/ul [facility] MONOCYTES 8.6 2.0 - 10.0 % [facility] WBC 8.6 4.8 - 10.8 K/ul [facility] MCH 30.5 27.0 - 34.0 pg [facility] NEUTROPHIL ABSOLUTE 6.1 2.0 - 8.0 K/ul [facility] NEUTROPHILS 70.6 42.2 - 75.2 % [facility] HEMATOCRIT 50.1 41.0 - 53.0 % [facility] EOSINOPHILS 2.7 0.0 - 7.0 % [facility] PLATELETS 303 140 - 440 K/ul [facility] Blood specimen (specimen) 10/07/2008 5:48 PM TERRITORY SALES REPRESENTATIVE 10/07/2008 6:16 PM TERRITORY SALES REPRESENTATIVE us Eddie Quijano MD HEMATOLOGY ORDERABLES Final Resu lt Performing Organization Address [facility] Phone Number INTERFACE SYSTEM Refer to clinic/hospital department [facility] CLIA# [id number] [address] [place] [address] * PTT (10/07/2008 5:48 PM TERRITORY SALES REPRESENTATIVE) PTT 26.0 22.5 - 36.5 Secs [facility] Comment: Therapeutic Range: Hi-level PE/DVT heparin protocol 80.1 -95.0 sec Lo-level PE/DVT heparin protocol 67.1 - 80.0 sec Cardiac Heparin Protocol 67.1 - 85.0 sec Neuro Heparin Protocol 67.1 - 80.0 sec As of 12/22/2007 note change in APTT Normal Range. Blood specimen (specimen) 10/07/2008 5:48 PM TERRITORY SALES REPRESENTATIVE 10/07/2008 6:16 PM TERRITORY SALES REPRESENTATIVE us Eddie Quijano MD HEMATOLOGY ORDERABLES Final Resu lt Performing Organization Address [facility] de Phone Number INTERFACE SYSTEM Refer to clinic/hospital department [facility] CLIA# [id number] [address] [place] [address] * PROTIME-INR (10/07/2008 5:48 PM TERRITORY SALES REPRESENTATIVE) INR 0.9 [facility] Comment: Expected Values for INR: DVT/PE Goal INR 2.5; range 2.0 - 3.0 Valve Replacement Tissue Goal INR 2.5; range 2.0 - 3.0 Mechanical Goal INR 3.0; range 2.5 - 3.5 POST-NE Goal INR 2.5; range 2.0 - 3.0 or Goal 3.0; range 2.5 - 3.5 Atrial Fibrillation Goal INR 2.5; range 2.0 - 3.0 Ischemic Stroke Goal INR 2.5; range 2.0 - 3.0 For additional information see Guidelines for Anticoagulation available from the pharmacy Meredith Viramontes D. [phone] PROTIME 13.5 12.8 - 15.8 Secs [facility] Comment:As of 2007 not e change in normal range. Blood specimen (specimen) 10/07/2008 5:48 PM TERRITORY SALES REPRESENTATIVE 10/07/2008 6:16 PM TERRITORY SALES REPRESENTATIVE us Eddie Quijano MD HEMATOLOGY ORDERABLES Final Resu lt Performing Organization Address [facility] de Phone Number INTERFACE SYSTEM Refer to clinic/hospital department [facility] CLIA# [id number] [address] [place] [address] * CARDIAC ENZYMES (10/07/2008 5:48 PM TERRITORY SALES REPRESENTATIVE) CKMB 0.6 0.0 - 5.0 ng/mL [facility] TROPONIN I <0.1 0.0 - 1.3 ng/mL [facility] Blood specimen (specimen) 10/07/2008 5:48 PM TERRITORY SALES REPRESENTATIVE 10/07/2008 6:16 PM TERRITORY SALES REPRESENTATIVE us Eddie Quijano MD CHEMISTRY ORDERABLES Final Resul t Performing Organization Address [facility] de Phone Number INTERFACE SYSTEM Refer to clinic/hospital department [facility] CLIA# [id number] [address] [place] [address] documented in this encounter Visit Diagnoses Not on filedocumented in this encounter Care Teams Shipping Supervisor Relationship Specialty Start Date End Date Charlie Magana MD [address] [place] [phone] PCP - General Family Practice 12/01/16 documented as of this encounter
--- OUTSIDE RECORDS SUMMARY | 2025-09-08 10:28 | XMS_ITS | Clinical Summary ---
Author Organization [facility] Address [address] 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
[2025-09-08 10:39] VITALS: BP 168/72; PULSE 57; RESP 20; TEMP 36.6; O2SAT 100; BMI 23.6
--- NOTE | 2025-09-08 10:41 | CTR_ITS ---
PROCEDURE INFORMATION: Exam: CT Abdomen And Pelvis With Contrast Exam date and time: 09/08/2025 11:06 AM Age: 69 years old Clinical indication: Abdominal pain; Flank; Left; Additional info: L flank/back pain TECHNIQUE: Imaging protocol: Computed tomography of the abdomen and pelvis with contrast. Radiation optimization: All CT scans at this facility use at least one of these dose optimization techniques: automated exposure control; mA and/or kV adjustment per patient size (includes targeted exams where dose is matched to clinical indication); or iterative reconstruction. Contrast material: OMNIPAQUE 350; Contrast volume: 100 ml; Contrast route: INTRAVENOUS (IV); COMPARISON: MR lumbar spine wo con* [id number] 01/16/2021 9:51 AM RADIATION DOSE METRICS: Total DLP (mGy-cm): 587.2 FINDINGS: Lungs: Linear atelectatic changes along the right posterior basal segment. Liver: Hepatomegaly with the liver measuring 18.9 centimeters. Gallbladder and biliary ducts: Normal. No calcified stones. No ductal dilatation. Pancreas: Normal. No ductal dilatation. Spleen: Punctate calcifications consistent with remote granulomatous disease. Adrenal glands: Normal. No mass. Kidneys and ureters: No suspicious renal mass. No hydronephrosis or nephrolithiasis. Ureters are normal. Simple cysts in the left kidney. Stomach and bowel: Stomach is partially collapsed. No mechanical bowel obstruction. Scattered colonic diverticula without any evidence of acute diverticulitis. Appendix: Normal appendix. Intraperitoneal space: No free air. No significant fluid collection. Vasculature: Scattered calcified atherosclerotic plaques of the abdominal aorta and iliac arteries with mild stenosis. Calcified plaques at the origins of the celiac and SMA arteries with moderate to severe stenosis. Lymph nodes: No enlarged lymph nodes. Urinary bladder: Unremarkable as visualized. Reproductive: Enlarged prostate with nodular indentation of the bladder base. Bones/joints: Unremarkable. No acute fracture. Soft tissues: Unremarkable. CT/CT abdomen pelvis w con* [id number] IMPRESSION: 1. No hydronephrosis or nephrolithiasis 2. Prostatomegaly with nodular indentation of the bladder base. Defer to clinical and laboratory assessment and PSA levels. 3. Diverticulosis without evidence of acute diverticulitis. 4. 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 COMMENTS: Consistent with the [employer]'s Incidental Findings Committee white paper (J Am James Radiol 2018): Any incidental renal lesion less than 1 cm or classified as too small to characterize, or any incidental cystic renal lesion characterized as simple-appearing, is likely benign. No follow-up imaging is recommended for these lesions per consensus recommendations based on imaging criteria.
--- NOTE | 2025-09-08 10:50 | W.ED.ABDPA2 ---
HPI - Abdominal Pain General: Chief Complaint: Abdominal Pain Stated Complaint: L side Pain chen N Time Seen by Provider: 09/08/25 10:35 Source: patient Mode of arrival: ambulatory Limitations: no limitations History of Present Illness: 69-year-old male states he been having left lower quadrant abdominal pain along with flank pains been going on earlier this week. He states the pain is worsened over the last 2 days. States that sharp in nature rates it a 10 out of 10. State is worse with walking. He denies any dysuria denies any leg weakness denies any bowel or bladder incontinence. Denies any fevers. Related Data Home Medications ?Medication ?Instructions ?Recorded ?Confirmed clopidogrel 75 mg tablet 75 mg PO DAILY 02/25/23 09/03/25 diltiazem HCl 240 mg 240 mg PO DAILY 02/25/23 09/03/25 capsule,extended release 24 hr hydrochlorothiazide 25 mg tablet 25 mg PO DAILY 02/25/23 09/03/25 rosuvastatin 40 mg tablet 40 mg PO BEDTIME 02/25/23 09/03/25 evolocumab 140 mg/mL subcutaneous 140 mg SUBCUT .Q2W 11/22/23 09/03/25 pen injector (Wilman Almodovar) nitroglycerin 0.4 mg sublingual See Rx Instructions .Route .COMPLEX 09/03/25 09/03/25 tablet spironolactone 25 mg tablet 12.5 mg PO DAILY 09/03/25 09/03/25 (Aldactone) Previous Rx's ?Medication ?Instructions ?Recorded losartan 100 mg tablet 100 mg PO DAILY #30 tabs 05/25/24 pantoprazole 40 mg tablet,delayed 40 mg PO DAILY #90 tabs 05/10/25 release diclofenac sodium 75 mg 75 mg PO Q12H PRN pain #20 tabs 09/03/25 tablet,delayed release tizanidine 4 mg tablet 4 mg PO Q6H PRN muscle spasticity 09/03/25 #20 tabs hydrocodone 5 mg-acetaminophen 325 1 tab PO Q6H PRN pain #14 tabs 09/08/25 mg tablet Allergies Allergy/AdvReac Type Severity Reaction Status Date / Time Penicillins Allergy Unknown unknown Verified 09/03/25 12:54 Review of Systems GI: Reports: abdominal pain : Reports: flank pain PFSH ED PFSH: Medical History Coronary artery disease Diabetes mellitus Hypertension High cholesterol Surgical History History of heart artery stent Family History Other Cancer Diabetes Social History Smoking and tobacco/nicotine status: never used tobacco/nicotine Alcohol intake: never Household members: spouse Marital status: Current occupational status: employed Current occupation: [employer] Physical Exam Const: COMMON NORMALS: no acute distress, patient oriented x3 and healthy appearing HENMT: COMMON NORMALS: normocephalic and atraumatic HEAD & SCALP: normocephalic and atraumatic Neck/C-Spine: COMMON NORMALS: full ROM and supple Chest: COMMONS NORMALS: normal inspection of the chest Resp: COMMON NORMALS: normal respiratory effort Cardio: COMMON NORMALS: regular rate, regular rhythm and No murmurs present (Cardio) RATE: regular rate RHYTHM: regular rhythm GI: COMMON NORMALS: Normal to inspection, nondistended, normoactive bowel sounds present, Soft to palpation and no masses PALPATION: Yes Soft to palpation and Yes Tenderness to palpation present (GI) Details: LLQ Back/Pelvis: OTHER: Tenderness to left lower back no saddle anesthesia Extremity: COMMON NORMALS: normal to inspection and full ROM Neuro: COMMON NORMALS: patient oriented x3, moves all extremities and no focal motor deficits Psych: COMMON NORMALS: mental status grossly normal, Normal thought process present and cooperative THOUGHT PROCESS: Normal thought process present Skin: COMMON NORMALS: no rashes or lesions noted and no wounds GENERAL SKIN EXAM: no rashes or lesions noted Course Vital Signs: Vital signs: Vital Signs Temperature 97.8 F 09/08/25 10:39 Pulse Rate 55 L 09/08/25 11:17 Respiratory Rate 18 09/08/25 10:59 Blood Pressure 165/60 09/08/25 11:17 Pulse Oximetry 99 09/08/25 11:17 Oxygen Delivery Me thod Room Air 09/08/25 11:17 MDM - Abdominal Pain Medical Decision Making 69-year-old male presents here with left flank and lower abdominal pain differential includes kidney stone, pyelonephritis, diverticulitis. Patient CT scan here shows no the above patient's blood work urinalysis showed no significant abnormality. On exam he has no saddle esthesia has no signs of epidural abscess or cord compression. Likely muscular pain in his left lower back. Did give him Decadron here he is continue muscle relaxants his pain is much improved here with IV pain meds. Will prescribe hydrocodone as well. I went over all these findings with him he is to follow-up his PCP in 2 to 4 days and return if worsening he understands agrees to plan Medical Records I reviewed the patient's medical records. Lab Data I reviewed the patient's lab results. 09/08/25 10:50 09/08/25 10:50 Labs/Radiology: Radiology Impressions Abdomen/Pelvis CT 09/08/25 10:41 IMPRESSION: 1. No hydronephrosis or nephrolithiasis 2. Prostatomegaly with nodular indentation of the bladder base. Defer to clinical and laboratory assessment and PSA levels. 3. Diverticulosis without evidence of acute diverticulitis. 4. 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 COMMENTS: Consistent with the [employer]'s Incidental Findings Committee white paper (J Am James Radiol 2018): Any incidental renal lesion less than 1 cm or classified as too small to characterize, or any incidental cystic renal lesion characterized as simple-appearing, is likely benign. No follow-up imaging is recommended for these lesions per consensus recommendations based on imaging criteria. Laboratory Results WBC 8.28 10^3/uL (3.29-11.43) 09/08/25 10:50 RBC 5.48 10^6/uL (3.85-5.65) 09/08/25 10:50 Hgb 15.30 g/dL (11.27-16.99) 09/08/25 10:50 Hct 45.8 % (37-53) 09/08/25 10:50 MCV 83.6 fl (82-101) 09/08/25 10:50 MCH 27.9 pg (27-33) 09/08/25 10:50 MCHC 33.4 g/dL (30-55) 09/08/25 10:50 RDW 15.4 % (12.1-15.1) H 09/08/25 10:50 Plt Count 342 10^3/cmm (157-399) 09/08/25 10:50 MPV 8.9 fL (7.4-10.4) 09/08/25 10:50 Neut % (Auto) 71.5 % 09/08/25 10:50 Lymph % (Auto) 13.9 % 09/08/25 10:50 [place] % (Auto) 10.6 % 09/08/25 10:50 Eos % (Auto) 3.1 % 09/08/25 10:50 Baso % (Auto) 0.8 % 09/08/25 10:50 Neut # (Auto) 5.91 10^3/uL (1.8-7.7) 09/08/25 10:50 Lymph # (Auto) 1.2 10^3/uL (0.8-4.8) 09/08/25 10:50 [place] # (Auto) 0.9 10^3/uL (0.2-0.9) 09/08/25 10:50 Eos # (Auto) 0.3 10^3/uL (0.0-0.8) 09/08/25 10:50 Baso # (Auto) 0.1 10^3/uL (0.0-0.1) 09/08/25 10:50 Nucleated RBC % (auto) 0 % 09/08/25 10:50 Nucleated RBCs # 0.0 /100WBC 09/08/25 10:50 Sodium 135 mmol/L (136-145) L 09/08/25 10:50 Potassium 4.3 mmol/L (3.5-5.1) 09/08/25 10:50 Chloride 100 mmol/L (98-107) 09/08/25 10:50 Carbon Dioxide 21 mmol/L (22-29) L 09/08/25 10:50 Anion Gap 18.3 (5-19) 09/08/25 10:50 BUN 23 mg/dL (8-23) 09/08/25 10:50 Creatinine 1.2 mg/dL (0.7-1.2) 09/08/25 10:50 GFR Calculation 60.0 mL/min (90-130) L 09/08/25 10:50 Glucose 128 mg/dL (65-115) H 09/08/25 10:50 Calculated Osmolality 285 mOsm/kg (285-295) 09/08/25 10:50 Calcium 9.4 mg/dL (8.5-10.5) 09/08/25 10:50 Total Bilirubin 0.5 mg/dL (0.15-1.2) 09/08/25 10:50 AST 39 U/L (0-40) 09/08/25 10:50 ALT 37 U/L (0-41) 09/08/25 10:50 Alkaline Phosphatase 114 U/L (40-130) 09/08/25 10:50 Total Protein 7.6 g/dL (6.6-8.7) 09/08/25 10:50 Albumin 4.3 g/dL (3.5-5.2) 09/08/25 10:50 Globulin 3.3 g/dL (1.3-4.6) 09/08/25 10:50 Lipase 27 U/L (13-60) 09/08/25 10:50 Urine Color Yellow (Yellow) 09/08/25 11:24 Urine Appearance Clear (CLEAR) 09/08/25 11:24 Urine pH 6.5 (5-7) 09/08/25 11:24 Ur Specific Mclean 1.028 (1.005-1.030) 09/08/25 11:24 Urine Protein 1+ (Negative) A 09/08/25 11:24 Urine Glucose (UA) Negative (Normal) 09/08/25 11:24 Urine Ketones Negative (Negative) 09/08/25 11:24 Urine Blood Negative (Negative) 09/08/25 11:24 Urine Nitrate Negative (Negative) 09/08/25 11:24 Urine Bilirubin Negative (Negative) 09/08/25 11:24 Urine Urobilinogen 1.0 mg/dL (Negative) 09/08/25 11:24 Ur Leukocyte Esterase Trace (Negative) A 09/08/25 11:24 Urine RBC 0-2 /hpf (0-2) 09/08/25 11:24 Urine WBC 0-5 /hpf (0-5) 09/08/25 11:24 Ur Squamous Epith Cells 0-5 /hpf (0-5) 09/08/25 11:24 Amorphous Sediment Not Reportable 09/08/25 11:24 Urine Bacteria None seen /hpf (NONE) 09/08/25 11:24 Hyaline Casts 0-4 /lpf H 12/06/25 11:24 All radiology interpretation(s) finalized by discharge Discharge Plan Discharge Patient Disposition: Home Clinical Impression: Low back pain Condition: Stable Prescriptions: New hydrocodone-acetaminophen 5-325 mg tablet 1 tab PO Q6H PRN (Reason: pain) Qty: 14 0RF No Action clopidogrel 75 mg tablet 75 mg PO DAILY diltiazem HCl 240 mg capsule,extended release 24hr 240 mg PO DAILY hydrochlorothiazide 25 mg tablet 25 mg PO DAILY rosuvastatin 40 mg tablet 40 mg PO BEDTIME losartan 100 mg tablet 100 mg PO DAILY Qty: 30 11RF Repatha SureClick 140 mg/mL pen injector 140 mg SUBCUT .Q2W pantoprazole 40 mg tablet,delayed release (DR/EC) 40 mg PO DAILY Qty: 90 3RF nitroglycerin 0.4 mg tablet, sublingual See Rx Instructions .ROUTE .COMPLEX Rx Instructions: DISSOLVE ONE TABLET UNDER THE TONGUE EVERY 5 MINUTES NEEDED FOR CHEST PAIN. DO NOT EXCEED A TOTAL OF 3 DOSES IN 15 MINUTES spironolactone [Aldactone] 25 mg Tablet 12.5 mg PO DAILY diclofenac sodium 75 mg tablet,delayed release (DR/EC) 75 mg PO Q12H PRN (Reason: pain) Qty: 20 0RF tizanidine 4 mg tablet 4 mg PO Q6H PRN (Reason: muscle spasticity) Qty: 20 0RF Rx Instructions: do not exceed 3 doses per 24 hrs Discharge Orders: Discharge ED (Routine); Ordered 09/08/25 Ordered By: Shreya Wu Referrals: Charlie Magana MD [Primary Care Provider, Family Practice] - 4-7 days Discharge Diet: Advance as tolerated Discharge Activity: Resume usual activity Patient Instructions: Back Pain (ED) Print Language: Estonian Coding Level of Care Code ED Merchandise Complaint Adjuster for Radames Campuzano
[2025-09-08 10:59] VITALS: RESP 18; O2SAT 97
[2025-09-08] MEDS: ondansetron 2 mg/ML SDV 2 mL 4 MG IVP (10:59)
[2025-09-08] MEDS: morphine 4 mg/mL SDV 1 mL IVP (10:59)
[2025-09-08 11:00] LABS: Hematocrit 45.8 % (37-53); Hemoglobin 15.30 g/dL (11.27-16.99); Mean Corpuscular HGB Conc 33.4 g/dL (30-55); Mean Corpuscular Hemoglobin 27.9 pg (27-33); Mean Corpuscular Volume 83.6 fl (82-101); Nucleated Red Blood Cells % 0 %; Platelet Count 342 10^3/cmm (157-399); Red Blood Count 5.48 10^6/uL (3.85-5.65); White Blood Count 8.28 10^3/uL (3.29-11.43)
[2025-09-08 11:02] VITALS: BP 174/72
[2025-09-08] MEDS: iohexol 350 mg/mL 500 mL Btl (per mL) IV (11:11)
[2025-09-08 11:16] LABS: Alanine Aminotransferase 37 U/L (0-41); Albumin Level 4.3 g/dL (3.5-5.2); Alkaline Phosphatase 114 U/L (40-130); Blood Urea Nitrogen 23 mg/dL (8-23); Calcium 9.4 mg/dL (8.5-10.5); Carbon Dioxide 21 mmol/L (22-29); Chloride 100 mmol/L (98-107); Globulin 3.3 g/dL (1.3-4.6); Glucose 128 mg/dL (65-115); Lipase 27 U/L (13-60); Osmolality Calculated 285 mOsm/kg (285-295); Sodium 135 mmol/L (136-145); Total Protein 7.6 g/dL (6.6-8.7)
[2025-09-08 11:17] VITALS: BP 165/60; PULSE 55; O2SAT 99
[2025-09-08 11:20] LABS: Anion Gap 18.3 (5-19); Aspartate Amino Transferase 39 U/L (0-40); Potassium 4.3 mmol/L (3.5-5.1)
[2025-09-08 11:30] LABS: Glucose Urine UA Negative (Normal); Nitrate Urine Negative (Negative); Specific Gravity, Urine 1.028 (1.005-1.030)
[2025-09-08 11:35] LABS: Add Urine Microscopic? YES
[2025-09-08 11:50] VITALS: BP 123/63; PULSE 54; O2SAT 97
== END 2025-09-08 11:55 | disposition home or self-care (01) ==
PROVIDERS: Emergency Provider Emergency Medicine; PCP Family Medicine
DX: M54.50 Low back pain, unspecified (principal); Z79.02 Long term (current) use of antithrombotics/antiplatelets; E11.9 Type 2 diabetes mellitus without complications; I10 Essential (primary) hypertension; I25.10 Atherosclerotic heart disease of native coronary artery without angina pectoris
CPT/HCPCS: 36415; 74177; 80053; 81001; 83690; 85025; 96374; 96375; 99285; J1100; J1885; J2270; J2405